=== PATIENT | female | born 1935 | race Caucasian/White ===

== ENCOUNTER 2017-01-12 15:14 | Inpatient (IN) ==
[2017-01-12] MEDS ORDERED: Furosemide 40 MG/4 ML VIAL IVP ONE (15:33)
--- NOTE | 2017-01-12 15:36 | Emergency Department Note ---
Disposition Clinical Impression: Congestive heart failure Qualifiers: Congestive heart failure type: unspecified congestive heart failure type Congestive heart failure chronicity: acute Qualified Code(s): I50.9 - Heart failure, unspecified Disposition: Admitted As Inpatient Condition: Fair Referrals: Ary Aponte MD [Primary Care Provider] - Forms: ED Satisfaction Letter Time of Disposition: 17:09 SOB HPI - General Chief Complaint: ED Shortness of Breath/Dyspnea Stated Complaint: [place] Time Seen by Provider: 01/12/17 15:19 Source: patient Mode of arrival: wheelchair Limitations: no limitations Nursing Notes Reviewed: Yes Vital Signs Reviewed: Yes - History of Present Illness 81-year-old comes in with increasing shortness of breath for the last several days. Patient has a history of CHF and has had a 10 pound weight gain in the last week. She does have increased lower extremity edema. Pt Subjective Complaint: shortness of breath Onset (ago): day(s) Severity: moderate Consistency/Duration: constant Improves with: nothing Worsens with: exertion Known history of: congestive heart failure Associated symptoms: Reports: wheezing. Denies: fever Treatment prior to arrival: none - Related Data Home Medications Medication Instructions Recorded Confirmed Aspirin [Adult Low Dose Aspirin EC] 81 mg PO QAM 10/02/15 01/12/17 Atorvastatin [Lipitor] 40 mg PO QPM 10/02/15 01/12/17 Benzonatate [Tessalon] 100 mg PO TID PRN 10/02/15 01/12/17 Calcium Carbonate/Vitamin D3 2 each PO QAM 10/02/15 01/12/17 [Calcium 600 + Vit D Tablet] Cholecalciferol (Vitamin D3) 1,000 unit PO BID 10/02/15 01/12/17 [Vitamin D3] Diazepam [Valium] 10 mg PO BID PRN 10/02/15 01/12/17 Digoxin [Lanoxin] 0.125 mg PO QAM 10/02/15 01/12/17 Furosemide [Lasix] 80 mg PO BID 10/02/15 01/12/17 Levothyroxine [Synthroid] 150 mcg PO QAM 10/02/15 01/12/17 Loratadine [Claritin] 10 mg PO QAM 10/02/15 01/12/17 Nitroglycerin [Nitrostat] 0.4 mg SL Q5M PRN 10/02/15 01/12/17 Omeprazole [PriLOSEC] 40 mg PO BID 10/02/15 01/12/17 Potassium Chloride [K-Tab ER] 20 meq PO BID 10/02/15 01/12/17 Warfarin [Coumadin] 2.5 mg PO DAILY 10/02/15 01/12/17 Spironolactone [Aldactone] 25 mg PO QPM 08/06/16 01/12/17 Carvedilol 3.125 mg PO BID 01/12/17 01/12/17 Insulin Lispro Protamin/Lispro 14 unit SQ QPM 01/12/17 01/12/17 [Humalog Mix 75-25 Vial] Insulin Lispro Protamin/Lispro 20 unit SQ QAM 01/12/17 01/12/17 [Humalog Mix 75-25 Vial] Tramadol HCl [Ultram] 50 mg PO Q6H PRN 01/12/17 01/12/17 Allergies Allergy/AdvReac Type Severity Reaction Status Date / Time acetaminophen [From Percocet] Allergy See Verified 01/12/17 15:24 Comments metoprolol Allergy Anaphylaxis Verified 01/12/17 15:24 Oxycodone [From Percocet] Allergy See Verified 01/12/17 15:24 Comments dye Allergy Anaphylaxis Uncoded 10/02/15 11:44 vicodin Allergy See Uncoded 08/06/16 17:30 Comments All systems ED: reviewed and negative except as stated. Constitutional: Denies: fever, chills, weakness, weight change Eyes: Denies: eye pain, eye discharge, vision change ENT ED: Denies: ear pain, throat pain, dental pain, hearing loss, epistaxis, congestion, dysphagia Cardiovascular: Denies: chest pain, palpitations, dyspnea on exertion, edema, syncope Respiratory: Reports: dyspnea. Denies: cough, wheezes, hemoptysis, stridor Gastrointestinal: Denies: abdominal pain, nausea, vomiting, diarrhea, constipation, hematemesis, melena, hematochezia Genitourinary: Denies: dysuria, frequency, hematuria, discharge Musculoskeletal: Denies: back pain, neck pain, arthralgia, myalgia Integumentary: Denies: rash, abrasion, lesions Neurological: Denies: headache, weakness, numbness, paresthesias, confusion, abnormal gait, vertigo Psychiatric: Denies: anxiety, depression, suicidal thoughts, homicidal thoughts , auditory hallucinations, visual hallucinations Endocrine: Denies: fatigue Hematological/Lymphatic: Denies: easy bleeding, easy bruising Allergic/Immunologic: Denies: facial swelling, urticaria Past Medical History - Past Medical History Medical history: Reports: atrial fibrillation, cancer, cardiomyopathy, CHF, coronary artery disease, CVA, diabetes, other Surgical history: Reports: coronary bypass (CABG), pacemaker/AICD Psychiatric history: Reports: no psych history - Social History Smoking Status: Former smoker Smokeless Tobacco Status: No Alcohol use: Reports: none Drug use: Reports: none Physical Exam - General Limitations: no limitations General appearance: alert, in distress - Head Head exam: atraumatic, normocephalic, normal inspection - ENT ENT exam: normal exam, normal oropharynx, mucous membranes moist - Neck Neck exam: Present: normal inspection, full ROM, trachea midline, other (2-3 cm of JVD at 45) - Chest Chest inspection: Present: normal inspection, symmetric chest wall rise - Respiratory Respiratory exam: Present: other (Diminished breath sounds with rales in the bases) - Cardiovascular Cardiovascular exam: Present: regular rate, normal rhythm, normal heart sounds - Abdominal Exam Abdominal exam: Present: soft, Non-Tender. Absent: tenderness, distention, guarding, rebound, rigidity - Extremities Exam Extremities exam: Present: pedal edema - Expanded Lower Extremity Exam Neurovascular/Tendon exam: Absent: motor deficit, sensory deficit, tendon deficit Gait: observed and normal - Back Exam Back exam: Present: normal inspection, full ROM. Absent: tenderness - Neurological Exam Neurological exam: Present: alert, oriented X3 - Psychiatric Psychiatric exam: Present: normal affect, normal mood - Skin Skin exam: Present: warm, dry, intact, normal color Course - Reevaluation(s) Reevaluation #1: 81-year-old female comes in with increasing shortness of breath and lower extremity edema. Examination shows rales in the bases. Chest x-ray was read by radiology as showing some pleural fluid however does look like she does have some pulmonary congestion. Her BNP is over 1200. Time: 17:08 - Consultations Consultation #1: Discussed with Dr. Angelo, admit. Time: 18:02 Vital Signs Temperature 97.5 F L 01/12/17 15:17 Pulse Rate 83 01/12/17 15:17 Respiratory Rate 24 01/12/17 15:17 Blood Pressure 153/75 01/12/17 15:17 O2 Sat by Pulse Oximetry 93 01/12/17 15:17 Temperature 97.5 F L 01/12/17 15:17 Pulse Rate 88 01/12/17 16:19 Respiratory Rate 22 01/12/17 16:19 Blood Pressure 102/64 01/12/17 16:19 O2 Sat by Pulse Oximetry 99 01/12/17 16:19 Oxygen Delivery Oxygen Delivery Nasal Cannula Shortness of Breath/Dyspnea - Lab Data Lab results reviewed: Yes I reviewed the patient's lab results. Result diagrams: 01/12/17 15:41 01/12/17 15:41 Lab Results 01/12/17 01/12/17 01/12/17 Range/Units 15:41 15:41 15:41 WBC 6.6 (4.3-11.1) K/mcL RBC 4.32 (3.82-4.97) M/mcL Hgb 8.6 L (11.5-15.4) g/dL Hct 29.6 L (35.3-44.9) % MCV 68.5 L (83.0-100.0) fL MCH 19.9 L (28.0-33.3) pg MCHC 29.1 L (31.6-35.5) g/dL RDW 19.6 H (11.5-14.5) % Plt Count 238 (140-400) K/mcL MPV 9.8 (9.4-12.4) fL Immature Gran % 0.3 (0-4) % Seg Neutrophils % 65.2 % Lymphocytes % 20.4 % Monocytes % 10.6 % Eosinophils % 2.9 % Basophils % 0.6 % Neutrophils # 4.3 (1.6-8.9) K/mcL Lymphocytes # 1.4 (0.6-4.6) K/mcL Monocytes # 0.7 (0.0-1.3) K/mcL Eosinophils # 0.2 (0.0-0.6) K/mcL Basophils # 0.0 (0.0-0.2) K/mcL Hypochromasia Present A (Not Present) Microcytosis Present A (Not Present) PT 31.9 H (9.4-12.1) Seconds INR 2.9 APTT 36.4 H (26.0-36.0) Seconds Sodium 135 L (136-145) mEq/L Potassium 4.0 (3.5-4.5) mEq/L Chloride 101 (98-109) mEq/L Carbon Dioxide 25 (19-29) mEq/L BUN 16 (7-20) mg/dL Creatinine 0.86 (0.57-1.11) mg/dL Est GFR ( Amer) > 60 (> 60) Est GFR (Non-Af Amer) > 60 (> 60) BUN/Creatinine Ratio 19 (6-26) Glucose 159 H (70-99) mg/dL Calculated Osmolality 285 (280-300) Calcium 8.7 (8.6-10.8) mg/dL Troponin I (0-0.03) ng/mL B-Natriuretic Peptide (0-100) pg/mL 01/12/17 01/12/17 Range/Units 15:41 15:41 WBC (4.3-11.1) K/mcL RBC (3.82-4.97) M/mcL Hgb (11.5-15.4) g/dL Hct (35.3-44.9) % MCV (83.0-100.0) fL MCH (28.0-33.3) pg MCHC (31.6-35.5) g/dL RDW (11.5-14.5) % Plt Count (140-400) K/mcL MPV (9.4-12.4) fL Immature Gran % (0-4) % Seg Neutrophils % % Lymphocytes % % Monocytes % % Eosinophils % % Basophils % % Neutrophils # (1.6-8.9) K/mcL Lymphocytes # (0.6-4.6) K/mcL Monocytes # (0.0-1.3) K/mcL Eosinophils # (0.0-0.6) K/mcL Basophils # (0.0-0.2) K/mcL Hypochromasia (Not Present) Microcytosis (Not Present) PT (9.4-12.1) Seconds INR APTT (26.0-36.0) Seconds Sodium (136-145) mEq/L Potassium (3.5-4.5) mEq/L Chloride (98-109) mEq/L Carbon Dioxide (19-29) mEq/L BUN (7-20) mg/dL Creatinine (0.57-1.11) mg/dL Est GFR ( Amer) (> 60) Est GFR (Non-Af Amer) (> 60) BUN/Creatinine Ratio (6-26) Glucose (70-99) mg/dL Calculated Osmolality (280-300) Calcium (8.6-10.8) mg/dL Troponin I 0.02 (0-0.03) ng/mL B-Natriuretic Peptide 1264 H (0-100) pg/mL - Radiology Data Radiology results reviewed: Yes I reviewed the patient's radiology results. Chest X-Ray 01/12/17 15:33 IMPRESSION: New small layering right pleural effusion. D/ / Farhan Vasquez MD / Farhan Vasquez MD Interpreting Provider: Farhan Vasquez MD - EKG Data EKG attestation: Yes I reviewed and interpreted this EKG. EKG results narrative: Paced rhythm
[2017-01-12 15:48] LABS: Basophils % 0.6 %
[2017-01-12 15:50] LABS: Eosinophils # 0.2 K/mcL (0.0-0.6); Eosinophils % 2.9 %; Hematocrit 29.6 % (35.3-44.9); Hemoglobin 8.6 g/dL (11.5-15.4); Immature Granulocytes % 0.3 % (0-4); Lymphocytes # 1.4 K/mcL (0.6-4.6); Lymphocytes % 20.4 %; Mean Corpuscular HGB Conc 29.1 g/dL (31.6-35.5); Mean Corpuscular Hemoglobin 19.9 pg (28.0-33.3); Mean Corpuscular Volume 68.5 fL (83.0-100.0); Mean Platelet Volume 9.8 fL (9.4-12.4); Monocytes # 0.7 K/mcL (0.0-1.3); Monocytes % 10.6 %; Neutrophils # 4.3 K/mcL (1.6-8.9); Platelet Count 238 K/mcL (140-400); Red Blood Count 4.32 M/mcL (3.82-4.97); Red Cell Distribution Width 19.6 % (11.5-14.5); Segmented Neutrophils % 65.2 %
[2017-01-12 15:56] LABS: INR 2.9; Prothrombin Time 31.9 Seconds (9.4-12.1)
[2017-01-12 15:59] LABS: Activated Partial Thrombo Time 36.4 Seconds (26.0-36.0)
[2017-01-12 16:02] LABS: BUN/Creatinine Ratio 19 (6-26); Blood Urea Nitrogen 16 mg/dL (7-20); Calcium 8.7 mg/dL (8.6-10.8); Carbon Dioxide 25 mEq/L (19-29); Chloride 101 mEq/L (98-109); Glucose 159 mg/dL (70-99); Osmolality,Calculated 285 (280-300); Sodium 135 mEq/L (136-145); eGFR For African Americans > 60 (> 60); eGFR For Non-African Americans > 60 (> 60)
[2017-01-12 16:10] LABS: Hypochromasia Present (Not Present); Microcytosis Present (Not Present)
[2017-01-12] MEDS ORDERED: Naloxone 0.4 MG/ML INJ IVP PRN (19:31)
[2017-01-12] MEDS ORDERED: Ondansetron 4 MG/2 ML VIAL IVP PRN (19:31)
[2017-01-12] MEDS ORDERED: Ibuprofen 400 MG TABLET PO PRN (19:31)
[2017-01-12] MEDS ORDERED: *HR* Morphine 2 MG/ML SYRINGE IVP PRN (19:31)
[2017-01-12] MEDS ORDERED: Benzonatate 100 MG CAPSULE PO PRN (19:40)
[2017-01-12] MEDS ORDERED: traMADol 50 MG TABLET PO PRN (19:40)
[2017-01-12] MEDS ORDERED: Nitroglycerin 0.4 MG TAB.SUBL SL PRN (19:40)
[2017-01-12] MEDS ORDERED: D5% in Water 1,000 ML IVC PRN (19:44)
[2017-01-12] MEDS ORDERED: Dextrose Gel 15 GM PO PRN ×2 (19:44)
[2017-01-12] MEDS ORDERED: *HR* Dextrose 50 % in Water (Syg) 50 ML SYRINGE IVP PRN (19:44)
--- NOTE | 2017-01-12 19:50 | Internal Med History&Physical ---
Date of Encounter: 01/13/17 Time of Encounter: 20:00 Assessment and Plan (1) Acute exacerbation of CHF (congestive heart failure) Current visit: No Status: Acute Qualifiers: Congestive heart failure type: combined Qualified Code(s): I50.43 - Acute on chronic combined systolic (congestive) and diastolic (congestive) heart failure Internal Medicine - H&P: HPI Chief complaint: Difficulty breathing Admitted From: Emergency Dept Plans for Post Hospital Care: Home History of present illness: Ms. Mosley is a 81 year old female with significant history for hypothyroidism , HTN, HLD, type II DM, CKD III, CAD/CABG/AMI, TIAs/CVA, chr Afib/chr A/C( warfarin), ischCMP/combined S/D CHF/LVEF<25%/AICDpacemaker, polyvalvular hrt dis (severeMR), GERD, OA/OP/vit D def, iron def/anemia, former smoker, etc.. Patient is admitted to [facility] via the emergency department when she presents reporting difficulty breathing over a several-day period of time. Patient has a known history of congestive heart failure and coronary artery disease. The patient reports a 10 pound weight gain within the last week in spite of being compliant with her prescribed treatments. She has noted increasing lower extremity edema, wheezing, easy fatigability, dyspnea with activity. Work of breathing at times has been moderate to severe. Aggravated with minimal exertion. She denies any associated fevers chills or sweats. Symptoms. Denies any overt chest pain palpitations syncope or presyncopal complaints. Periodic cough; nonproductive. Conversational dyspnea. Vital signs were stable except for moderate tachypnea at 22-24 and resting O2 saturation 93% on room air. 99% on 2 L per nasal cannula. Previously 6.6 hemoglobin 8.6 MCV 68.5 and see if the 29.1. RDW 19.6. Platelets 238,000. Differential normal. PTT 31.9 INR 2.9. PTT 36.4. Basic metabolic panel normal except sodium 135. Glucose 159 with osmolality 285. BUN creatinine normal at 16 and 0.86. Troponin 0.02. BNP 1264. EKG paced rhythm. No acute findings. Chest x-ray small layering right pleural effusion. Preliminary impression suggest acute on chronic combined systolic and diastolic CHF exacerbation just a background of advanced,end-stage ischemic cardiomyopathy. No evidence for acute coronary syndrome/unstable angina pectoris. No evidence for acute kidney injury and associated volume overload. The patient's advanced age, presenting complaints and comorbidities places her at increased risk for further acute clinical decline and morbidity. Workup and treatments will proceed comprehensively. The patient was visited and interviewed and examined. Cumulative laboratory and radiographic data base will be considered and discussed. Pertinent ancillary medical records including ECW and PCI documentation when available was reviewed and considered. Given the patient's presenting concerns, past medical history, clinical findings and symptoms, she is admitted at this time will undergo further evaluation and disposition. Orders were written as per the computerized physician order builder system.......................................................................... .................... Consultative opinions will be sought as clinical circumstances justify. Pain management needs will be addressed. Laboratory+radiographic data base will be updated as appropriate. Studies include: pt/inr, aptt, UA, CPK, cardiac injury panel, BNP, metabolic and hematologic panel, magnesium, phosphorus, ionized calcium, thyroid panel, lipid profile, A1c, C-peptide, CRP, sedimentation rate, blood gas, lactic acid, serologies, etc. Precautions: Aspiration, fall, delirium protocol/surveillance initiated. Telemetry with continuous hemodynamic monitoring and pulse oximetry initiated. Empiric antibiotic coverage: pending diagnostics/culture data. Special studies: CT chest, chest x-ray, telemetry, EKG, 2D echo. Consider pacemaker interrogation. Pulmonary toilet: Incentive spirometry, aerosol bronchodilator, mucolytic, antitussive, supplemental oxygen. Corticosteroid therapyPRN. CPAP/BiPAP supplemental oxygen delivery employed. Aerosol Mucomyst therapyPRN. Fluid and electrolyte repletion efforts will proceed. Careful attention to fluid balance and renal recovery will be emphasized. Avoidance of nephrotoxic exposure and adverse drug drug interaction in the setting of impaired renal function will be monitored closely. Acute coronary syndrome protocol/surveillance initiated. Beta george, aspirin , statin. IZABELA inhibitor. Nitrates. Morphine. Supplemental oxygen. Continuance of chronic anticoagulation (warfarin). Acute heart failure protocol/surveillance initiated. 1500 mL restriction of fluids per 24 hours. Strict adherence to no added salt cardiac diet restriction as addition to ADA dietary needs. Strict measurements of Input and output and daily weights. Diuresis adherence as permitted by total fluid balance and stable hemodynamics. Trial of metolazone plus Bumex drip for acute off-loading of volume excess. DVT and PUD prophylaxis initiated: PPI therapy, intermittent pneumatic cuffs. Early ambulation will be encouraged. Immunization updates recommended. Influenza and pneumococcal vaccinations as part of ongoing preventative healthcare recommendations strongly recommended. Smoking cessation counseling briefly addressed. Patient is a former smoker. Advanced care directive discussion addressed. Patient does declare healthcare restrictions at this time. Cardiovascular risk appraisal and cardiovascular risk reduction efforts will be emphasized. Physical+occupational therapy may be asked to evaluate patient's functional capacity and progress mobility if circumstances justify. Sliding scale insulin coverage, ADA dietary restraint and schedule an as-needed basis fingerstick glucose assessments were initiated. Nutrition/diabetes education counseling may be considered as circumstances justify. Outpatient medication schedules will be reviewed, confirmed and facilitated as appropriate. Reconciliation of home treatments including adjustments, substitutions and reintroduction into the treatment regimen will address necessary maintenance therapies for chronic pre-existing medical conditions. Plan of care has been reviewed and discussed in detail with the patient. Questions addressed. Hospital course dictated by clinical findings, treatment response and potential consultative interventions. Patient is at risk for further acute clinical decline due to her advanced age, presenting chief complaints and comorbid conditions. Condition is serious. Prognosis is guarded. CODE STATUS is DNR comfort care arrest. Past Med Surg Social Fam HX - Past Medical History Source: old records reviewed Medical history: arthritis, atrial fibrillation, cancer, cardiomyopathy, CHF, coronary artery disease, CVA, diabetes, GERD, hyperlipidemia, hypertension, malignancy, osteoporosis, renal disease, thyroid disease, TIA, valvular heart disease, other Psychiatric history: no psych history - Past Surgical History Surgical History: cancer surgery (Mohs procedure for right facial skin Ca.), coronary bypass (CABG), pacemaker/AICD, other, AICD, pacemaker - Social History Smoking Status: Former smoker Smokeless Tobacco Status: No Alcohol use: none Drug use: none Occupational status: unemployed, other Current living situation: Home - Independent, Other Activity Level: Independent ambulation, Mostly sedentary Recent Out of Country Travel Within the Last 8 Weeks: No Exposure or Possible Exposure to Illness During Travel: No - Family History Mother Living Status: Hx Family Cardiac Disorders: Yes Hx Family Endocrine Disorder: Yes (DM) Father Living Status: Hx Family Cardiac Disorders: Yes Hx Family Endocrine Disorder: Yes (DM) Internal Medicine - H&P: Meds Aspirin [Adult Low Dose Aspirin EC] 81 mg PO QAM 10/02/15 [History] Atorvastatin [Lipitor] 40 mg PO QPM 10/02/15 [History] Benzonatate [Tessalon] 100 mg PO TID PRN 10/02/15 [History] Calcium Carbonate/Vitamin D3 [Calcium 600 + Vit D Tablet] 2 each PO QAM [History] Cholecalciferol (Vitamin D3) [Vitamin D3] 1,000 unit PO BID 10/02/15 [History] Diazepam [Valium] 10 mg PO BID PRN 10/02/15 [History] Digoxin [Lanoxin] 0.125 mg PO QAM 10/02/15 [History] Furosemide [Lasix] 80 mg PO BID 10/02/15 [History] Levothyroxine [Synthroid] 150 mcg PO QAM 10/02/15 [History] Loratadine [Claritin] 10 mg PO QAM 10/02/15 [History] Nitroglycerin [Nitrostat] 0.4 mg SL Q5M PRN 10/02/15 [History] Omeprazole [PriLOSEC] 40 mg PO BID 10/02/15 [History] Potassium Chloride [K-Tab ER] 20 meq PO BID 10/02/15 [History] Warfarin [Coumadin] 2.5 mg PO DAILY 10/02/15 [History] Spironolactone [Aldactone] 25 mg PO QPM 08/06/16 [History] Carvedilol 3.125 mg PO BID 01/12/17 [History] Insulin Lispro Protamin/Lispro [Humalog Mix 75-25 Vial] 14 unit SQ QPM 01/12/17 [History] Insulin Lispro Protamin/Lispro [Humalog Mix 75-25 Vial] 20 unit SQ QAM 01/12/17 [History] Tramadol HCl [Ultram] 50 mg PO Q6H PRN 01/12/17 [History] Allergies acetaminophen [From Percocet] Allergy (Verified 01/12/17 15:24) See Comments metoprolol Allergy (Verified 01/12/17 15:24) Anaphylaxis Oxycodone [From Percocet] Allergy (Verified 01/12/17 15:24) See Comments dye Allergy (Uncoded 10/02/15 11:44) Anaphylaxis vicodin Allergy (Uncoded 08/06/16 17:30) See Comments All Systems PM: A 10-system review of systems was performed and is negative for pertinent findings except as documented above in the HPI. - Constitutional Constitutional: as per HPI, fatigue, malaise, weakness, weight gain, other, no chills, no fever(s), no night sweats - EENT Eyes: as per HPI, no change in vision, no discharge, no pain, no photophobia Ears: as per HPI, no ear discharge, no ear pain, no tinnitus Nose, mouth and throat: as per HPI, no dysphagia, no nasal discharge, no neck pain, no sore throat - Cardiovascular Cardiovascular ROS IM: as per HPI, dyspnea, dyspnea on exertion, edema, irregular heart rhythm, orthopnea, paroxysmal nocturnal dyspnea, no chest pain, no claudication, no diaphoresis, no lightheadedness, no palpitations, no syncope - Respiratory Respiratory: as per HPI, cough, dyspnea, dyspnea on exertion, other, no hemoptysis, no wheezing, no excessive phlegm production - Gastrointestinal Gastrointestinal: as per HPI, no abdominal pain, no diarrhea, no hematemesis, no hematochezia, no melena, no nausea, no vomiting - Genitourinary Genitourinary: as per HPI, no change in urinary stream, no dysuria, no flank pain, no hematuria - Musculoskeletal Musculoskeletal ROS IM: as per HPI, no numbness, no tingling - Integumentary Integumentary IM: as per HPI, no rash, no unusual bruising - Neurological Neurological ROS: as per HPI, no confusion, no convulsions, no focal weakness, no numbness, no tingling, no tremor(s) - Psychiatric Psychiatric: as per HPI - Endocrine Endocrine IM: as per HPI - Hematologic/Lymphatic Hematologic/Lymphatic: as per HPI, no easy bruising - Allergic/Immunologic Allergic/Immunologic: as per HPI - Constitutional Vitals: Temp Pulse Resp BP Pulse Ox 97.5 F L 85 20 106/68 99 01/12/17 15:17 01/12/17 18:46 01/12/17 18:46 01/12/17 18:46 01/12/17 18:46 Vital Signs Temp Pulse Resp BP Pulse Ox 01/12/17 18:46 85 20 106/68 99 01/12/17 16:19 88 22 102/64 99 01/12/17 15:27 100 01/12/17 15:17 97.5 F L 83 24 153/75 93 Intake and Output 01/12/17 01/12/17 01/12/17 07:59 15:59 23:59 Other: Weight 63.049 kg Patient Weight 01/12/17 23:59 Weight 63.049 kg General appearance: Present: cooperative, mild distress, A&O X 3, pleasant, answers questions appropriately - Head Head exam: Present: atraumatic, normocephalic - Eye Eye exam: Present: EOMI, PERRL, conjuntiva pink, sclera anicteric Pupils: Present: normal accommodation, PERRL - ENT ENT exam: Present: mucous membranes moist, normal oropharynx - Neck Neck exam general surgery: Present: full ROM, supple, trachea midline. Absent: lymphadenopathy - Respiratory Respiratory exam: Present: chest wall tenderness, decreased breath sounds, rales , wheezes, tachypnea. Absent: accessory muscle use, CTAB, rhonchi, stridor - Cardiovascular Cardiovascular exam: Present: distant heart sounds, irregular rhythm, +S1, +S2. Absent: diastolic murmur, gallop, rubs, systolic murmur - GI/Abdominal GI/Abdominal exam: Present: normal bowel sounds, soft, no peritoneal signs. Absent: distended, tenderness - Extremities Exam Extremities exam: Present: full ROM, pedal edema, warm, radial pulses palpable and symetrical. Absent: calf tenderness, cyanotic - Neurological Exam Neurological exam: Present: alert, CN II-XII intact, oriented X3, no focal deficits. Absent: pronater drift, facial droop, speech deficit - Psychiatric Psychiatric exam: Present: normal affect, normal mood - Skin Skin exam: Present: dry, intact, warm Internal Med - H&P Results - Labs CBC & Chem 7: 01/12/17 15:41 01/12/17 15:41 Labs: Short CBC 01/12/17 Range/Units 15:41 WBC 6.6 (4.3-11.1) K/mcL Hgb 8.6 L (11.5-15.4) g/dL Hct 29.6 L (35.3-44.9) % Plt Count 238 (140-400) K/mcL Neutrophils # 4.3 (1.6-8.9) K/mcL BMP 01/12/17 15:41 Sodium 135 L Potassium 4.0 Chloride 101 Carbon Dioxide 25 BUN 16 Creatinine 0.86 Glucose 159 H Calcium 8.7 Cardiac Enzymes 01/12/17 Range/Units 15:41 Troponin I 0.02 (0-0.03) ng/mL Short CBC 01/12/17 Range/Units 15:41 WBC 6.6 (4.3-11.1) K/mcL Hgb 8.6 L (11.5-15.4) g/dL Hct 29.6 L (35.3-44.9) % Plt Count 238 (140-400) K/mcL Neutrophils # 4.3 (1.6-8.9) K/mcL BMP 01/12/17 Range/Units 15:41 Sodium 135 L (136-145) mEq/L Potassium 4.0 (3.5-4.5) mEq/L Chloride 101 (98-109) mEq/L Carbon Dioxide 25 (19-29) mEq/L BUN 16 (7-20) mg/dL Creatinine 0.86 (0.57-1.11) mg/dL Glucose 159 H (70-99) mg/dL Calcium 8.7 (8.6-10.8) mg/dL Cardiac Enzymes 01/12/17 Range/Units 15:41 Troponin I 0.02 (0-0.03) ng/mL Abnormal lab results Hgb 8.6 g/dL (11.5-15.4) L 01/12/17 15:41 Hct 29.6 % (35.3-44.9) L 01/12/17 15:41 MCV 68.5 fL (83.0-100.0) L 01/12/17 15:41 MCH 19.9 pg (28.0-33.3) L 01/12/17 15:41 MCHC 29.1 g/dL (31.6-35.5) L 01/12/17 15:41 RDW 19.6 % (11.5-14.5) H 01/12/17 15:41 Hypochromasia Present (Not Present) A 01/12/17 15:41 Microcytosis Present (Not Present) A 01/12/17 15:41 PT 31.9 Seconds (9.4-12.1) H 01/12/17 15:41 APTT 36.4 Seconds (26.0-36.0) H 01/12/17 15:41 Sodium 135 mEq/L (136-145) L 01/12/17 15:41 Glucose 159 mg/dL (70-99) H 01/12/17 15:41 B-Natriuretic Peptide 1264 pg/mL (0-100) H 01/12/17 15:41 Laboratory Results WBC 6.6 K/mcL (4.3-11.1) 01/12/17 15:41 RBC 4.32 M/mcL (3.82-4.97) 01/12/17 15:41 Hgb 8.6 g/dL (11.5-15.4) L 01/12/17 15:41 Hct 29.6 % (35.3-44.9) L 01/12/17 15:41 MCV 68.5 fL (83.0-100.0) L 01/12/17 15:41 MCH 19.9 pg (28.0-33.3) L 01/12/17 15:41 MCHC 29.1 g/dL (31.6-35.5) L 01/12/17 15:41 RDW 19.6 % (11.5-14.5) H 01/12/17 15:41 Plt Count 238 K/mcL (140-400) 01/12/17 15:41 MPV 9.8 fL (9.4-12.4) 01/12/17 15:41 Immature Gran % 0.3 % (0-4) 01/12/17 15:41 Seg Neutrophils % 65.2 % 01/12/17 15:41 Lymphocytes % 20.4 % 01/12/17 15:41 Monocytes % 10.6 % 01/12/17 15:41 Eosinophils % 2.9 % 01/12/17 15:41 Basophils % 0.6 % 01/12/17 15:41 Neutrophils # 4.3 K/mcL (1.6-8.9) 01/12/17 15:41 Lymphocytes # 1.4 K/mcL (0.6-4.6) 01/12/17 15:41 Monocytes # 0.7 K/mcL (0.0-1.3) 01/12/17 15:41 Eosinophils # 0.2 K/mcL (0.0-0.6) 01/12/17 15:41 Basophils # 0.0 K/mcL (0.0-0.2) 01/12/17 15:41 Hypochromasia Present (Not Present) A 01/12/17 15:41 Microcytosis Present (Not Present) A 01/12/17 15:41 PT 31.9 Seconds (9.4-12.1) H 01/12/17 15:41 INR 2.9 01/12/17 15:41 APTT 36.4 Seconds (26.0-36.0) H 01/12/17 15:41 Sodium 135 mEq/L (136-145) L 01/12/17 15:41 Potassium 4.0 mEq/L (3.5-4.5) 01/12/17 15:41 Chloride 101 mEq/L (98-109) 01/12/17 15:41 Carbon Dioxide 25 mEq/L (19-29) 01/12/17 15:41 BUN 16 mg/dL (7-20) 01/12/17 15:41 Creatinine 0.86 mg/dL (0.57-1.11) 01/12/17 15:41 Est GFR ( Amer) > 60 (> 60) 01/12/17 15:41 Est GFR (Non-Af Amer) > 60 (> 60) 01/12/17 15:41 BUN/Creatinine Ratio 19 (6-26) 01/12/17 15:41 Glucose 159 mg/dL (70-99) H 01/12/17 15:41 Calculated Osmolality 285 (280-300) 01/12/17 15:41 Calcium 8.7 mg/dL (8.6-10.8) 01/12/17 15:41 Troponin I 0.02 ng/mL (0-0.03) 01/12/17 15:41 B-Natriuretic Peptide 1264 pg/mL (0-100) H 01/12/17 15:41 Impressions Chest X-Ray 01/12/17 15:33 IMPRESSION: New small layering right pleural effusion. D/ / Farhan Vasquez MD / Farhan Vasquez MD Interpreting Provider: Farhan Vasquez MD - Impressions ITS Impressions Chest X-Ray 01/12/17 15:33
[2017-01-12 20:15] LABS: VBG HCO3 30.9 mEq/L (21-27); VBG PH 7.39 pH Units (7.32-7.42)
[2017-01-12 20:50] LABS: Hemoglobin A1C 6.9 %
[2017-01-12] MEDS ORDERED: metOLazone 2.5 MG TABLET PO SCH (21:00)
[2017-01-12] MEDS ORDERED: Bumetanide 12 MG in D5% in Water 48 ML IVC SCH (22:00)
[2017-01-12] MEDS ORDERED: 0.9 % Sodium Chloride 500 ML ONE (22:11)
[2017-01-12] MEDS: diazePAM 10 MG TABLET PO PRN (22:26)
[2017-01-13 00:53] LABS: Bilirubin,Urine Negative (Negative); Blood,Urine Negative (Negative); Clarity,Urine Clear (Clear); Color,Urine Yellow (Yellow); Glucose,Urine (UA) Normal (Normal); Ketones,Urine Negative (Negative); Leukocyte Esterase,Urine Negative (Negative); Nitrite,Urine Negative (Negative); PH,Urine 6.5 pH Units (5.0-8.0); Protein,Urine Negative (Neg-Trace); Specific Gravity,Urine 1.011 (1.010-1.025); Urobilinogen,Urine Normal (Normal)
[2017-01-13 06:48] LABS: INR 2.7; Prothrombin Time 30.1 Seconds (9.4-12.1)
[2017-01-13 06:51] LABS: Activated Partial Thrombo Time 35.4 Seconds (26.0-36.0)
[2017-01-13 07:00] LABS: Albumin 3.8 g/dL (3.5-5.0); Albumin/Globulin Ratio 1.1 (1.1-2.2); Alkaline Phosphatase 118 Units/L (38-126); Aspartate Amino Transferase 20 Units/L (5-34); BUN/Creatinine Ratio 19 (6-26); Bilirubin,Total 1.1 mg/dL (0.2-1.2); Blood Urea Nitrogen 16 mg/dL (7-20); Calcium 9.3 mg/dL (8.6-10.8); Carbon Dioxide 32 mEq/L (19-29); Chloride 97 mEq/L (98-109); Cholesterol 91 mg/dL (< 200); Globulin 3.6 g/dL (2.4-3.5); Glucose 102 mg/dL (70-99); HDL Cholesterol 23 mg/dL (40-59); LDL Cholesterol,Calculated 51 mg/dL (0-99); Magnesium 1.6 mg/dL (1.6-2.6); Osmolality,Calculated 289 (280-300); Sodium 139 mEq/L (136-145); Total Protein 7.4 g/dL (6.0-8.3); Triglycerides 85 mg/dL (< 150); eGFR For African Americans > 60 (> 60); eGFR For Non-African Americans > 60 (> 60)
[2017-01-13 07:01] LABS: Alanine Aminotransferase < 6 Units/L (0-55)
[2017-01-13 07:22] LABS: Thyroid Stimulating Hormone 1.666 mcIU/mL (0.350-4.840)
[2017-01-13] MEDS ORDERED: Furosemide 40 MG TABLET PO SCH (08:00)
[2017-01-13] MEDS ORDERED: Perflutren Lipid Microsphere 1.3 ML in 0.9 % Sodium Chloride 8.7 ML IVP ONE (08:03)
[2017-01-13] MEDS ORDERED: Perflutren Lipid Microsphere 2 ML VIAL ONE (08:04)
[2017-01-13] MEDS ORDERED: Insulin NPH/REG 70/30 300 UNIT/3 ML VIAL SQ SCH (09:00)
[2017-01-13] MEDS ORDERED: NON-FORMULARY MEDICATION 1 EACH EACH (Insulin Lispro Protamin/Lispro [Humalog Mix 75-25 Vi SQ SCH ×2 (09:00→18:00)
[2017-01-13] MEDS: Aspirin Enteric Coated 81 MG Tablet PO SCH (09:02)
[2017-01-13] MEDS: *HR* Digoxin 0.125 MG TABLET PO SCH (09:03)
[2017-01-13] MEDS: Loratadine 10 MG TABLET PO SCH (09:03)
[2017-01-13] MEDS: Insulin NPH/REG 70/30 100 UNIT/ML (x5UNIT) SQ SCH ×2 (09:16→19:06)
--- NOTE | 2017-01-13 10:38 | ECHO - Doppler Report ---
Echo with Imaging Enhancement Agent Name: Wally Mosley Date of Study: 01/13/2017 Date: 1935 Ht: 65.0 in Medical Record#: [id number] Age: 81 Wt: 139.0 lb Gender: Female BSA: 1.69 Order #: [id number] Location: [facility] Room #: [id number] Reading Physician: Chris Polanco DO, [facility] Health Commissioner: Chano Navarrete RN Ordering Physician: Ignacio Sims MD Primary Physician: Ary Aponte MD Indications: Congestive heart failure Impressions: LVEF 25%. Mildly dilated left ventricle. Severe global and segmental left ventricular systolic dysfunction. Indeterminate diastolic function. Mildly dilated right ventricle. Mild right ventricular hypokinesis. Severely dilated left atrium. Severely dilated right atrium. Severe mitral regurgitation. Moderate-severe tricuspid regurgitation. Severe pulmonary hypertension. Estimated RVSP is > 80 mmHg. Left Ventricular Wall Motion: Rest Echo Findings The basal inferior, apical anterior, mid anterior, basal anterior, basal inferior septal, apical lateral, mid anterior lateral, basal anterior lateral, mid inferior lateral, basal anterior septal and basal inferior lateral banerjee were hypokinetic. The apex, apical inferior, mid inferior, apical septal, mid inferior septal and mid anterior septal banerjee were akinetic. Findings: Study Quality * Technically adequate exam. ECG Findings * Paced rhythm. Left Ventricle * LVEF 25%. * Mildly dilated left ventricle. * Severe global and segmental left ventricular systolic dysfunction. * Indeterminate diastolic function. Right Ventricle * Mildly dilated right ventricle. * Mild right ventricular hypokinesis. Left Atrium * Severely dilated left atrium. Right Atrium * Severely dilated right atrium. Interatrial Septum * Interatrial septum not well evaluated. Aortic Valve * Trileaflet aortic valve. * Mildly sclerotic aortic valve leaflets. * Trace aortic regurgitation. * No aortic stenosis. Mitral Valve * Mildly thickened mitral valve leaflets. * Severe mitral regurgitation. * No mitral stenosis. Tricuspid Valve * Normal tricuspid valve structure. * Moderate-severe tricuspid regurgitation. * Severe pulmonary hypertension. * Estimated RVSP is > 80 mmHg. * Estimated RA pressure is 10 mmHg. Pulmonic Valve * Normal pulmonic valve structure. * Mild pulmonic regurgitation. Aorta * Normally sized aortic root. Pericardium * The pericardium appears normal. IVC * Normal IVC dimensions and inspiratory collapse. Pulmonary Artery * Normal visualized portions of the main pulmonary artery. History Hypertension Diabetes Hypercholesteremia Years 20 Packs 2 Family History of CAD History of CAD/PTCA Myocardial Infarction Coronary Artery Bypass Graft Congestive Heart Failure Pacer/ICD Implant Valvular Disease 04/09/2016 a Previous Echo was performed. Contrast: Definity 1.3 ml in 8.7 ml of saline 2 ml. Measurements: BP: 100/ 68 2D Normal Values RVIDd: 3.70 cm <2.7 cm IVSd: .70 cm 0.6 - 1.0 cm LVIDd: 5.70 cm 3.7 - 5.6 cm LVPWd: .90 cm 0.6 - 1.1 cm LVIDs: 4.60 cm 1.5 - 3.6 cm LA: 4.80 cm 2.0 - 4.0cm %FS: 19.30 cm >25 % LVOT Diam: 1.50 cm LA volume: 112 Mitral Valve Peak E:1.20 m/sec Peak E' Lat Calderon:4.39 cm/s Peak E' Med Calderon:3.9 cm/s E/E' Lat Ratio:27.3 E/E' Med Ratio:30.8 Aortic Valve AI pressure Half-time: 521.00 msec Tricuspid Valve TV Regurg Peak Grad: 78.00mmHg TV Regurg Peak Calderon: 4.42m/sec Updated by Chris Polanco DO, FACHaylee, HIRAL, LEODAN on 01/13/2017 10:34:32 AM electronically signed on 01/13/2017 10:35:00 AM with status of Final Wall Motion Tavares: 1=Normal, 2=Hypokinesis, 3=Akinesis, 4=Dyskinesis, 5=Aneurysmal, 6=Hyperkinetic, X=Not Visualized (Blank)=Missing
[2017-01-13] MEDS ORDERED: traMADol 50 MG TABLET PO PRN (13:41)
[2017-01-13] MEDS ORDERED: 0.9 % Sodium Chloride 250 ML IVC PRN (14:58)
--- NOTE | 2017-01-13 15:13 | Internal Med Progress Note ---
Date of Encounter: 01/13/17 Time of Encounter: 14:52 - Assessment and plan (1) Acute exacerbation of CHF (congestive heart failure) Current Visit: No Status: Acute Assessment and plan: 2D echo reported of LVEF of 25% with mildly dilated LV. Severe global and segmenal left ventricular systolic dyfunction Repeat 2D echo consistent with prior findings will continue diuretic support as BP permits continue O2 supplementation monitor O2 saturation monitor daily weights, I/Os fluid restriction diet Qualifiers: Congestive heart failure type: combined Qualified Code(s): I50.43 - Acute on chronic combined systolic (congestive) and diastolic (congestive) heart failure (2) Hypokalemia Current Visit: Yes Status: Acute Assessment and plan: K supplemented continue to monitor electrolytes and replace as needed (3) Diabetes Current Visit: No Status: Chronic Assessment and plan: FS within acceptable range continue home insulin dosing starting SS insulin algorithm monitor FS and BG Qualifiers: Diabetes mellitus type: type 2 Diabetes mellitus complication status: without complication Diabetes mellitus intermediate insulin use: with intermediate use Qualified Code(s): E11.9 - Type 2 diabetes mellitus without complications ; Z79.4 - skilled nursing (current) use of insulin (4) Hypertension Current Visit: No Status: Chronic Assessment and plan: Noted to be hypotensive hold all antihypertensive medications at this time currently asymptomatic, will continue to closely monitor will bolus IVF if MAP<65 Qualifiers: Hypertension type: essential hypertension Qualified Code(s): I10 - Essential (primary) hypertension (5) Atrial fibrillation Current Visit: No Status: Chronic Assessment and plan: rate controlled with Digoxin, will continue anticoagulated with Coumadin monitor daily INR, goal INR: 2-3 Qualifiers: Atrial fibrillation type: permanent Qualified Code(s): I48.2 - Chronic atrial fibrillation (6) CAD (coronary artery disease) Current Visit: No Status: Chronic Qualifiers: Coronary Disease-Associated Artery/Lesion type: bypass graft [place] vs. transplanted heart: [place] heart Associated angina: without angina Qualified Code(s): I25.810 - Atherosclerosis of coronary artery bypass graft(s) without angina pectoris (7) DVT prophylaxis Current Visit: Yes Status: Acute Assessment and plan: anticoagulated with coumadin - Subjective Interval history: Patient seen and examined at bedside. Resting in bed and reports of feeling better since admission. Patient noted to be hypotensive but is currently asymptomatic. She was noted to receive Lasix and Bumetanide overnight which could be contributing to her hypotension. She denies any chest pain or respiratory distress at this time. - Constitutional Vitals: Temp Pulse Resp BP Pulse Ox 97.7 F 76 16 86/54 96 01/13/17 11:00 01/13/17 11:00 01/13/17 11:00 01/13/17 11:00 01/13/17 11:00 General appearance: Present: cooperative, A&O X 3, pleasant, no acute distress, answers questions appropriately - Head Head exam: Present: atraumatic, normocephalic - Eye Eye exam: Present: normal appearance, conjuntiva pink, sclera anicteric - Respiratory Respiratory exam: Present: CTAB. Absent: respiratory distress, wheezes - Cardiovascular Cardiovascular exam: Present: RRR, +S1, +S2. Absent: diastolic murmur, gallop, rubs, systolic murmur - GI/Abdominal GI/Abdominal exam: Present: normal bowel sounds, soft, no peritoneal signs. Absent: distended, tenderness - Extremities Exam Extremities exam: Present: warm, radial pulses palpable and symetrical. Absent : calf tenderness Additional comments: Bilateral lower extremity edema - Neurological Exam Neurological exam: Present: alert, oriented X3 - Psychiatric Psychiatric exam: Present: normal affect, normal mood Internal Medicine: Result - Labs CBC & Chem 7: 01/12/17 15:41 01/13/17 05:55 Labs: BMP 01/13/17 05:55 Sodium 139 Potassium 3.0 L D Chloride 97 L Carbon Dioxide 32 H BUN 16 Creatinine 0.84 Glucose 102 H Calcium 9.3 Cardiac Enzymes 01/12/17 01/13/17 01/13/17 Range/Units 22:41 05:55 12:05 Troponin I 0.03 0.02 0.02 (0-0.03) ng/mL Liver Function 01/13/17 Range/Units 05:55 Total Bilirubin 1.1 (0.2-1.2) mg/dL AST 20 (5-34) Units/L ALT < 6 (0-55) Units/L Alkaline Phosphatase 118 (38-126) Units/L Albumin 3.8 (3.5-5.0) g/dL Urine 01/13/17 Range/Units 00:01 Urine Color Yellow (Yellow) Urine Clarity Clear (Clear) Urine pH 6.5 (5.0-8.0) pH Units Ur Specific [place] 1.011 (1.010-1.025) Urine Protein Negative (Neg-Trace) mg/dL Urine Glucose (UA) Normal (Normal) mg/dL - ABG Interpretation ABG results: PT/INR, D-dimer PT 30.1 Seconds (9.4-12.1) H 01/13/17 05:55 Consult Discharge Plan - Plan Referrals: Ary Aponte MD [Primary Care Provider] - (web request sent on 01/13/17)
[2017-01-13] MEDS: Insulin LISPRO 300 UNITS/3 ML VIAL SQ SCH ×2 (16:25→21:45)
[2017-01-13] MEDS: Spironolactone 25 MG TABLET PO SCH (17:03)
[2017-01-13] MEDS ORDERED: *HR* Warfarin 2.5 MG TABLET PO ONE (18:00)
[2017-01-13] MEDS ORDERED: Warfarin perPT PO PRN (18:00)
--- NOTE | 2017-01-13 18:19 | Electrocardiograph Report ---
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
--- NOTE | 2017-01-13 18:28 | Electrocardiograph Report ---
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
[2017-01-13] MEDS: Furosemide 40 MG TABLET PO SCH (21:47)
[2017-01-13] MEDS: diazePAM 10 MG TABLET PO PRN (22:10)
[2017-01-14] MEDS: Acetaminophen 325 MG TABLET PO PRN (02:47)
[2017-01-14 07:08] LABS: INR 2.6; Prothrombin Time 29.2 Seconds (9.4-12.1)
[2017-01-14 07:16] LABS: Basophils % 0.5 %; Eosinophils # 0.2 K/mcL (0.0-0.6); Eosinophils % 2.5 %; Hematocrit 28.3 % (35.3-44.9); Hemoglobin 8.4 g/dL (11.5-15.4); Immature Granulocytes % 0.2 % (0-4); Lymphocytes # 1.2 K/mcL (0.6-4.6); Lymphocytes % 20.6 %; Mean Corpuscular HGB Conc 29.7 g/dL (31.6-35.5); Mean Corpuscular Hemoglobin 19.9 pg (28.0-33.3); Mean Corpuscular Volume 66.9 fL (83.0-100.0); Mean Platelet Volume 9.8 fL (9.4-12.4); Monocytes # 0.7 K/mcL (0.0-1.3); Neutrophils # 3.9 K/mcL (1.6-8.9); Platelet Count 227 K/mcL (140-400); Red Blood Count 4.23 M/mcL (3.82-4.97); Red Cell Distribution Width 19.1 % (11.5-14.5); Segmented Neutrophils % 65.2 %
[2017-01-14 07:22] LABS: BUN/Creatinine Ratio 20 (6-26); Blood Urea Nitrogen 15 mg/dL (7-20); Calcium 8.8 mg/dL (8.6-10.8); Carbon Dioxide 31 mEq/L (19-29); Chloride 98 mEq/L (98-109); Glucose 106 mg/dL (70-99); Magnesium 1.6 mg/dL (1.6-2.6); Osmolality,Calculated 291 (280-300); Potassium 3.1 mEq/L (3.5-4.5); Sodium 140 mEq/L (136-145); eGFR For African Americans > 60 (> 60); eGFR For Non-African Americans > 60 (> 60)
[2017-01-14] MEDS: Insulin LISPRO 300 UNITS/3 ML VIAL SQ SCH ×4 (07:39→21:17)
[2017-01-14 08:07] LABS: Anisocytosis 2+ (Not Present); Microcytosis Present (Not Present)
[2017-01-14 08:08] LABS: Ovalocytes 1+ (Not Present); Platelet Estimate Normal (Normal)
[2017-01-14] MEDS: Loratadine 10 MG TABLET PO SCH (09:09)
[2017-01-14] MEDS: *HR* Digoxin 0.125 MG TABLET PO SCH (09:10)
[2017-01-14] MEDS: Aspirin Enteric Coated 81 MG Tablet PO SCH (09:10)
[2017-01-14] MEDS: Insulin NPH/REG 70/30 100 UNIT/ML (x5UNIT) SQ SCH ×2 (09:11→17:59)
[2017-01-14] MEDS: Furosemide 40 MG TABLET PO SCH ×2 (09:33→16:41)
--- NOTE | 2017-01-14 11:23 | Internal Med Progress Note ---
Date of Encounter: 01/14/17 Time of Encounter: 11:23 - Assessment and plan (1) Acute exacerbation of CHF (congestive heart failure) Current Visit: No Status: Acute Assessment and plan: 2D echo reported of LVEF of 25% with mildly dilated LV. Severe global and segmenal left ventricular systolic dyfunction Repeat 2D echo consistent with prior findings will continue diuretic support as BP permits continue O2 supplementation monitor O2 saturation monitor daily weights, I/Os fluid restriction diet discharge planning: PT eval (patient reports of living alone and has been having difficulties ambulating around the house) Qualifiers: Congestive heart failure type: combined Qualified Code(s): I50.43 - Acute on chronic combined systolic (congestive) and diastolic (congestive) heart failure (2) Hypokalemia Current Visit: Yes Status: Acute Assessment and plan: K supplemented continue to monitor electrolytes and replace as needed (3) Diabetes Current Visit: No Status: Chronic Assessment and plan: FS within acceptable range continue home insulin dosing starting SS insulin algorithm monitor FS and BG Qualifiers: Diabetes mellitus type: type 2 Diabetes mellitus complication status: without complication Diabetes mellitus ocean transportation intermediary insulin use: with jail use Qualified Code(s): E11.9 - Type 2 diabetes mellitus without complications ; Z79.4 - [facility] (current) use of insulin (4) Hypertension Current Visit: No Status: Chronic Assessment and plan: BP better controlled Will continue to hold all antihypertensive medications at this time and restart as needed currently asymptomatic, will continue to closely monitor will bolus IVF if MAP<65 Qualifiers: Hypertension type: essential hypertension Qualified Code(s): I10 - Essential (primary) hypertension (5) Atrial fibrillation Current Visit: No Status: Chronic Assessment and plan: rate controlled with Digoxin, will continue anticoagulated with Coumadin monitor daily INR, goal INR: 2-3 Qualifiers: Atrial fibrillation type: permanent Qualified Code(s): I48.2 - Chronic atrial fibrillation (6) CAD (coronary artery disease) Current Visit: No Status: Chronic Qualifiers: Coronary Disease-Associated Artery/Lesion type: bypass graft [place] vs. transplanted heart: [place] heart Associated angina: without angina Qualified Code(s): I25.810 - Atherosclerosis of coronary artery bypass graft(s) without angina pectoris (7) DVT prophylaxis Current Visit: Yes Status: Acute Assessment and plan: anticoagulated with coumadin - Subjective Interval history: Patient seen and examined at bedside. Resting in chair and reports of feeling better compared to the previous day. No overnight issues were reported. - Constitutional Vitals: Temp Pulse Resp BP Pulse Ox 97.8 F 70 14 117/73 98 01/14/17 08:30 01/14/17 08:30 01/14/17 08:30 01/14/17 08:30 01/14/17 08:30 General appearance: Present: cooperative, A&O X 3, pleasant, no acute distress, answers questions appropriately - Head Head exam: Present: atraumatic, normocephalic - Eye Eye exam: Present: normal appearance, conjuntiva pink, sclera anicteric - Respiratory Respiratory exam: Absent: respiratory distress, wheezes (decreased breath sounds on bilateral bases) - Cardiovascular Cardiovascular exam: Present: RRR, +S1, +S2. Absent: diastolic murmur, gallop, rubs, systolic murmur - GI/Abdominal GI/Abdominal exam: Present: normal bowel sounds, soft, no peritoneal signs. Absent: distended, tenderness - Extremities Exam Extremities exam: Present: warm, radial pulses palpable and symetrical ( bilateral LE pitting edema ). Absent: calf tenderness - Neurological Exam Neurological exam: Present: alert, oriented X3 - Psychiatric Psychiatric exam: Present: normal affect, normal mood Internal Medicine: Result - Labs CBC & Chem 7: 01/14/17 06:42 01/14/17 06:42 Labs: Short CBC 01/14/17 Range/Units 06:42 WBC 5.9 (4.3-11.1) K/mcL Hgb 8.4 L (11.5-15.4) g/dL Hct 28.3 L (35.3-44.9) % Plt Count 227 (140-400) K/mcL Neutrophils # 3.9 (1.6-8.9) K/mcL BMP 01/14/17 06:42 Sodium 140 Potassium 3.1 L Chloride 98 Carbon Dioxide 31 H BUN 15 Creatinine 0.75 Glucose 106 H Calcium 8.8 - ABG Interpretation ABG results: PT/INR, D-dimer PT 29.2 Seconds (9.4-12.1) H 01/14/17 06:42 Consult Discharge Plan - Plan Referrals: Ary Aponte MD [Primary Care Provider] - 01/20/17 3:15 pm ()
[2017-01-14] MEDS: Spironolactone 25 MG TABLET PO SCH (16:41)
[2017-01-14] MEDS ORDERED: *HR* Warfarin 2.5 MG TABLET PO SCH (18:00)
[2017-01-14] MEDS: diazePAM 10 MG TABLET PO PRN (21:24)
[2017-01-15 06:29] LABS: Basophils % 0.5 %; Eosinophils # 0.3 K/mcL (0.0-0.6); Eosinophils % 4.6 %; Hematocrit 27.3 % (35.3-44.9); Immature Granulocytes % 0.2 % (0-4); Lymphocytes # 1.1 K/mcL (0.6-4.6); Lymphocytes % 19.6 %; Mean Corpuscular HGB Conc 29.3 g/dL (31.6-35.5); Mean Corpuscular Hemoglobin 19.8 pg (28.0-33.3); Mean Corpuscular Volume 67.6 fL (83.0-100.0); Mean Platelet Volume 10.3 fL (9.4-12.4); Monocytes # 0.6 K/mcL (0.0-1.3); Neutrophils # 3.7 K/mcL (1.6-8.9); Platelet Count 226 K/mcL (140-400); Red Blood Count 4.04 M/mcL (3.82-4.97); Red Cell Distribution Width 19.1 % (11.5-14.5); Segmented Neutrophils % 64.1 %
[2017-01-15 06:34] LABS: INR 2.4; Prothrombin Time 27.1 Seconds (9.4-12.1)
[2017-01-15 07:02] LABS: BUN/Creatinine Ratio 24 (6-26); Blood Urea Nitrogen 19 mg/dL (7-20); Calcium 8.5 mg/dL (8.6-10.8); Carbon Dioxide 32 mEq/L (19-29); Chloride 100 mEq/L (98-109); Glucose 104 mg/dL (70-99); Magnesium 1.8 mg/dL (1.6-2.6); Osmolality,Calculated 293 (280-300); Phosphorous 3.9 mg/dL (2.3-4.7); Potassium 3.8 mEq/L (3.5-4.5); Sodium 140 mEq/L (136-145); eGFR For African Americans > 60 (> 60); eGFR For Non-African Americans > 60 (> 60)
[2017-01-15 07:33] LABS: Anisocytosis 1+ (Not Present); Hypochromasia Present (Not Present); Microcytosis Present (Not Present); Platelet Estimate Normal (Normal); Polychromasia 1+ (Not Present)
[2017-01-15] MEDS: Insulin LISPRO 300 UNITS/3 ML VIAL SQ SCH (08:53)
[2017-01-15] MEDS: Aspirin Enteric Coated 81 MG Tablet PO SCH (09:18)
[2017-01-15] MEDS: Furosemide 40 MG TABLET PO SCH (09:18)
[2017-01-15] MEDS: Loratadine 10 MG TABLET PO SCH (09:18)
[2017-01-15] MEDS: *HR* Digoxin 0.125 MG TABLET PO SCH (09:18)
[2017-01-15] MEDS: Acetaminophen 325 MG TABLET PO PRN (09:25)
[2017-01-15] MEDS: Insulin NPH/REG 70/30 100 UNIT/ML (x5UNIT) SQ SCH (09:25)
[2017-01-15 10:58] VITALS: BP 100/63
--- NOTE | 2017-01-15 12:27 | Discharge Summary ---
Date of Encounter: 01/15/17 Time of Encounter: 12:22 - Discharge Diagnosis (1) Acute exacerbation of CHF (congestive heart failure) Priority: Primary Status: Acute Qualifiers: Congestive heart failure type: combined Qualified Code(s): I50.43 - Acute on chronic combined systolic (congestive) and diastolic (congestive) heart failure (2) Hypokalemia Priority: Secondary Status: Resolved (3) Diabetes Priority: Secondary Status: Chronic Qualifiers: Diabetes mellitus type: type 2 Diabetes mellitus complication status: without complication Diabetes mellitus rat exterminator insulin use: with rat exterminator use Qualified Code(s): E11.9 - Type 2 diabetes mellitus without complications ; Z79.4 - alf (current) use of insulin (4) Hypertension Priority: Secondary Status: Chronic Qualifiers: Hypertension type: essential hypertension Qualified Code(s): I10 - Essential (primary) hypertension (5) Atrial fibrillation Priority: Secondary Status: Chronic Qualifiers: Atrial fibrillation type: permanent Qualified Code(s): I48.2 - Chronic atrial fibrillation (6) CAD (coronary artery disease) Priority: Secondary Status: Chronic Qualifiers: Coronary Disease-Associated Artery/Lesion type: bypass graft [place] vs. transplanted heart: [place] heart Associated angina: without angina Qualified Code(s): I25.810 - Atherosclerosis of coronary artery bypass graft(s) without angina pectoris (7) DVT prophylaxis Priority: Secondary Status: Acute - Discharge Medications Home Medications: Aspirin [Adult Low Dose Aspirin EC] 81 mg PO QAM 10/02/15 [History] Atorvastatin [Lipitor] 40 mg PO QPM 10/02/15 [History] Benzonatate [Tessalon] 100 mg PO TID PRN 10/02/15 [History] Calcium Carbonate/Vitamin D3 [Calcium 600 + Vit D Tablet] 2 each PO QAM [History] Cholecalciferol (Vitamin D3) [Vitamin D3] 1,000 unit PO BID 10/02/15 [History] Diazepam [Valium] 10 mg PO BID PRN 10/02/15 [History] Digoxin [Lanoxin] 0.125 mg PO QAM 10/02/15 [History] Furosemide [Lasix] 80 mg PO BID 10/02/15 [History] Levothyroxine [Synthroid] 150 mcg PO QAM 10/02/15 [History] Loratadine [Claritin] 10 mg PO QAM 10/02/15 [History] Nitroglycerin [Nitrostat] 0.4 mg SL Q5M PRN 10/02/15 [History] Omeprazole [PriLOSEC] 40 mg PO BID 10/02/15 [History] Potassium Chloride [K-Tab ER] 20 meq PO BID 10/02/15 [History] Warfarin [Coumadin] 2.5 mg PO DAILY 10/02/15 [History] Spironolactone [Aldactone] 25 mg PO QPM 08/06/16 [History] Carvedilol 3.125 mg PO BID 01/12/17 [History] Insulin Lispro Protamin/Lispro [Humalog Mix 75-25 Vial] 14 unit SQ QPM 01/12/17 [History] Insulin Lispro Protamin/Lispro [Humalog Mix 75-25 Vial] 20 unit SQ QAM 01/12/17 [History] Tramadol HCl [Ultram] 50 mg PO Q6H PRN 01/12/17 [History] Allergies/Adverse Reactions: Allergies metoprolol Allergy (Verified 01/12/17 15:24) Anaphylaxis Oxycodone [From Percocet] Adverse Reaction (Intermediate, Verified 01/13/17 13: 18) See Comments Severe Constipation dye Allergy (Uncoded 10/02/15 11:44) Anaphylaxis vicodin Adverse Reaction (Intermediate, Uncoded 01/13/17 13:18) See Comments Severe Constipation Date of admission: 01/13/17 16:36 Primary care physician: Ary Aponte Consults: 01/14/17 11:29 Consult to Physical Therapy [CONS] Stat Comment: Evaluate, develop and implement POC Discharging clinician: Magaly Johnson Anticipated date of discharge: 01/15/17 - Patient Status Disposition: Home, Self-Care Condition: Good Functional capacity at discharge: uses cane/walker Overall status at discharge: patient is back to baseline - Discharge Instructions Follow Up With: Ary Aponte MD [Primary Care Provider] - 01/20/17 3:15 pm () Additional Instructions: Please follow up with your primary care physician and event marketing intern within one week after your discharge from the hospital. Please continue to take Lasix 80mg twice a day after your discharge from the hospital. please resume all other home medications as prescribed by your primary care physician. - Diet and Activity Activity: wear oxygen at all times Diet: diabetic diet, low salt diet Hospital course: Ms. Mosley is an 81 year old female with past medical history of CHF on LTOT, hypertension, hyperlipidemia, type 2 diabetes, CKD stage III, CAD, A. fib on anticoagulation who was admitted for acute respiratory failure secondary to CHF decompensation. Patient was started on IV diuretic support and continuous oxygen therapy. Patient responded appropriately to therapy and is currently at baseline respiratory status. Pt reports of taking Lasix 40 mg twice a day at home however her listed home dose is 80 mg twice a day. Patient is asked to continue with the recommended home dose of Lasix. She also reports of not having a portable home oxygen tank at home due to which she has been having difficulties with wearing continuous oxygen at home. psychiatric social worker supervisor was consulted and arrangements are to be made prior to discharge for portable home oxygen. At this time she is hemodynamically stable, respiratory status at baseline, saturating well on nasal cannula. She will be discharged to home with follow-up with her primary care physician and event marketing intern. - Time Spent with Patient Total time spent providing and/or coordinating discharge services: Greater than 30 minutes - Constitutional Vitals: Temp Pulse Resp BP Pulse Ox 97.6 F 89 18 100/63 95 01/15/17 10:57 01/15/17 10:57 01/15/17 10:57 01/15/17 10:57 01/15/17 10:57 General appearance: Present: cooperative, A&O X 3, pleasant, no acute distress, answers questions appropriately - Head Head exam: Present: atraumatic, normocephalic - Eye Eye exam: Present: normal appearance, conjuntiva pink, sclera anicteric - Respiratory Respiratory exam: Present: CTAB. Absent: accessory muscle use, rales, rhonchi, wheezes - Cardiovascular Cardiovascular exam: Present: RRR, +S1, +S2. Absent: diastolic murmur, gallop, rubs, systolic murmur - GI/Abdominal GI/Abdominal exam: Present: normal bowel sounds, soft, no peritoneal signs. Absent: distended, tenderness - Extremities Exam Extremities exam: Present: pedal edema, warm, radial pulses palpable and symetrical. Absent: calf tenderness - Neurological Exam Neurological exam: Present: alert, oriented X3 - Psychiatric Psychiatric exam: Present: normal affect, normal mood
== END 2017-01-15 14:43 | disposition home or self-care (01) | DRG 291 ==
LOC: 2ANU 15:14 → EMEROO 15:14 → 2ANU 20:43
PROVIDERS: ADMIT Family Medicine; ATTEND Internal Medicine

== ENCOUNTER 2017-02-16 13:54 | Inpatient (IN) ==
--- NOTE | 2017-02-16 14:30 | Emergency Department Note ---
Disposition Clinical Impression: Cardiac enzymes elevated Dysphagia Qualifiers: Dysphagia type: unspecified Qualified Code(s): R13.10 - Dysphagia, unspecified Disposition: Admitted As Inpatient Condition: Fair Referrals: Ary Aponte MD [Primary Care Provider] - Forms: Work/School Release, ED Satisfaction Letter Time of Disposition: 15:31 Chest Pain HPI - General Chief Complaint: ED Abdominal Pain Stated Complaint: Trouble Swollowing Time Seen by Provider: 02/16/17 14:23 Source: patient, family Mode of arrival: wheelchair Limitations: no limitations Vital Signs Reviewed: Yes Nursing Notes Reviewed: Yes - History of Present Illness HPI Narrative: 81-year-old with a 4 day history of pain in her mid chest when she swallows states she cannot get anything down and not able to eat or drink. Patient was seen by cardiology whose concern was that she is dehydrated will likely require admission for IV fluids at the scene for endoscopy. She states she's had a 21 pound weight loss since symptoms started. Previous echocardiogram done March 2016 shows an EF of 25%. Pt complaint: chest pain Onset (ago): Just [employer] SU[employer] Duration: intermittent Onset: after eating Pain Location: substernal, left chest Severity scale (1-10): 5 Quality: tightness, aching Pain Radiation: none Improves with: nothing Treatments prior to arrival chest pain: none - Related Data Home Medications Medication Instructions Recorded Confirmed Aspirin [Adult Low Dose Aspirin EC] 81 mg PO QAM 10/02/15 01/12/17 Atorvastatin [Lipitor] 40 mg PO QPM 10/02/15 01/12/17 Benzonatate [Tessalon] 100 mg PO TID PRN 10/02/15 01/12/17 Calcium Carbonate/Vitamin D3 2 each PO QAM 10/02/15 01/12/17 [Calcium 600 + Vit D Tablet] Cholecalciferol (Vitamin D3) 1,000 unit PO BID 10/02/15 01/12/17 [Vitamin D3] Digoxin [Lanoxin] 0.125 mg PO QAM 10/02/15 01/12/17 Furosemide [Lasix] 80 mg PO BID 10/02/15 01/12/17 Levothyroxine [Synthroid] 150 mcg PO QAM 10/02/15 01/12/17 Loratadine [Claritin] 10 mg PO QAM 10/02/15 01/12/17 Nitroglycerin [Nitrostat] 0.4 mg SL Q5M PRN 10/02/15 01/12/17 Omeprazole [PriLOSEC] 40 mg PO BID 10/02/15 01/12/17 Potassium Chloride [K-Tab ER] 20 meq PO BID 10/02/15 01/12/17 Warfarin [Coumadin] 2.5 mg PO DAILY 10/02/15 01/12/17 diazePAM [Valium] 10 mg PO BID PRN 10/02/15 01/12/17 Spironolactone [Aldactone] 25 mg PO QPM 08/06/16 01/12/17 Carvedilol 3.125 mg PO BID 01/12/17 01/12/17 Insulin Lispro Protamin/Lispro 14 unit SQ QPM 01/12/17 01/12/17 [Humalog Mix 75-25 Vial] Insulin Lispro Protamin/Lispro 20 unit SQ QAM 01/12/17 01/12/17 [Humalog Mix 75-25 Vial] Tramadol HCl [Ultram] 50 mg PO Q6H PRN 01/12/17 01/12/17 Allergies Allergy/AdvReac Type Severity Reaction Status Date / Time metoprolol Allergy Anaphylaxis Verified 02/16/17 14:03 Oxycodone [From Percocet] AdvReac Intermediate See Verified 02/16/17 14:03 Comments dye Allergy Anaphylaxis Uncoded 10/02/15 11:44 vicodin AdvReac Intermediate See Uncoded 01/13/17 13:18 Comments All systems ED: reviewed and negative except as stated. Constitutional: Denies: fever, chills, weakness, weight change Eyes: Denies: eye pain, eye discharge, vision change ENT ED: Denies: ear pain, throat pain, dental pain, hearing loss, epistaxis, congestion, dysphagia Cardiovascular: Reports: chest pain. Denies: palpitations, dyspnea on exertion , edema, syncope Respiratory: Denies: cough, dyspnea, wheezes, hemoptysis, stridor Gastrointestinal: Reports: other (Dysphagia). Denies: abdominal pain, nausea, vomiting, diarrhea, constipation, hematemesis, melena, hematochezia Genitourinary: Denies: dysuria, frequency, hematuria, discharge Musculoskeletal: Denies: back pain, neck pain, arthralgia, myalgia Integumentary: Denies: rash, abrasion, lesions Neurological: Denies: headache, weakness, numbness, paresthesias, confusion, abnormal gait, vertigo Psychiatric: Denies: anxiety, depression, suicidal thoughts, homicidal thoughts , auditory hallucinations, visual hallucinations Endocrine: Denies: fatigue Hematological/Lymphatic: Denies: easy bleeding, easy bruising Allergic/Immunologic: Denies: facial swelling, urticaria Chest Pain PMH - Past Medical History Medical history: Reports: arthritis, atrial fibrillation, cancer, cardiomyopathy , CHF, coronary artery disease, CVA, diabetes, GERD, hyperlipidemia, hypertension, malignancy, osteoporosis, renal disease, thyroid disease, TIA, valvular heart disease, other Surgical history: Reports: cancer surgery, coronary bypass (CABG), pacemaker/ AICD, other, AICD, pacemaker Psychiatric history: Reports: no psych history 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 - Social History Smoking Status: Former smoker Alcohol use: Reports: none Drug use: Reports: none Physical Exam - General Limitations: no limitations General appearance: alert, in no apparent distress - Head Head exam: atraumatic, normocephalic, normal inspection - Eye Eye exam: Present: normal appearance, PERRL, EOMI - ENT ENT exam: normal exam, normal oropharynx, mucous membranes moist - Neck Neck exam: Present: normal inspection, full ROM, trachea midline - Chest Chest inspection: Present: normal inspection, symmetric chest wall rise - Respiratory Respiratory exam: Present: normal lung sounds bilaterally - Cardiovascular Cardiovascular exam: Present: regular rate, normal rhythm, normal heart sounds - Abdominal Exam Abdominal exam: Present: soft, Non-Tender. Absent: tenderness, distention, guarding, rebound, rigidity - Extremities Exam Extremities exam: Present: normal inspection, full ROM. Absent: tenderness, pedal edema - Expanded Lower Extremity Exam Neurovascular/Tendon exam: Absent: motor deficit, sensory deficit, tendon deficit Gait: observed and normal - Back Exam Back exam: Present: normal inspection, full ROM. Absent: tenderness - Neurological Exam Neurological exam: Present: alert, oriented X3 - Psychiatric Psychiatric exam: Present: normal affect, normal mood - Skin Skin exam: Present: warm, dry, intact, normal color Course - Reevaluation(s) Reevaluation #1: This is an 81-year-old had difficulty swallowing for 4 days. Was seen by cardiology who felt she should be admitted for inability to eat or drink. Workup here in emergency department does show slight elevation in her troponin 0.05. Case was discussed with the endoscopy did come in and see the patient and will evaluate for the dysphasia. I discussed case with the hospitalist who will admit the patient aced on the positive troponin. Time: 16:35 - Consultations Consultation #1: Discussed with Dr. Wong, he requests that we have the hospitalist call him after the patient's admitted. Time: 15:30 Consultation #2: Discussed with , admit. Time: 16:35 Vital Signs Temperature 97.4 F L 02/16/17 14:03 Pulse Rate 107 02/16/17 14:03 Respiratory Rate 16 02/16/17 14:03 Blood Pressure 110/73 02/16/17 14:03 O2 Sat by Pulse Oximetry 95 02/16/17 14:03 Temperature 97.4 F L 02/16/17 14:03 Pulse Rate 92 02/16/17 15:38 Respiratory Rate 16 02/16/17 15:38 Blood Pressure 101/76 02/16/17 15:38 O2 Sat by Pulse Oximetry 97 02/16/17 15:38 Oxygen Delivery Oxygen Delivery Room Air Chest Pain - Lab Data Result diagrams: 02/16/17 14:40 02/16/17 14:40 Lab Results 02/16/17 02/16/17 02/16/17 Range/Units 14:40 14:40 14:40 WBC (4.3-11.1) K/mcL RBC (3.82-4.97) M/mcL Hgb (11.5-15.4) g/dL Hct (35.3-44.9) % MCV (83.0-100.0) fL MCH (28.0-33.3) pg MCHC (31.6-35.5) g/dL RDW (11.5-14.5) % Plt Count (140-400) K/mcL MPV (9.4-12.4) fL Immature Gran % (0-4) % Seg Neutrophils % % Lymphocytes % % Monocytes % % Eosinophils % % Basophils % % Neutrophils # (1.6-8.9) K/mcL Lymphocytes # (0.6-4.6) K/mcL Monocytes # (0.0-1.3) K/mcL Eosinophils # (0.0-0.6) K/mcL Basophils # (0.0-0.2) K/mcL Platelet Estimate (Normal) Immature Plt Fraction (1.1-6.1) % Polychromasia (Not Present) Anisocytosis (Not Present) Microcytosis (Not Present) PT 22.6 H (9.4-12.1) Seconds INR 2.1 APTT 33.4 (26.0-36.0) Seconds Sodium (136-145) mEq/L Potassium (3.5-4.5) mEq/L Chloride (98-109) mEq/L Carbon Dioxide (19-29) mEq/L BUN (7-20) mg/dL Creatinine (0.57-1.11) mg/dL Est GFR ( Amer) (> 60) Est GFR (Non-Af Amer) (> 60) BUN/Creatinine Ratio (6-26) Glucose (70-99) mg/dL POC Glucose (58-89) Calculated Osmolality (280-300) Calcium (8.6-10.8) mg/dL Total Bilirubin 1.2 (0.2-1.2) mg/dL Direct Bilirubin 0.6 H (0.0-0.5) mg/dL Indirect Bilirubin 0.6 (0.0-1.2) mg/dL AST 32 (5-34) Units/L ALT 13 (0-55) Units/L Alkaline Phosphatase 130 H (38-126) Units/L Troponin I (0-0.03) ng/mL B-Natriuretic Peptide 866 H (0-100) pg/mL Serum Total Protein 8.7 H (6.0-8.3) g/dL Albumin 4.3 (3.5-5.0) g/dL Globulin 4.4 H (2.4-3.5) g/dL Albumin/Globulin Ratio 1.0 L (1.1-2.2) Amylase 87 (25-125) Units/L Lipase 33 (8-78) Units/L 02/16/17 02/16/17 02/16/17 Range/Units 14:40 14:40 14:40 WBC 10.7 (4.3-11.1) K/mcL RBC 6.35 H (3.82-4.97) M/mcL Hgb 14.1 (11.5-15.4) g/dL Hct 44.8 (35.3-44.9) % MCV 70.6 L (83.0-100.0) fL MCH 22.2 L (28.0-33.3) pg MCHC 31.5 L (31.6-35.5) g/dL RDW 25.2 H (11.5-14.5) % Plt Count 243 (140-400) K/mcL MPV 9.8 (9.4-12.4) fL Immature Gran % 0.2 (0-4) % Seg Neutrophils % 73.8 % Lymphocytes % 17.7 % Monocytes % 7.7 % Eosinophils % 0.3 % Basophils % 0.3 % Neutrophils # 7.9 (1.6-8.9) K/mcL Lymphocytes # 1.9 (0.6-4.6) K/mcL Monocytes # 0.8 (0.0-1.3) K/mcL Eosinophils # 0.0 (0.0-0.6) K/mcL Basophils # 0.0 (0.0-0.2) K/mcL Platelet Estimate Normal (Normal) Immature Plt Fraction 7.5 H (1.1-6.1) % Polychromasia 1+ A (Not Present) Anisocytosis 2+ A (Not Present) Microcytosis Present A (Not Present) PT (9.4-12.1) Seconds INR APTT (26.0-36.0) Seconds Sodium 137 (136-145) mEq/L Potassium 3.1 L (3.5-4.5) mEq/L Chloride 97 L (98-109) mEq/L Carbon Dioxide 26 (19-29) mEq/L BUN 32 H (7-20) mg/dL Creatinine 0.85 (0.57-1.11) mg/dL Est GFR ( Amer) > 60 (> 60) Est GFR (Non-Af Amer) > 60 (> 60) BUN/Creatinine Ratio 38 H (6-26) Glucose 121 H (70-99) mg/dL POC Glucose (58-89) Calculated Osmolality 292 (280-300) Calcium 10.3 (8.6-10.8) mg/dL Total Bilirubin (0.2-1.2) mg/dL Direct Bilirubin (0.0-0.5) mg/dL Indirect Bilirubin (0.0-1.2) mg/dL AST (5-34) Units/L ALT (0-55) Units/L Alkaline Phosphatase (38-126) Units/L Troponin I 0.05 H* (0-0.03) ng/mL B-Natriuretic Peptide (0-100) pg/mL Serum Total Protein (6.0-8.3) g/dL Albumin (3.5-5.0) g/dL Globulin (2.4-3.5) g/dL Albumin/Globulin Ratio (1.1-2.2) Amylase (25-125) Units/L Lipase (8-78) Units/L 05/30/17 Range/Units 15:57 WBC (4.3-11.1) K/mcL RBC (3.82-4.97) M/mcL Hgb (11.5-15.4) g/dL Hct (35.3-44.9) % MCV (83.0-100.0) fL MCH (28.0-33.3) pg MCHC (31.6-35.5) g/dL RDW (11.5-14.5) % Plt Count (140-400) K/mcL MPV (9.4-12.4) fL Immature Gran % (0-4) % Seg Neutrophils % % Lymphocytes % % Monocytes % % Eosinophils % % Basophils % % Neutrophils # (1.6-8.9) K/mcL Lymphocytes # (0.6-4.6) K/mcL Monocytes # (0.0-1.3) K/mcL Eosinophils # (0.0-0.6) K/mcL Basophils # (0.0-0.2) K/mcL Platelet Estimate (Normal) Immature Plt Fraction (1.1-6.1) % Polychromasia (Not Present) Anisocytosis (Not Present) Microcytosis (Not Present) PT (9.4-12.1) Seconds INR APTT (26.0-36.0) Seconds Sodium (136-145) mEq/L Potassium (3.5-4.5) mEq/L Chloride (98-109) mEq/L Carbon Dioxide (19-29) mEq/L BUN (7-20) mg/dL Creatinine (0.57-1.11) mg/dL Est GFR ( Amer) (> 60) Est GFR (Non-Af Amer) (> 60) BUN/Creatinine Ratio (6-26) Glucose (70-99) mg/dL POC Glucose 103 H (58-89) Calculated Osmolality (280-300) Calcium (8.6-10.8) mg/dL Total Bilirubin (0.2-1.2) mg/dL Direct Bilirubin (0.0-0.5) mg/dL Indirect Bilirubin (0.0-1.2) mg/dL AST (5-34) Units/L ALT (0-55) Units/L Alkaline Phosphatase (38-126) Units/L Troponin I (0-0.03) ng/mL B-Natriuretic Peptide (0-100) pg/mL Serum Total Protein (6.0-8.3) g/dL Albumin (3.5-5.0) g/dL Globulin (2.4-3.5) g/dL Albumin/Globulin Ratio (1.1-2.2) Amylase (25-125) Units/L Lipase (8-78) Units/L Heart Score - Score History: Slightly Suspicious EKG: Normal Age: Greater than 65 Risk Factors: Equal/Greater than 3 risk factor or history of atherosclerotic disease Troponin: 1-3x normal limit HEART Score Total: 5
[2017-02-16 14:47] LABS: Basophils % 0.3 %; Mean Corpuscular Volume 70.6 fL (83.0-100.0); Red Cell Distribution Width 25.2 % (11.5-14.5)
[2017-02-16 14:49] LABS: Eosinophils % 0.3 %; Hematocrit 44.8 % (35.3-44.9); Hemoglobin 14.1 g/dL (11.5-15.4); Immature Granulocytes % 0.2 % (0-4); Immature Platelets 7.5 % (1.1-6.1); Lymphocytes # 1.9 K/mcL (0.6-4.6); Lymphocytes % 17.7 %; Mean Corpuscular HGB Conc 31.5 g/dL (31.6-35.5); Mean Corpuscular Hemoglobin 22.2 pg (28.0-33.3); Mean Platelet Volume 9.8 fL (9.4-12.4); Monocytes # 0.8 K/mcL (0.0-1.3); Monocytes % 7.7 %; Neutrophils # 7.9 K/mcL (1.6-8.9); Platelet Count 243 K/mcL (140-400); Red Blood Count 6.35 M/mcL (3.82-4.97); Segmented Neutrophils % 73.8 %
[2017-02-16 15:01] LABS: INR 2.1; Prothrombin Time 22.6 Seconds (9.4-12.1)
[2017-02-16 15:03] LABS: Activated Partial Thrombo Time 33.4 Seconds (26.0-36.0)
[2017-02-16 15:04] LABS: Albumin 4.3 g/dL (3.5-5.0); Bilirubin,Direct 0.6 mg/dL (0.0-0.5); Bilirubin,Indirect 0.6 mg/dL (0.0-1.2); Bilirubin,Total 1.2 mg/dL (0.2-1.2); Globulin 4.4 g/dL (2.4-3.5); Total Protein 8.7 g/dL (6.0-8.3)
[2017-02-16 15:19] LABS: Anisocytosis 2+ (Not Present); Microcytosis Present (Not Present); Polychromasia 1+ (Not Present)
[2017-02-16 15:20] LABS: Platelet Estimate Normal (Normal)
[2017-02-16] MEDS ORDERED: *HR* Morphine 2 MG/ML SYRINGE IVP ONE (15:41)
[2017-02-16] MEDS ORDERED: Ondansetron 4 MG/2 ML VIAL IVP ONE (15:41)
[2017-02-16] MEDS ORDERED: *HR* Dextrose 25% in Water (Syg) 10 ML SYRINGE IVP ONE (16:04)
[2017-02-16 16:06] LABS: BUN/Creatinine Ratio 38 (6-26); Blood Urea Nitrogen 32 mg/dL (7-20); Calcium 10.3 mg/dL (8.6-10.8); Carbon Dioxide 26 mEq/L (19-29); Chloride 97 mEq/L (98-109); Glucose 121 mg/dL (70-99); Osmolality,Calculated 292 (280-300); Potassium 3.1 mEq/L (3.5-4.5); Sodium 137 mEq/L (136-145); eGFR For African Americans > 60 (> 60); eGFR For Non-African Americans > 60 (> 60)
--- NOTE | 2017-02-16 16:49 | General Surgery Consult Note ---
Date of Encounter: 02/16/17 Time of Encounter: 16:05 History of Present Illness Consult date: 02/16/17 Requesting physician: Sim Savage History of present illness: 81-year-old female referred GI Services for possible endoscopic evaluation of complaints of dysphagia. Accompanying that dysphagia the patient is complaining of chest pain for the last 4 days. Currently was seen in the cardiology office this earlier today and sent to the ER for further evaluation and subsequent admission. The patient describes intermittent difficulty swallowing her medications and here in the emergency department was unable to drink a glass of water. It was these findings that prompted the referral for possible upper endoscopy. Past medical history is notable for recent hospitalization for acute on chronic combined systolic and diastolic congestive heart failure; hypothyroidism; hypertension; hyperlipidemia; type 2 diabetes mellitus; CKD-3; CAD with history of prior acute DC; status post CABG; history of TIA/stroke; chronic atrial fibrillation for which the patient is chronically anticoagulated; ischemic cardiomyopathy with left ventricular ejection fraction less than 25%; history of AICD, pacer; poly-valvular disease (severe MR); long-standing gastroesophageal reflux disease; osteoarthritis; vitamin D deficiency;Chronic anemia likely due to an anemia of chronic disease related to the kidney failure and multiple other medical comorbidities. Records of the patient's recent hospitalization, 01/12/17, described progressive difficulty breathing, 10 pound weight gain With normal troponins at 0.02. Current laboratories: White count 10.7, hemoglobin 14.1, hematocrit 44.8, platelet count 243,000. PT 22.6, INR 2.1. Electrolytes notable for potassium of 3.1 BUN of 32, creatinine 32 with estimated GFR remaining greater than 60. Troponin elevation at 0.05 is also noted. Allergies: Toprol, IV contrast, Percocet and Vicodin Medications: The current medication list was reviewed with the patient and is enumerated enumerated in this document. Social history: Patient is a former smoker; the patient denies any current tobacco, alcohol or illicit drug use. Physical examination: Elderly female, age-appropriate, in no acute distress resting comfortably in her ED bed Skin is warm, without obvious jaundice The patient is afebrile at 97.4, pulse is variable from 90-107; respiratory rate is unlabored 16 breaths per minute; blood pressure also labile from 101/76- 130/78. EKG shows a paced irregular rhythm. Lungs: Clear to auscultation, no obvious abdominal pain with deep inspiration Cardiac: Irregularly irregular; no obvious murmurs (despite history of severe MR) Abdomen: Soft, nondistended, with no obvious intra-abdominal masses. No rebound. Bowel sounds present. Impression: 81-year-old female complaining of chest pain and dysphagia. Patient has a significant past medical history of cardiac disease but the complaints of dysphagia are "new". The patient describes difficulty swallowing for the last 4 days with intermittent inability to swallow her meds and intermittent regurgitation. The patient's complaints of chest pain may be esophageal in origin however I cannot completely exclude a cardiac etiology. An EGD has been discussed. Risks include hemorrhage, infection, aspiration, cramping abdominal pain, bloating, and esophageal perforation. The stress of the procedure may also surveyed any underlying cardiac etiology for the patient symptoms. The patient expressed understanding and was willing to proceed. Endoscopy team has been notified. We will proceed with EGD to assess the esophagus, stomach, and duodenum using IV meds. Patient is anticoagulated, I do not anticipate any biopsies at this time. Past Med Surg Social Fam HX - Past Medical History Medical history: arthritis, atrial fibrillation, cancer, cardiomyopathy, CHF, coronary artery disease, CVA, diabetes, GERD, hyperlipidemia, hypertension, malignancy, osteoporosis, renal disease, thyroid disease, TIA, valvular heart disease, other Psychiatric history: no psych history - Past Surgical History Surgical History: cancer surgery, coronary bypass (CABG), pacemaker/AICD, other , AICD, pacemaker - Social History Smoking Status: Former smoker Smokeless Tobacco Status: No Alcohol use: none Drug use: none - Family History Mother Living Status: Hx Family Cardiac Disorders: Yes Hx Family Endocrine Disorder: Yes (DM) Father Living Status: Hx Family Cardiac Disorders: Yes Hx Family Endocrine Disorder: Yes (DM) Medications and Allergies Aspirin [Adult Low Dose Aspirin EC] 81 mg PO QAM 10/02/15 [History] Atorvastatin [Lipitor] 40 mg PO QPM 10/02/15 [History] Benzonatate [Tessalon] 100 mg PO TID PRN 10/02/15 [History] Calcium Carbonate/Vitamin D3 [Calcium 600 + Vit D Tablet] 2 each PO QAM [History] Cholecalciferol (Vitamin D3) [Vitamin D3] 1,000 unit PO BID 10/02/15 [History] Digoxin [Lanoxin] 0.125 mg PO QAM 10/02/15 [History] Furosemide [Lasix] 80 mg PO BID 10/02/15 [History] Levothyroxine [Synthroid] 150 mcg PO QAM 10/02/15 [History] Loratadine [Claritin] 10 mg PO QAM 10/02/15 [History] Nitroglycerin [Nitrostat] 0.4 mg SL Q5M PRN 10/02/15 [History] Omeprazole [PriLOSEC] 40 mg PO BID 10/02/15 [History] Potassium Chloride [K-Tab ER] 20 meq PO BID 10/02/15 [History] Warfarin [Coumadin] 2.5 mg PO DAILY 10/02/15 [History] diazePAM [Valium] 10 mg PO BID PRN 10/02/15 [History] Spironolactone [Aldactone] 25 mg PO QPM 08/06/16 [History] Carvedilol 3.125 mg PO BID 01/12/17 [History] Insulin Lispro Protamin/Lispro [Humalog Mix 75-25 Vial] 14 unit SQ QPM 01/12/17 [History] Insulin Lispro Protamin/Lispro [Humalog Mix 75-25 Vial] 20 unit SQ QAM 01/12/17 [History] Tramadol HCl [Ultram] 50 mg PO Q6H PRN 01/12/17 [History] Allergies metoprolol Allergy (Verified 02/16/17 14:03) Anaphylaxis Oxycodone [From Percocet] Adverse Reaction (Intermediate, Verified 02/16/17 14: 03) See Comments Severe Constipation dye Allergy (Uncoded 10/02/15 11:44) Anaphylaxis vicodin Adverse Reaction (Intermediate, Uncoded 01/13/17 13:18) See Comments Severe Constipation Review of Systems All systems PM: A 10-system review of systems was performed and is negative for pertinent findings except as documented above in the HPI. General Surgery Exam Initial Vital Signs Temp Pulse Resp BP Pulse Ox 97.4 F L 107 16 110/73 95 02/16/17 14:03 02/16/17 14:03 02/16/17 14:03 02/16/17 14:03 02/16/17 14:03 Exam Initial Vital Signs Temp Pulse Resp BP Pulse Ox 97.4 F L 107 16 110/73 95 02/16/17 14:03 02/16/17 14:03 02/16/17 14:03 02/16/17 14:03 02/16/17 14:03 Results - Labs 02/16/17 14:40 02/16/17 14:40 Abnormal lab results RBC 6.35 M/mcL (3.82-4.97) H 02/16/17 14:40 MCV 70.6 fL (83.0-100.0) L 02/16/17 14:40 MCH 22.2 pg (28.0-33.3) L 02/16/17 14:40 MCHC 31.5 g/dL (31.6-35.5) L 02/16/17 14:40 RDW 25.2 % (11.5-14.5) H 02/16/17 14:40 Immature Plt Fraction 7.5 % (1.1-6.1) H 02/16/17 14:40 Polychromasia 1+ (Not Present) A 02/16/17 14:40 Anisocytosis 2+ (Not Present) A 02/16/17 14:40 Microcytosis Present (Not Present) A 02/16/17 14:40 PT 22.6 Seconds (9.4-12.1) H 02/16/17 14:40 Potassium 3.1 mEq/L (3.5-4.5) L 02/16/17 14:40 Chloride 97 mEq/L (98-109) L 02/16/17 14:40 BUN 32 mg/dL (7-20) H 02/16/17 14:40 BUN/Creatinine Ratio 38 (6-26) H 02/16/17 14:40 Glucose 121 mg/dL (70-99) H 02/16/17 14:40 POC Glucose 103 (58-89) H 02/16/17 15:57 Direct Bilirubin 0.6 mg/dL (0.0-0.5) H 02/16/17 14:40 Alkaline Phosphatase 130 Units/L (38-126) H 02/16/17 14:40 Troponin I 0.05 ng/mL (0-0.03) H* 02/16/17 14:40 B-Natriuretic Peptide 866 pg/mL (0-100) H 02/16/17 14:40 Serum Total Protein 8.7 g/dL (6.0-8.3) H 02/16/17 14:40 Globulin 4.4 g/dL (2.4-3.5) H 02/16/17 14:40 Albumin/Globulin Ratio 1.0 (1.1-2.2) L 02/16/17 14:40 Diabetes panel 02/16/17 02/16/17 Range/Units 14:40 14:40 Sodium 137 (136-145) mEq/L Potassium 3.1 L (3.5-4.5) mEq/L Chloride 97 L (98-109) mEq/L Carbon Dioxide 26 (19-29) mEq/L BUN 32 H (7-20) mg/dL Creatinine 0.85 (0.57-1.11) mg/dL Glucose 121 H (70-99) mg/dL Calcium 10.3 (8.6-10.8) mg/dL AST 32 (5-34) Units/L ALT 13 (0-55) Units/L Alkaline Phosphatase 130 H (38-126) Units/L Albumin 4.3 (3.5-5.0) g/dL Calcium panel 02/16/17 02/16/17 Range/Units 14:40 14:40 Calcium 10.3 (8.6-10.8) mg/dL Albumin 4.3 (3.5-5.0) g/dL Pituitary panel 02/16/17 Range/Units 14:40 Sodium 137 (136-145) mEq/L Potassium 3.1 L (3.5-4.5) mEq/L Chloride 97 L (98-109) mEq/L Carbon Dioxide 26 (19-29) mEq/L BUN 32 H (7-20) mg/dL Creatinine 0.85 (0.57-1.11) mg/dL Glucose 121 H (70-99) mg/dL Calcium 10.3 (8.6-10.8) mg/dL Adrenal panel 02/16/17 02/16/17 Range/Units 14:40 14:40 Sodium 137 (136-145) mEq/L Potassium 3.1 L (3.5-4.5) mEq/L Chloride 97 L (98-109) mEq/L Carbon Dioxide 26 (19-29) mEq/L BUN 32 H (7-20) mg/dL Creatinine 0.85 (0.57-1.11) mg/dL Glucose 121 H (70-99) mg/dL Calcium 10.3 (8.6-10.8) mg/dL Total Bilirubin 1.2 (0.2-1.2) mg/dL AST 32 (5-34) Units/L ALT 13 (0-55) Units/L Alkaline Phosphatase 130 H (38-126) Units/L Albumin 4.3 (3.5-5.0) g/dL All other labs normal. Consult Discharge Plan - Plan Referrals: Ary Aponte MD [Primary Care Provider] -
[2017-02-16] MEDS ORDERED: *HR* FentaNYL (PF) 100 MCG/2 ML VIAL ONE (17:21)
[2017-02-16] MEDS ORDERED: *HR* Midazolam HCl 5 MG/5 ML VIAL IVP ONE (17:21)
--- NOTE | 2017-02-16 17:21 | Pre-Sedation Evaluation ---
Pre-sedation evaluation - Pre-sedation checklist Date of procedure: 02/16/17 Procedure: EGD Recent Vitals: Last Vital Signs Temp 97.4 F L 02/16/17 14:03 Pulse 92 02/16/17 15:38 Resp 16 02/16/17 15:38 BP 101/76 02/16/17 15:38 Pulse Ox 97 02/16/17 15:38 H&P (including ROS) documented in medical record: Yes Dietary Status: unknown Airway Assessment: Patient can open mouth completely, TMJ function normal, Micrognathia (under-bite, receding chin) absent, Neck with adequate range of motion Dentition: No loose teeth or bridges Possible difficult airway: No ASA Classification *see protocol: CLASS III-Severe systemic disease Plan of Care: Pt appropriate candidate for procedure/moderate/conscious sedation , Risks/benefits of procedure/sedation discussed w/ patient/family, If not NPO; Risk of intake outweiged by necessity to perform procedure
[2017-02-16] MEDS ORDERED: Simethicone 40 MG/0.6 ML MLS IR ONE (17:26)
[2017-02-16] MEDS ORDERED: *HR* FentaNYL (PF) 100 MCG/2 ML VIAL IVP PRN (17:26)
[2017-02-16] MEDS ORDERED: Naloxone 0.4 MG/ML INJ IVP PRN (17:26)
[2017-02-16] MEDS ORDERED: 0.9 % Sodium Chloride 1,000 ML IVC SCH (17:30)
[2017-02-16] MEDS: *HR* Midazolam HCl 5 MG/5 ML VIAL IVP PRN ×2 (17:41→17:48)
--- NOTE | 2017-02-16 17:49 | Internal Med History&Physical ---
<Sara Rangel M - Last Filed: 02/16/17 21:58> Date of Encounter: 02/16/17 Time of Encounter: 17:32 Assessment and Plan (1) Dysphagia Current visit: Yes Status: Acute Patient complains of difficulty swallowing and painful swallowing over the last 4 days. Patient reports it feels like it gets jail down her esophagus and gets stuck, and then comes back up as "slime". She has pain in her mid sternum that is worse when she tries to swallow. CXR showed nothing acute. Dr. Wong consulted and performing EGD. EGD shows esophagitis. Started on protonix drip. clear liquids diet as tolerated. Speech therapy consult for swallow eval. Qualifiers: Dysphagia type: unspecified Qualified Code(s): R13.10 - Dysphagia, unspecified (2) Type 2 diabetes mellitus Current visit: Yes Status: Acute Controlled as evidenced by A1c of 6.9% on 01/12/17. Patient is having poor oral intake due to dysphagia. Check blood sugars Q6hr Sliding scale correction dose Q6hr hypoglycemic protocol. 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 Her echo on showed LVEF of 25%, severe global and segmental LV systolic dysfunction, indeterminate diastolic function, severe mitral regurg, severe pulmonary hypertension. Patient was sent home on 80mg lasix BID. She reports losing 20 lbs of weight in the last month since discharge. Her BUN is elevated and she appears dry on exam, likely due to poor oral intake. We will reduce her lasix dose, and hold zaroxolyn. Encourage PO liquids. Will plan to increase lasix back up once she is tolerating PO and is euvolemic. Qualifiers: Congestive heart failure type: combined Congestive heart failure chronicity : chronic Qualified Code(s): I50.42 - Chronic combined systolic (congestive) and diastolic (congestive) heart failure (4) Atrial fibrillation Current visit: Yes Status: Chronic Patient with history of afib, on coumadin, digoxin, carvedilol. Continue home doses of digoxin and carvedilol. PHarmacy to dose coumadin. Qualifiers: Atrial fibrillation type: permanent Qualified Code(s): I48.2 - Chronic atrial fibrillation (5) Hypokalemia Current visit: Yes Status: Acute Potassium of 3.1, will give 40mEq potassium IVPB and recheck chemistry in the morning. (6) Cardiac enzymes elevated Current visit: Yes Status: Acute Patient is complaining of mid sternal chest pain, she attributes to her difficulty swallowing. Chest pain is worse with swallowing. She was sent to ED by her plaster caster, Dr. Patton with suggestion of EGD. She does have a significant cardiac history including CAD s/p CABG, ishcemic cardiomyopathy with pacemaker and AICD, CHF, LVEF < 30%, afib on coumadin, pulmonary hypertension. Continuous compliance monitor. Trend troponins. (7) DVT prophylaxis Current visit: Yes Status: Acute anti-embolic stockings Patient on coumadin for afib, additional pharmacologic prophylaxis not indicated. Internal Medicine - H&P: HPI Chief complaint: trouble swallowing Admitted From: Emergency Dept Plans for Post Hospital Care: Home History of present illness: Ms. Mosley is a 81 year old female with hypertension, hyperlipidemia, type 2 diabetes, cardiomyopathy with pacemaker and AICD, afib on coumadin, CHF, hypothyroid, presents to the emergency department today from her plaster caster's office with complaints of trouble swallowing. She reports that fo the last 4 days, she has been unable to swallow food, liquid or medications. She states it feels like it gets group home down her esophagus, and then comes back up "like slime". Accompanying this trouble swallowing is pain in her mid sternal area, which is there all the time, but worse when she attempts to swallow. Evaluation in the ED included a CXR which showed Stable cardiac silhouette, AICD , s/p CABG, no acute cardiopulmonary disease. EKG with ventricular paced rhythm. Troponin was mildly elevated at 0.05. BNP was 866, down from previous value of 1204. She was hypokalemic with potassium of 3.1. BUN was elevated at 32. INR was therapeutic at 2.1. On exam, patient was alert and oriented, in no distress. Heart had irregular rhythm with murmur. Lungs were clear to auscultation bilaterally. Abdomen was nontender, with positive bowel sounds. There was white froth in the pharynx and oral cavity. Past Med Surg Social Fam HX - Past Medical History Medical history: arthritis, atrial fibrillation, cancer, cardiomyopathy, CHF, coronary artery disease, CVA, diabetes, GERD, hyperlipidemia, hypertension, malignancy, osteoporosis, renal disease, thyroid disease, TIA, valvular heart disease, other Psychiatric history: no psych history - Past Surgical History Surgical History: cancer surgery, coronary bypass (CABG), pacemaker/AICD, other , AICD, pacemaker - Social History Smoking Status: Former smoker Smokeless Tobacco Status: No Alcohol use: none Drug use: none - Family History Mother Living Status: Hx Family Cardiac Disorders: Yes Hx Family Endocrine Disorder: Yes (DM) Father Living Status: Hx Family Cardiac Disorders: Yes Hx Family Endocrine Disorder: Yes (DM) Internal Medicine - H&P: Meds Aspirin [Adult Low Dose Aspirin EC] 81 mg PO QAM 10/02/15 [History] Atorvastatin [Lipitor] 40 mg PO QPM 10/02/15 [History] Benzonatate [Tessalon] 100 mg PO TID PRN 10/02/15 [History] Calcium Carbonate/Vitamin D3 [Calcium 600 + Vit D Tablet] 2 each PO QAM [History] Digoxin [Lanoxin] 0.125 mg PO QAM 10/02/15 [History] Furosemide [Lasix] 80 mg PO BID 10/02/15 [History] Levothyroxine [Synthroid] 150 mcg PO QAM 10/02/15 [History] Loratadine [Claritin] 10 mg PO QAM 10/02/15 [History] Nitroglycerin [Nitrostat] 0.4 mg SL Q5M PRN 10/02/15 [History] Omeprazole [PriLOSEC] 40 mg PO BID 10/02/15 [History] Potassium Chloride [K-Tab ER] 20 meq PO 5XD 10/02/15 [History] Warfarin [Coumadin] 2.5 mg PO DAILY 10/02/15 [History] diazePAM [Valium] 10 mg PO BID PRN 10/02/15 [History] Spironolactone [Aldactone] 25 mg PO QPM 08/06/16 [History] Carvedilol 3.125 mg PO BID 01/12/17 [History] Insulin Lispro Protamin/Lispro [Humalog Mix 75-25 Vial] 14 unit SQ QPM 01/12/17 [History] Insulin Lispro Protamin/Lispro [Humalog Mix 75-25 Vial] 20 unit SQ QAM 01/12/17 [History] Tramadol HCl [Ultram] 50 mg PO Q6H PRN 01/12/17 [History] Oxygen 2 l NS AD 02/16/17 [History] metOLazone [Zaroxolyn] 2.5 mg PO Q48H 02/16/17 [History] Allergies metoprolol Allergy (Verified 02/16/17 14:03) Anaphylaxis Oxycodone [From Percocet] Adverse Reaction (Intermediate, Verified 02/16/17 14: 03) See Comments Severe Constipation fenofibrate [From Tricor] Adverse Reaction (Verified 02/16/17 16:52) Gastrointestinal Upset dye Allergy (Uncoded 10/02/15 11:44) Anaphylaxis vicodin Adverse Reaction (Intermediate, Uncoded 01/13/17 13:18) See Comments Severe Constipation All Systems PM: A 10-system review of systems was performed and is negative for pertinent findings except as documented above in the HPI. - Constitutional Constitutional: no chills, no fever(s), no night sweats - EENT Eyes: no change in vision, no discharge, no pain, no photophobia Ears: no ear discharge, no ear pain, no tinnitus Nose, mouth and throat: dry mouth, dysphagia, odynophagia, no nasal discharge, no neck pain, no sore throat - Cardiovascular Cardiovascular ROS IM: chest pain, no diaphoresis, no dyspnea, no lightheadedness, no palpitations, no syncope - Respiratory Respiratory: no cough, no dyspnea, no wheezing, no excessive phlegm production - Gastrointestinal Gastrointestinal: no abdominal pain, no diarrhea, no hematemesis, no hematochezia, no melena, no nausea, no vomiting - Genitourinary Genitourinary: no change in urinary stream, no dysuria, no flank pain, no hematuria - Musculoskeletal Musculoskeletal ROS IM: no numbness, no tingling - Integumentary Integumentary IM: no rash, no unusual bruising - Neurological Neurological ROS: no confusion, no convulsions, no focal weakness, no numbness, no tingling, no tremor(s) - Hematologic/Lymphatic Hematologic/Lymphatic: no easy bruising - Constitutional Vitals: Temp Pulse Resp BP Pulse Ox 97.4 F L 92 18 103/76 97 02/16/17 14:03 02/16/17 15:38 02/16/17 17:25 02/16/17 17:25 02/16/17 15:38 General appearance: Present: A&O X 3, pleasant, no acute distress - Head Head exam: Present: atraumatic, normocephalic - Eye Eye exam: Present: PERRL, conjuntiva pink, sclera anicteric Pupils: Present: PERRL - Neck Neck exam general surgery: Present: supple, trachea midline. Absent: lymphadenopathy - Respiratory Respiratory exam: Present: CTAB. Absent: accessory muscle use, rales, rhonchi, wheezes - Cardiovascular Cardiovascular exam: Present: diastolic murmur, irregular rhythm, +S1, +S2, systolic murmur. Absent: gallop, rubs - GI/Abdominal GI/Abdominal exam: Present: normal bowel sounds, soft, no peritoneal signs. Absent: distended, tenderness - Extremities Exam Extremities exam: Present: warm, radial pulses palpable and symetrical. Absent : calf tenderness, cyanotic, pedal edema - Neurological Exam Neurological exam: Present: CN II-XII intact, oriented X3, no focal deficits. Absent: facial droop, speech deficit - Skin Skin exam: Present: dry, intact Internal Med - H&P Results - Labs CBC & Chem 7: 02/16/17 14:40 02/16/17 14:40 Labs: All Lab Results (24 Hours) 02/16/17 02/16/17 02/16/17 Range/Units 14:40 14:40 14:40 WBC (4.3-11.1) K/mcL RBC (3.82-4.97) M/mcL Hgb (11.5-15.4) g/dL Hct (35.3-44.9) % MCV (83.0-100.0) fL MCH (28.0-33.3) pg MCHC (31.6-35.5) g/dL RDW (11.5-14.5) % Plt Count (140-400) K/mcL MPV (9.4-12.4) fL Immature Gran % (0-4) % Seg Neutrophils % % Lymphocytes % % Monocytes % % Eosinophils % % Basophils % % Neutrophils # (1.6-8.9) K/mcL Lymphocytes # (0.6-4.6) K/mcL Monocytes # (0.0-1.3) K/mcL Eosinophils # (0.0-0.6) K/mcL Basophils # (0.0-0.2) K/mcL Platelet Estimate (Normal) Immature Plt Fraction (1.1-6.1) % Polychromasia (Not Present) Anisocytosis (Not Present) Microcytosis (Not Present) PT 22.6 H (9.4-12.1) Seconds INR 2.1 APTT 33.4 (26.0-36.0) Seconds Sodium (136-145) mEq/L Potassium (3.5-4.5) mEq/L Chloride (98-109) mEq/L Carbon Dioxide (19-29) mEq/L BUN (7-20) mg/dL Creatinine (0.57-1.11) mg/dL Est GFR ( Amer) (> 60) Est GFR (Non-Af Amer) (> 60) BUN/Creatinine Ratio (6-26) Glucose (70-99) mg/dL POC Glucose (58-89) Calculated Osmolality (280-300) Calcium (8.6-10.8) mg/dL Total Bilirubin 1.2 (0.2-1.2) mg/dL Direct Bilirubin 0.6 H (0.0-0.5) mg/dL Indirect Bilirubin 0.6 (0.0-1.2) mg/dL AST 32 (5-34) Units/L ALT 13 (0-55) Units/L Alkaline Phosphatase 130 H (38-126) Units/L Troponin I (0-0.03) ng/mL B-Natriuretic Peptide 866 H (0-100) pg/mL Serum Total Protein 8.7 H (6.0-8.3) g/dL Albumin 4.3 (3.5-5.0) g/dL Globulin 4.4 H (2.4-3.5) g/dL Albumin/Globulin Ratio 1.0 L (1.1-2.2) Amylase 87 (25-125) Units/L Lipase 33 (8-78) Units/L 02/16/17 02/16/17 02/16/17 Range/Units 14:40 14:40 14:40 WBC 10.7 (4.3-11.1) K/mcL RBC 6.35 H (3.82-4.97) M/mcL Hgb 14.1 (11.5-15.4) g/dL Hct 44.8 (35.3-44.9) % MCV 70.6 L (83.0-100.0) fL MCH 22.2 L (28.0-33.3) pg MCHC 31.5 L (31.6-35.5) g/dL RDW 25.2 H (11.5-14.5) % Plt Count 243 (140-400) K/mcL MPV 9.8 (9.4-12.4) fL Immature Gran % 0.2 (0-4) % Seg Neutrophils % 73.8 % Lymphocytes % 17.7 % Monocytes % 7.7 % Eosinophils % 0.3 % Basophils % 0.3 % Neutrophils # 7.9 (1.6-8.9) K/mcL Lymphocytes # 1.9 (0.6-4.6) K/mcL Monocytes # 0.8 (0.0-1.3) K/mcL Eosinophils # 0.0 (0.0-0.6) K/mcL Basophils # 0.0 (0.0-0.2) K/mcL Platelet Estimate Normal (Normal) Immature Plt Fraction 7.5 H (1.1-6.1) % Polychromasia 1+ A (Not Present) Anisocytosis 2+ A (Not Present) Microcytosis Present A (Not Present) PT (9.4-12.1) Seconds INR APTT (26.0-36.0) Seconds Sodium 137 (136-145) mEq/L Potassium 3.1 L (3.5-4.5) mEq/L Chloride 97 L (98-109) mEq/L Carbon Dioxide 26 (19-29) mEq/L BUN 32 H (7-20) mg/dL Creatinine 0.85 (0.57-1.11) mg/dL Est GFR ( Amer) > 60 (> 60) Est GFR (Non-Af Amer) > 60 (> 60) BUN/Creatinine Ratio 38 H (6-26) Glucose 121 H (70-99) mg/dL POC Glucose (58-89) Calculated Osmolality 292 (280-300) Calcium 10.3 (8.6-10.8) mg/dL Total Bilirubin (0.2-1.2) mg/dL Direct Bilirubin (0.0-0.5) mg/dL Indirect Bilirubin (0.0-1.2) mg/dL AST (5-34) Units/L ALT (0-55) Units/L Alkaline Phosphatase (38-126) Units/L Troponin I 0.05 H* (0-0.03) ng/mL B-Natriuretic Peptide (0-100) pg/mL Serum Total Protein (6.0-8.3) g/dL Albumin (3.5-5.0) g/dL Globulin (2.4-3.5) g/dL Albumin/Globulin Ratio (1.1-2.2) Amylase (25-125) Units/L Lipase (8-78) Units/L 05/30/17 Range/Units 15:57 WBC (4.3-11.1) K/mcL RBC (3.82-4.97) M/mcL Hgb (11.5-15.4) g/dL Hct (35.3-44.9) % MCV (83.0-100.0) fL MCH (28.0-33.3) pg MCHC (31.6-35.5) g/dL RDW (11.5-14.5) % Plt Count (140-400) K/mcL MPV (9.4-12.4) fL Immature Gran % (0-4) % Seg Neutrophils % % Lymphocytes % % Monocytes % % Eosinophils % % Basophils % % Neutrophils # (1.6-8.9) K/mcL Lymphocytes # (0.6-4.6) K/mcL Monocytes # (0.0-1.3) K/mcL Eosinophils # (0.0-0.6) K/mcL Basophils # (0.0-0.2) K/mcL Platelet Estimate (Normal) Immature Plt Fraction (1.1-6.1) % Polychromasia (Not Present) Anisocytosis (Not Present) Microcytosis (Not Present) PT (9.4-12.1) Seconds INR APTT (26.0-36.0) Seconds Sodium (136-145) mEq/L Potassium (3.5-4.5) mEq/L Chloride (98-109) mEq/L Carbon Dioxide (19-29) mEq/L BUN (7-20) mg/dL Creatinine (0.57-1.11) mg/dL Est GFR ( Amer) (> 60) Est GFR (Non-Af Amer) (> 60) BUN/Creatinine Ratio (6-26) Glucose (70-99) mg/dL POC Glucose 103 H (58-89) Calculated Osmolality (280-300) Calcium (8.6-10.8) mg/dL Total Bilirubin (0.2-1.2) mg/dL Direct Bilirubin (0.0-0.5) mg/dL Indirect Bilirubin (0.0-1.2) mg/dL AST (5-34) Units/L ALT (0-55) Units/L Alkaline Phosphatase (38-126) Units/L Troponin I (0-0.03) ng/mL B-Natriuretic Peptide (0-100) pg/mL Serum Total Protein (6.0-8.3) g/dL Albumin (3.5-5.0) g/dL Globulin (2.4-3.5) g/dL Albumin/Globulin Ratio (1.1-2.2) Amylase (25-125) Units/L Lipase (8-78) Units/L - Diagnostic Studies Chest x-ray Additional comments: Chest X-Ray 02/16/17 14:27 IMPRESSION: 1. No acute cardiopulmonary disease. 2. Status post CABG. D/ / 02/16/2017 16:07:59 Humera Ying MD / [facility] Interpreting Provider: Humera Ying MD <Be Quezada - Last Filed: 02/17/17 19:37> Date of Encounter: 02/17/17 Internal Medicine - H&P: HPI History of present illness: Ms. Mosley is a 81 year old female All Systems PM: A 10-system review of systems was performed and is negative for pertinent findings except as documented above in the HPI. - Constitutional Vitals: Temp Pulse Resp BP Pulse Ox 98 F 85 18 116/67 96 02/17/17 16:31 02/17/17 16:31 02/17/17 16:31 02/17/17 16:31 02/17/17 16:31 Internal Med - H&P Results - Labs CBC & Chem 7: 02/17/17 02:44 02/17/17 02:44 Labs: Short CBC 02/17/17 Range/Units 02:44 WBC 7.1 (4.3-11.1) K/mcL Hgb 11.9 D (11.5-15.4) g/dL Hct 39.2 (35.3-44.9) % Plt Count 196 (140-400) K/mcL Neutrophils # 4.6 (1.6-8.9) K/mcL BMP 02/17/17 02:44 Sodium 137 Potassium 3.1 L Chloride 98 Carbon Dioxide 28 BUN 27 H Creatinine 0.77 Glucose 153 H Calcium 9.0 Cardiac Enzymes 02/16/17 02/17/17 02/17/17 Range/Units 20:19 02:44 09:07 Troponin I 0.06 H* 0.06 H* 0.05 H* (0-0.03) ng/mL - Attending Attestation I examined this patient and my medical decision-making was reviewed with the Resident Physician. I agree with the documented findings, disposition and treatment plan as described
[2017-02-16] MEDS ORDERED: *HR* Dextrose 50 % in Water (Syg) 50 ML SYRINGE IVP PRN (18:24)
[2017-02-16] MEDS ORDERED: Dextrose Gel 15 GM PO PRN ×2 (18:24)
[2017-02-16] MEDS ORDERED: D5% in Water 1,000 ML IVC PRN (18:24)
[2017-02-16] MEDS ORDERED: diazePAM 10 MG TABLET PO PRN (18:25)
[2017-02-16] MEDS ORDERED: Nitroglycerin 0.4 MG TAB.SUBL SL PRN (18:25)
[2017-02-16] MEDS: Furosemide 40 MG TABLET PO SCH (20:24)
[2017-02-16] MEDS: Pantoprazole 40 MG in 0.9 % Sodium Chloride Mini Bag 100 ML IVC SCH (20:24)
[2017-02-16] MEDS: Insulin LISPRO 300 UNITS/3 ML VIAL SQ SCH (20:25)
[2017-02-16] MEDS ORDERED: Potassium Chloride 40 MEQ, Lidocaine 1% 2 ML in D5% in Water 500 ML IVPB ONE (22:02)
[2017-02-16] MEDS: traMADol 50 MG TABLET PO PRN (22:35)
[2017-02-16] MEDS ORDERED: 0.9 % Sodium Chloride 500 ML ONE (23:49)
[2017-02-16] MEDS: *HR* Warfarin 2.5 MG TABLET PO SCH (23:58)
[2017-02-17] MEDS: Pantoprazole 40 MG in 0.9 % Sodium Chloride Mini Bag 100 ML IVC SCH ×5 (01:20→22:01)
[2017-02-17 04:01] LABS: Basophils % 0.4 %; Mean Corpuscular Volume 72.2 fL (83.0-100.0)
[2017-02-17 04:03] LABS: Eosinophils # 0.1 K/mcL (0.0-0.6); Hematocrit 39.2 % (35.3-44.9); Hemoglobin 11.9 g/dL (11.5-15.4); Immature Granulocytes % 0.1 % (0-4); Immature Platelets 6.4 % (1.1-6.1); Lymphocytes # 1.6 K/mcL (0.6-4.6); Mean Corpuscular HGB Conc 30.4 g/dL (31.6-35.5); Mean Corpuscular Hemoglobin 21.9 pg (28.0-33.3); Mean Platelet Volume 10.4 fL (9.4-12.4); Monocytes # 0.8 K/mcL (0.0-1.3); Monocytes % 11.1 %; Platelet Count 196 K/mcL (140-400); Red Blood Count 5.43 M/mcL (3.82-4.97); Red Cell Distribution Width 25.1 % (11.5-14.5); Segmented Neutrophils % 65.4 %
[2017-02-17 04:13] LABS: BUN/Creatinine Ratio 35 (6-26); Blood Urea Nitrogen 27 mg/dL (7-20); Carbon Dioxide 28 mEq/L (19-29); Chloride 98 mEq/L (98-109); Glucose 153 mg/dL (70-99); Osmolality,Calculated 292 (280-300); Potassium 3.1 mEq/L (3.5-4.5); Sodium 137 mEq/L (136-145); eGFR For African Americans > 60 (> 60); eGFR For Non-African Americans > 60 (> 60)
[2017-02-17 04:15] LABS: Prothrombin Time 22.1 Seconds (9.4-12.1)
[2017-02-17 04:18] LABS: Activated Partial Thrombo Time 34.5 Seconds (26.0-36.0)
[2017-02-17 04:39] LABS: Neutrophils # 4.6 K/mcL (1.6-8.9)
[2017-02-17 04:45] LABS: Anisocytosis 2+ (Not Present); Platelet Estimate Normal (Normal); Polychromasia 1+ (Not Present)
[2017-02-17] MEDS: Aspirin Enteric Coated 81 MG Tablet PO SCH (08:17)
[2017-02-17] MEDS: Insulin LISPRO 300 UNITS/3 ML VIAL SQ SCH ×4 (08:17→20:30)
[2017-02-17] MEDS: *HR* Digoxin 0.125 MG TABLET PO SCH (08:17)
[2017-02-17] MEDS: Furosemide 40 MG TABLET PO SCH ×2 (08:17→16:49)
[2017-02-17] MEDS ORDERED: Potassium Chloride 40 MEQ, Lidocaine 1% 2 ML in D5% in Water 500 ML IVPB ONE (09:58)
--- NOTE | 2017-02-17 10:03 | Internal Med Progress Note ---
<Ravindra Thomas - Last Filed: 02/17/17 14:43> Date of Encounter: 02/17/17 - Constitutional Vitals: Temp Pulse Resp BP Pulse Ox 97.6 F 92 16 123/76 97 02/17/17 11:27 02/17/17 11:27 02/17/17 11:27 02/17/17 11:27 02/17/17 11:27 Internal Medicine: Result - Labs CBC & Chem 7: 02/17/17 02:44 02/17/17 02:44 Labs: Short CBC 02/17/17 Range/Units 02:44 WBC 7.1 (4.3-11.1) K/mcL Hgb 11.9 D (11.5-15.4) g/dL Hct 39.2 (35.3-44.9) % Plt Count 196 (140-400) K/mcL Neutrophils # 4.6 (1.6-8.9) K/mcL BMP 02/17/17 02:44 Sodium 137 Potassium 3.1 L Chloride 98 Carbon Dioxide 28 BUN 27 H Creatinine 0.77 Glucose 153 H Calcium 9.0 Cardiac Enzymes 02/16/17 02/17/17 02/17/17 Range/Units 20:19 02:44 09:07 Troponin I 0.06 H* 0.06 H* 0.05 H* (0-0.03) ng/mL - ABG Interpretation ABG results: PT/INR, D-dimer PT 22.1 Seconds (9.4-12.1) H 02/17/17 02:44 Consult Discharge Plan - Plan Referrals: Ary Aponte MD [Primary Care Provider] - - Attending Attestation I examined this patient and my medical decision-making was reviewed with the FINANCIAL REPORTING SPECIALIST/PA/Advanced Practice Nurse/Resident Physician. I agree with the documented findings, disposition and treatment plan as described except to the extent set forth below. <Jon Jennings - Last Filed: 02/17/17 18:03> Date of Encounter: 02/17/17 Time of Encounter: 09:35 - Assessment and plan (1) Dysphagia Current Visit: Yes Status: Acute Assessment and plan: Patient complains of difficulty swallowing and painful swallowing over the last 4 days. Patient reports it feels like it gets detention down her esophagus and gets stuck, and then comes back up as "slime". She has pain in her mid sternum that is worse when she tries to swallow. CXR showed nothing acute. Dr. Wong consulted and performing EGD. EGD shows esophagitis. Started on protonix drip. She noted swallowing better today, but burning in chest after eating. Clear liquids diet, advanced today to Full liquids. Speech therapy consult for swallow eval, they recommended barium swallow study once esophagitis has improved/resolved. Qualifiers: Dysphagia type: unspecified Qualified Code(s): R13.10 - Dysphagia, unspecified (2) Cardiac enzymes elevated Current Visit: Yes Status: Acute Assessment and plan: Troponins flat and adynamic. Significant cardiac history including CAD s/p CABG, ishcemic cardiomyopathy with pacemaker and AICD, CHF, LVEF < 30%, afib on coumadin, pulmonary hypertension. (3) Hypokalemia Current Visit: Yes Status: Acute Assessment and plan: Potassium of 3.1>3.1, given 40mEq potassium IVPB past two days. Mg level ordered today Monitor AM labs (4) Type 2 diabetes mellitus Current Visit: Yes Status: Acute Assessment and plan: Controlled as evidenced by A1c of 6.9% on 01/12/17. Patient noted to have poor oral intake due to dysphagia. Check blood sugars ACHS Low dose sliding scale correction hypoglycemic protocol. 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 Continue home doses of digoxin and carvedilol. Pharmacy to dose coumadin. Qualifiers: Atrial fibrillation type: permanent Qualified Code(s): I48.2 - Chronic atrial fibrillation (6) Congestive heart failure Current Visit: Yes Status: Chronic Assessment and plan: Patient with recent admission for acute exacerbation of CHF. Her echo on showed LVEF of 25%, severe global and segmental LV systolic dysfunction, indeterminate diastolic function, severe mitral regurg, severe pulmonary hypertension. Patient was sent home on 80mg lasix BID. She reports losing 20 lbs of weight in the last month since discharge. Her BUN is elevated and she appears dry on exam, likely due to poor oral intake. Lasix dose decreased and zaroxolyn held. Encouraging PO liquids. Consider increasing lasix back up once she is tolerating PO and is euvolemic. Qualifiers: Congestive heart failure type: combined Congestive heart failure chronicity : chronic Qualified Code(s): I50.42 - Chronic combined systolic (congestive) and diastolic (congestive) heart failure (7) DVT prophylaxis Current Visit: Yes Status: Acute Assessment and plan: anti-embolic stockings Patient on coumadin for afib, additional pharmacologic prophylaxis not indicated. - Time Spent With Patient less than 15 minutes - Subjective Interval history: Seen and examined States swallowing better today, but burning in chest after eating. Patient states she is going to have a swallow study today. She denies shortness of breath. - Constitutional Vitals: Temp Pulse Resp BP Pulse Ox 97.6 F 90 16 114/66 97 02/17/17 08:00 02/17/17 08:00 02/17/17 08:00 02/17/17 08:00 02/17/17 08:26 General appearance: Present: cooperative, A&O X 3, pleasant, no acute distress, answers questions appropriately - Head Head exam: Present: atraumatic, normocephalic - Eye Eye exam: Present: EOMI, conjuntiva pink - ENT ENT exam: Present: mucous membranes moist - Neck Neck exam general surgery: Present: supple - Respiratory Respiratory exam: Present: decreased breath sounds, CTAB - Cardiovascular Cardiovascular exam: Present: RRR - GI/Abdominal GI/Abdominal exam: Present: soft. Absent: tenderness - Extremities Exam Extremities exam: Absent: pedal edema, tenderness - Neurological Exam Neurological exam: Present: alert, no focal deficits. Absent: speech deficit - Psychiatric Psychiatric exam: Present: normal affect, normal mood - Skin Skin exam: Present: dry, warm. Absent: rash Internal Medicine: Result - Labs CBC & Chem 7: 02/17/17 02:44 02/17/17 02:44 Labs: Short CBC 02/17/17 Range/Units 02:44 WBC 7.1 (4.3-11.1) K/mcL Hgb 11.9 D (11.5-15.4) g/dL Hct 39.2 (35.3-44.9) % Plt Count 196 (140-400) K/mcL Neutrophils # 4.6 (1.6-8.9) K/mcL BMP 02/17/17 02:44 Sodium 137 Potassium 3.1 L Chloride 98 Carbon Dioxide 28 BUN 27 H Creatinine 0.77 Glucose 153 H Calcium 9.0 Cardiac Enzymes 02/16/17 02/17/17 02/17/17 Range/Units 20:19 02:44 09:07 Troponin I 0.06 H* 0.06 H* 0.05 H* (0-0.03) ng/mL - ABG Interpretation ABG results: PT/INR, D-dimer PT 22.1 Seconds (9.4-12.1) H 02/17/17 02:44
[2017-02-17] MEDS: traMADol 50 MG TABLET PO PRN (12:24)
--- NOTE | 2017-02-17 13:00 | Electrocardiograph Report ---
[address] [address] Test Date: 2017-02-16 Pat Name: Wally Mosley Department: 105 Room: [facility] Gender: F Crumb Packer: : [id number] Requested By: Sim Savage Order Number: [id number] Reading MD: Bogdan Cerda MD Measurements Intervals [place] Rate: 79 P: 104 MD: [id number] QRS: -87 QRSD: 192 T: 93 QT: 438 QTc: 473 Interpretive Statements ELECTRONIC VENTRICULAR PACEMAKER Electronically Signed On 02-17-2017 12:58:02 EDT by Bogdan Cerda MD
--- NOTE | 2017-02-17 13:46 | General Surgery Progress Note ---
Date of Encounter: 02/17/17 Time of Encounter: 13:35 Subjective Patient reports: feels better, still having pain, tolerating liquids well Narrative: General Surgery - s/p EGD for dysphagia. Findings include severe distal esophagitis. Patient taking omeprazole 40 mg BID at home. The patient indicates that she takes the medication as directed. Despite the PPI, severe distal esophagitis was identified at the time of EGD last evening. No biopsies were obtained as the patient is chronically anti coagulated Barium swallow ordered by speech pathology deferred until the acute esophagitis can be controlled. The patient indicates that she is feeling better since admission, but shortly after consuming clear liquids she has burning pain. This hopefully, will diminish / resolve with IV Pantoprazole. Patient c/o constipation related to narcotic analgesics. Afebrile, 97.6; pulse 92, respirations 16 and unlabored; blood pressure 123/76 Lungs: Clear Cardiac: Irregularly irregular Abdomen: Soft nontender. No obvious intra-abdominal masses. Laboratories: White count 7.1; hemoglobin 11.9 with hematocrit 39.2 (diminished with IV fluids - prior H&H 14.1 and 44.8; historical data suggests that this is a hemoconcentrated value). PT 22.1, INR 2.0. Electrolytes notable for persistent hypokalemia. BUN has improved to 27, creatinine 0.77. Troponins remain elevated 0.06 and 0.05. RECOMMENDATIONS: allow full liquids change PPI and monitor response to tx delay barium swallow until acute esophagitis controlled Laxative PRN suggest fiber supplementation and stool softeners to combat constipating effects of narcotic analgesics. Objective Vital Signs - Last 8 Hours Temp Pulse Resp BP Pulse Ox 02/17/17 11:27 97.6 F 92 16 123/76 97 02/17/17 08:26 97 02/17/17 08:00 97.6 F 90 16 114/66 97 Intake and Output 02/16/17 02/17/17 02/17/17 23:59 07:59 15:59 Intake Total 300 / 300 200 / 200 400 / 400 Output Total 0 / 0 500 / 500 350 / 350 Balance 300 / 300 -300 / -300 50 / 50 Intake: IV Fluids 300 / 300 200 / 200 100 / 100 0.9 % Sodium Chloride 1, 300 / 300 000 ML @ 50 mls/hr IVC . Q20H [facility] Rx#:[id number] Protonix 40 MG In 0.9 % 200 / 200 100 / 100 Sodium Chloride (Mini-Bag +) 100 ML @ 20 mls/hr IVC .Q5H [facility] Rx#: [id number] Oral 0 / 0 0 / 0 300 / 300 Output: Urine 0 / 0 500 / 500 350 / 350 Other: Weight 50.2 kg Blood Glucose* 102 122 Patient Weight 02/17/17 23:59 Weight 50.2 kg - Labs 02/17/17 02:44 02/17/17 02:44 Diabetes panel 02/17/17 Range/Units 02:44 Sodium 137 (136-145) mEq/L Potassium 3.1 L (3.5-4.5) mEq/L Chloride 98 (98-109) mEq/L Carbon Dioxide 28 (19-29) mEq/L BUN 27 H (7-20) mg/dL Creatinine 0.77 (0.57-1.11) mg/dL Glucose 153 H (70-99) mg/dL Calcium 9.0 (8.6-10.8) mg/dL Calcium panel 02/17/17 Range/Units 02:44 Calcium 9.0 (8.6-10.8) mg/dL Pituitary panel 02/17/17 Range/Units 02:44 Sodium 137 (136-145) mEq/L Potassium 3.1 L (3.5-4.5) mEq/L Chloride 98 (98-109) mEq/L Carbon Dioxide 28 (19-29) mEq/L BUN 27 H (7-20) mg/dL Creatinine 0.77 (0.57-1.11) mg/dL Glucose 153 H (70-99) mg/dL Calcium 9.0 (8.6-10.8) mg/dL Adrenal panel 02/17/17 Range/Units 02:44 Sodium 137 (136-145) mEq/L Potassium 3.1 L (3.5-4.5) mEq/L Chloride 98 (98-109) mEq/L Carbon Dioxide 28 (19-29) mEq/L BUN 27 H (7-20) mg/dL Creatinine 0.77 (0.57-1.11) mg/dL Glucose 153 H (70-99) mg/dL Calcium 9.0 (8.6-10.8) mg/dL Consult Discharge Plan - Plan Referrals: Ary Aponte MD [Primary Care Provider] -
[2017-02-17] MEDS: *HR* Warfarin 2.5 MG TABLET PO SCH (16:49)
[2017-02-17] MEDS: Spironolactone 25 MG TABLET PO SCH (16:49)
[2017-02-17] MEDS ORDERED: Warfarin perPT PO PRN (18:00)
[2017-02-18] MEDS: Pantoprazole 40 MG in 0.9 % Sodium Chloride Mini Bag 100 ML IVC SCH ×3 (02:57→20:40)
[2017-02-18] MEDS: traMADol 50 MG TABLET PO PRN ×2 (03:14→20:42)
[2017-02-18 05:27] LABS: Basophils % 0.3 %; Eosinophils # 0.1 K/mcL (0.0-0.6); Eosinophils % 1.9 %; Hemoglobin 11.8 g/dL (11.5-15.4); Immature Granulocytes % 0.3 % (0-4); Lymphocytes # 1.3 K/mcL (0.6-4.6); Lymphocytes % 22.6 %; Mean Corpuscular HGB Conc 31.1 g/dL (31.6-35.5); Mean Corpuscular Hemoglobin 22.3 pg (28.0-33.3); Mean Corpuscular Volume 71.8 fL (83.0-100.0); Monocytes # 0.7 K/mcL (0.0-1.3); Monocytes % 11.5 %; Platelet Count 163 K/mcL (140-400); Red Blood Count 5.29 M/mcL (3.82-4.97); Red Cell Distribution Width 24.7 % (11.5-14.5); Segmented Neutrophils % 63.4 %
[2017-02-18 05:28] LABS: Neutrophils # 3.7 K/mcL (1.6-8.9)
[2017-02-18 05:32] LABS: INR 2.6; Prothrombin Time 29.2 Seconds (9.4-12.1)
[2017-02-18 05:49] LABS: BUN/Creatinine Ratio 31 (6-26); Blood Urea Nitrogen 24 mg/dL (7-20); Calcium 8.6 mg/dL (8.6-10.8); Carbon Dioxide 32 mEq/L (19-29); Chloride 96 mEq/L (98-109); Glucose 106 mg/dL (70-99); Magnesium 1.1 mg/dL (1.6-2.6); Osmolality,Calculated 286 (280-300); Potassium 2.9 mEq/L (3.5-4.5); Sodium 136 mEq/L (136-145); eGFR For African Americans > 60 (> 60); eGFR For Non-African Americans > 60 (> 60)
[2017-02-18 06:14] LABS: Anisocytosis 3+ (Not Present); Platelet Estimate Normal (Normal)
[2017-02-18 06:15] LABS: Macrocytosis Present (Not Present)
[2017-02-18] MEDS ORDERED: Potassium Chloride 40 MEQ, Lidocaine 1% 2 ML in D5% in Water 500 ML IVPB ONE (08:39)
[2017-02-18] MEDS ORDERED: Magnesium Sulfate 2 GM in D5% in Water 100 ML IVPB ONE (08:39)
--- NOTE | 2017-02-18 08:43 | Internal Med Progress Note ---
<Jon Jennings - Last Filed: 02/18/17 14:20> Date of Encounter: 02/18/17 Time of Encounter: 10:20 - Assessment and plan (1) Dysphagia Current Visit: Yes Status: Acute Assessment and plan: Patient complains of difficulty swallowing and painful swallowing over the last 4 days. Patient reports it feels like it gets skilled nursing down her esophagus and gets stuck, and then comes back up as "slime". She has pain in her mid sternum that is worse when she tries to swallow. CXR showed nothing acute. Dr. Wong consulted and performing EGD. EGD shows esophagitis. Continuing protonix drip. She noted swallowing better, but continued burning in chest after eating. Clear liquids diet, advanced today to Full liquids. Speech therapy consult for swallow eval, they recommended barium swallow study once esophagitis has improved/resolved. Qualifiers: Dysphagia type: unspecified Qualified Code(s): R13.10 - Dysphagia, unspecified (2) Cardiac enzymes elevated Current Visit: Yes Status: Acute Assessment and plan: Troponins flat and adynamic. Significant cardiac history including CAD s/p CABG, ishcemic cardiomyopathy with pacemaker and AICD, CHF, LVEF < 30%, afib on coumadin, pulmonary hypertension. (3) Hypokalemia Current Visit: Yes Status: Acute Assessment and plan: Potassium of 3.1>3.1>2.9, given 40mEq potassium IVPB daily. Mg level low at 1.1, replaced. Monitor AM labs (4) Hypomagnesemia Current Visit: Yes Status: Acute Assessment and plan: Mg low at 1.1, replaced (5) Type 2 diabetes mellitus Current Visit: Yes Status: Acute Assessment and plan: Controlled as evidenced by A1c of 6.9% on 01/12/17. Patient noted to have poor oral intake due to dysphagia. Check blood sugars ACHS Low dose sliding scale correction hypoglycemic protocol. Qualifiers: Diabetes mellitus complication status: with unspecified complications Diabetes mellitus intermediate manager insulin use: with intermediate manager use Qualified Code(s) : E11.8 - Type 2 diabetes mellitus with unspecified complications; Z79.4 - intermediate manager (current) use of insulin (6) Atrial fibrillation Current Visit: Yes Status: Chronic Assessment and plan: Patient with history of afib, on coumadin, digoxin, carvedilol. Continue home doses of digoxin and carvedilol. Pharmacy to dose coumadin. Qualifiers: Atrial fibrillation type: permanent Qualified Code(s): I48.2 - Chronic atrial fibrillation (7) Congestive heart failure Current Visit: Yes Status: Chronic Assessment and plan: Patient with recent admission for acute exacerbation of CHF. Her echo on showed LVEF of 25%, severe global and segmental LV systolic dysfunction, indeterminate diastolic function, severe mitral regurg, severe pulmonary hypertension. Patient was sent home on 80mg lasix BID. She reports losing 20 lbs of weight in the last month since discharge. Her BUN is elevated and she appeared dry on admission, likely due to poor oral intake. Lasix dose decreased and zaroxolyn held. No LE edema noted on exam. Encouraging PO liquids. Consider increasing lasix back up once she is tolerating PO and is euvolemic. Qualifiers: Congestive heart failure type: combined Congestive heart failure chronicity : chronic Qualified Code(s): I50.42 - Chronic combined systolic (congestive) and diastolic (congestive) heart failure (8) DVT prophylaxis Current Visit: Yes Status: Acute Assessment and plan: anti-embolic stockings Patient on coumadin for afib, additional pharmacologic prophylaxis not indicated. - Time Spent With Patient 25 - 35 minutes (30mins) - Subjective Interval history: Seen and examined States continued burning in chest after eating. She denies shortness of breath or any acute distress. Noted chronic NSAID use discontinued 2 weeks ago. - Constitutional Vitals: Temp Pulse Resp BP Pulse Ox 97.7 F 83 16 118/61 98 02/18/17 07:20 02/18/17 07:20 02/18/17 07:20 02/18/17 07:20 02/18/17 07:20 General appearance: Present: cooperative, A&O X 3, pleasant, no acute distress, answers questions appropriately - Head Head exam: Present: atraumatic, normocephalic - Eye Eye exam: Present: EOMI, conjuntiva pink - ENT ENT exam: Present: mucous membranes dry - Neck Neck exam general surgery: Present: full ROM, supple - Respiratory Respiratory exam: Present: decreased breath sounds, rhonchi - Cardiovascular Cardiovascular exam: Present: tachycardia - GI/Abdominal GI/Abdominal exam: Present: soft. Absent: firm, guarding, tenderness - Extremities Exam Extremities exam: Absent: pedal edema, tenderness - Neurological Exam Neurological exam: Present: alert, no focal deficits. Absent: speech deficit - Psychiatric Psychiatric exam: Present: normal affect, normal mood - Skin Skin exam: Present: dry, intact, normal color, warm Internal Medicine: Result - Labs CBC & Chem 7: 02/18/17 05:03 02/18/17 05:03 Labs: Short CBC 02/18/17 Range/Units 05:03 WBC 5.9 (4.3-11.1) K/mcL Hgb 11.8 (11.5-15.4) g/dL Hct 38.0 (35.3-44.9) % Plt Count 163 (140-400) K/mcL Neutrophils # 3.7 (1.6-8.9) K/mcL BMP 02/18/17 05:03 Sodium 136 Potassium 2.9 L Chloride 96 L Carbon Dioxide 32 H BUN 24 H Creatinine 0.78 Glucose 106 H Calcium 8.6 Cardiac Enzymes 02/17/17 Range/Units 09:07 Troponin I 0.05 H* (0-0.03) ng/mL - ABG Interpretation ABG results: PT/INR, D-dimer PT 29.2 Seconds (9.4-12.1) H 02/18/17 05:03 Consult Discharge Plan - Plan Referrals: Ary Aponte MD [Primary Care Provider] - <Ravindra Thomas - Last Filed: 02/18/17 17:33> Date of Encounter: 02/18/17 - Constitutional Vitals: Temp Pulse Resp BP Pulse Ox 97.4 F L 92 16 112/73 98 02/18/17 15:26 02/18/17 15:26 02/18/17 15:26 02/18/17 15:26 02/18/17 15:26 Internal Medicine: Result - Labs CBC & Chem 7: 02/18/17 05:03 02/18/17 05:03 Labs: Short CBC 02/18/17 Range/Units 05:03 WBC 5.9 (4.3-11.1) K/mcL Hgb 11.8 (11.5-15.4) g/dL Hct 38.0 (35.3-44.9) % Plt Count 163 (140-400) K/mcL Neutrophils # 3.7 (1.6-8.9) K/mcL BMP 02/18/17 05:03 Sodium 136 Potassium 2.9 L Chloride 96 L Carbon Dioxide 32 H BUN 24 H Creatinine 0.78 Glucose 106 H Calcium 8.6 - ABG Interpretation ABG results: PT/INR, D-dimer PT 29.2 Seconds (9.4-12.1) H 02/18/17 05:03 - Attending Attestation I examined this patient and my medical decision-making was reviewed with the TERMINOLOGIST/PA/Advanced Practice Nurse/Resident Physician. I agree with the documented findings, disposition and treatment plan as described except to the extent set forth below.
[2017-02-18] MEDS: *HR* Digoxin 0.125 MG TABLET PO SCH (09:18)
[2017-02-18] MEDS: Aspirin Enteric Coated 81 MG Tablet PO SCH (09:18)
[2017-02-18] MEDS: Furosemide 40 MG TABLET PO SCH ×2 (09:18→17:01)
[2017-02-18] MEDS: Insulin LISPRO 300 UNITS/3 ML VIAL SQ SCH ×4 (09:18→20:52)
[2017-02-18] MEDS: Spironolactone 25 MG TABLET PO SCH (17:01)
[2017-02-18] MEDS ORDERED: *HR* Warfarin 3 MG TABLET PO ONE (18:00)
[2017-02-19] MEDS: Pantoprazole 40 MG in 0.9 % Sodium Chloride Mini Bag 100 ML IVC SCH ×3 (01:46→07:34)
[2017-02-19 05:55] LABS: Prothrombin Time 33.5 Seconds (9.4-12.1)
[2017-02-19 06:03] LABS: BUN/Creatinine Ratio 32 (6-26); Blood Urea Nitrogen 25 mg/dL (7-20); Calcium 8.5 mg/dL (8.6-10.8); Carbon Dioxide 29 mEq/L (19-29); Chloride 94 mEq/L (98-109); Glucose 107 mg/dL (70-99); Magnesium 1.8 mg/dL (1.6-2.6); Osmolality,Calculated 281 (280-300); Potassium 3.2 mEq/L (3.5-4.5); Sodium 133 mEq/L (136-145); eGFR For African Americans > 60 (> 60); eGFR For Non-African Americans > 60 (> 60)
[2017-02-19] MEDS: Insulin LISPRO 300 UNITS/3 ML VIAL SQ SCH ×4 (08:02→20:33)
[2017-02-19] MEDS: *HR* Digoxin 0.125 MG TABLET PO SCH (08:13)
[2017-02-19] MEDS: Furosemide 40 MG TABLET PO SCH ×2 (08:13→17:46)
[2017-02-19] MEDS: Aspirin Enteric Coated 81 MG Tablet PO SCH (08:14)
[2017-02-19] MEDS ORDERED: Bisacodyl 10 MG RECTAL SUPPOSITORY RC PRN (11:33)
[2017-02-19] MEDS: Pantoprazole 40 MG VIAL IVP SCH (17:45)
[2017-02-19] MEDS: Spironolactone 25 MG TABLET PO SCH (17:46)
--- NOTE | 2017-02-19 17:55 | Internal Med Progress Note ---
Date of Encounter: 02/22/17 Time of Encounter: 17:54 - Assessment and plan (1) Dysphagia Current Visit: Yes Status: Acute Assessment and plan: Patient complains of difficulty swallowing and painful swallowing over the last 4 days. Patient reports it feels like it gets retirement down her esophagus and gets stuck, and then comes back up as "slime". She has pain in her mid sternum that is worse when she tries to swallow. CXR showed nothing acute. Dr. Wong consulted and performing EGD. EGD shows esophagitis. Continuing protonix drip. She noted swallowing better, but continued burning in chest after eating. Clear liquids diet, advanced today to Full liquids. Speech therapy consult for swallow eval, they recommended barium swallow study once esophagitis has improved/resolved. 02/19/2017 Still has persistent dysphagia. On clear liquid diet to advance. We will continue PPI drip Qualifiers: Dysphagia type: unspecified Qualified Code(s): R13.10 - Dysphagia, unspecified (2) Cardiac enzymes elevated Current Visit: Yes Status: Acute Assessment and plan: Troponins flat and adynamic. Significant cardiac history including CAD s/p CABG, ishcemic cardiomyopathy with pacemaker and AICD, CHF, LVEF < 30%, afib on coumadin, pulmonary hypertension. (3) Hypertension Current Visit: No Status: Chronic Assessment and plan: Stable Qualifiers: Hypertension type: essential hypertension Qualified Code(s): I10 - Essential (primary) hypertension (4) CAD (coronary artery disease) Current Visit: No Status: Chronic Assessment and plan: Stable Qualifiers: Coronary Disease-Associated Artery/Lesion type: bypass graft [place] vs. transplanted heart: [place] heart Associated angina: without angina Qualified Code(s): I25.810 - Atherosclerosis of coronary artery bypass graft(s) without angina pectoris (5) Atrial fibrillation Current Visit: Yes Status: Chronic Assessment and plan: Rate controlled, continue betablocker. Anticoaulated with warfarin, INR 2.6 today. Continue to monitor Qualifiers: Atrial fibrillation type: permanent Qualified Code(s): I48.2 - Chronic atrial fibrillation (6) Congestive heart failure Current Visit: Yes Status: Chronic Assessment and plan: Stable, continue beta george, digoxin, diuresis. Qualifiers: Congestive heart failure type: combined Congestive heart failure chronicity : chronic Qualified Code(s): I50.42 - Chronic combined systolic (congestive) and diastolic (congestive) heart failure - Subjective Interval history: seen and examined Chart reviewed. The patient still complaining of reflux symptoms - Constitutional Vitals: Temp Pulse Resp BP Pulse Ox 98.3 F 94 17 129/71 92 02/19/17 15:00 02/19/17 15:00 02/19/17 15:00 02/19/17 15:00 02/19/17 15:00 General appearance: Present: cooperative, A&O X 3, pleasant, no acute distress, answers questions appropriately - Head Head exam: Present: atraumatic, normocephalic - Eye Eye exam: Present: PERRL, conjuntiva pink, sclera anicteric Pupils: Present: PERRL - Neck Neck exam general surgery: Present: supple, trachea midline. Absent: lymphadenopathy - Respiratory Respiratory exam: Present: CTAB. Absent: accessory muscle use, rales, rhonchi, wheezes - Cardiovascular Cardiovascular exam: Present: RRR, +S1, +S2. Absent: diastolic murmur, gallop, rubs, systolic murmur - GI/Abdominal GI/Abdominal exam: Present: normal bowel sounds, soft, no peritoneal signs. Absent: distended, tenderness - Extremities Exam Extremities exam: Present: warm, radial pulses palpable and symetrical. Absent : calf tenderness, cyanotic, pedal edema - Neurological Exam Neurological exam: Present: CN II-XII intact, oriented X3, no focal deficits. Absent: pronater drift, facial droop, speech deficit - Skin Skin exam: Present: dry, intact Internal Medicine: Result - Labs CBC & Chem 7: 02/22/17 05:46 02/22/17 05:46 Labs: BMP 02/19/17 05:26 Sodium 133 L Potassium 3.2 L Chloride 94 L Carbon Dioxide 29 BUN 25 H Creatinine 0.77 Glucose 107 H Calcium 8.5 L - ABG Interpretation ABG results: PT/INR, D-dimer PT 33.5 Seconds (9.4-12.1) H 02/19/17 05:26 Consult Discharge Plan - Plan Referrals: Ary Aponte MD [Primary Care Provider] - 03/02/17 2:00 pm
[2017-02-20 05:02] LABS: INR 2.8; Prothrombin Time 31.7 Seconds (9.4-12.1)
[2017-02-20 05:12] LABS: BUN/Creatinine Ratio 31 (6-26); Blood Urea Nitrogen 22 mg/dL (7-20); Calcium 8.8 mg/dL (8.6-10.8); Carbon Dioxide 32 mEq/L (19-29); Chloride 93 mEq/L (98-109); Glucose 105 mg/dL (70-99); Osmolality,Calculated 286 (280-300); Sodium 136 mEq/L (136-145); eGFR For African Americans > 60 (> 60); eGFR For Non-African Americans > 60 (> 60)
[2017-02-20 05:19] LABS: Potassium 2.4 mEq/L (3.5-4.5)
[2017-02-20] MEDS: Pantoprazole 40 MG VIAL IVP SCH ×2 (06:17→17:12)
[2017-02-20 08:56] LABS: Magnesium 1.3 mg/dL (1.6-2.6)
[2017-02-20] MEDS ORDERED: Magnesium Sulfate 2 GM in D5% in Water 100 ML IVPB ONE (10:06)
[2017-02-20] MEDS: Potassium Chloride Elixir 20 MEQ/15 ML UDC PO SCH (10:58)
[2017-02-20] MEDS: Furosemide 40 MG TABLET PO SCH ×2 (10:59→17:12)
[2017-02-20] MEDS: *HR* Digoxin 0.125 MG TABLET PO SCH (10:59)
[2017-02-20] MEDS: Aspirin Enteric Coated 81 MG Tablet PO SCH (10:59)
[2017-02-20] MEDS: Insulin LISPRO 300 UNITS/3 ML VIAL SQ SCH ×4 (11:00→21:23)
[2017-02-20 12:46] LABS: Bilirubin,Urine Negative (Negative); Blood,Urine Negative (Negative); Clarity,Urine Clear (Clear); Color,Urine Yellow (Yellow); Glucose,Urine (UA) Normal (Normal); Ketones,Urine Negative (Negative); Leukocyte Esterase,Urine Negative (Negative); Nitrite,Urine Negative (Negative); PH,Urine 6.5 pH Units (5.0-8.0); Protein,Urine Negative (Neg-Trace); Specific Gravity,Urine 1.013 (1.010-1.025); Urobilinogen,Urine Normal (Normal)
--- NOTE | 2017-02-20 15:57 | Internal Med Progress Note ---
Date of Encounter: 02/22/17 Time of Encounter: 15:57 - Assessment and plan (1) Dysphagia Current Visit: Yes Status: Acute Assessment and plan: Patient complains of difficulty swallowing and painful swallowing over the last 4 days. Patient reports it feels like it gets long term down her esophagus and gets stuck, and then comes back up as "slime". She has pain in her mid sternum that is worse when she tries to swallow. CXR showed nothing acute. Dr. Wong consulted and performing EGD. EGD shows esophagitis. Continuing protonix drip. She noted swallowing better, but continued burning in chest after eating. Clear liquids diet, advanced today to Full liquids. Speech therapy consult for swallow eval, they recommended barium swallow study once esophagitis has improved/resolved. 02/19/2017 Still has persistent dysphagia. On clear liquid diet to advance. We will continue PPI drip 02/20/2017 Patient complains of persistent dysphagia We will start her on PPI twice a day. We will advance her diet. Surgery on board and we will follow recommendation Qualifiers: Dysphagia type: unspecified Qualified Code(s): R13.10 - Dysphagia, unspecified (2) Cardiac enzymes elevated Current Visit: Yes Status: Acute Assessment and plan: Troponins flat and adynamic. Significant cardiac history including CAD s/p CABG, ishcemic cardiomyopathy with pacemaker and AICD, CHF, LVEF < 30%, afib on coumadin, pulmonary hypertension. (3) Type 2 diabetes mellitus Current Visit: Yes Status: Acute Assessment and plan: Controlled as evidenced by A1c of 6.9% on 01/12/17. Patient noted to have poor oral intake due to dysphagia. Check blood sugars ACHS Low dose sliding scale correction hypoglycemic protocol. Qualifiers: Diabetes mellitus complication status: with unspecified complications Diabetes mellitus watermaster insulin use: with fci use Qualified Code(s) : E11.8 - Type 2 diabetes mellitus with unspecified complications; Z79.4 - watermaster (current) use of insulin (4) Atrial fibrillation Current Visit: Yes Status: Chronic Assessment and plan: Rate controlled, continue betablocker. Anticoaulated with warfarin, INR 2.6 today. Continue to monitor Qualifiers: Atrial fibrillation type: permanent Qualified Code(s): I48.2 - Chronic atrial fibrillation (5) CAD (coronary artery disease) Current Visit: No Status: Chronic Assessment and plan: Stable Qualifiers: Coronary Disease-Associated Artery/Lesion type: bypass graft [place] vs. transplanted heart: [place] heart Associated angina: without angina Qualified Code(s): I25.810 - Atherosclerosis of coronary artery bypass graft(s) without angina pectoris - Subjective Interval history: seen and examined Chart reviewed. Patient is complaining of epigastric burning. Patient complains about persistent regurgitating symptoms - Constitutional Vitals: Temp Pulse Resp BP Pulse Ox 97.9 F 70 17 129/67 99 02/20/17 05:12 02/20/17 07:00 02/20/17 07:00 02/20/17 07:00 02/20/17 11:00 General appearance: Present: cooperative, A&O X 3, pleasant, no acute distress, answers questions appropriately - Head Head exam: Present: atraumatic, normocephalic - Eye Eye exam: Present: PERRL, conjuntiva pink, sclera anicteric Pupils: Present: PERRL - Neck Neck exam general surgery: Present: supple, trachea midline. Absent: lymphadenopathy - Respiratory Respiratory exam: Present: CTAB. Absent: accessory muscle use, rales, rhonchi, wheezes - Cardiovascular Cardiovascular exam: Present: RRR, +S1, +S2. Absent: diastolic murmur, gallop, rubs, systolic murmur - GI/Abdominal GI/Abdominal exam: Present: normal bowel sounds, soft, no peritoneal signs. Absent: distended, tenderness - Extremities Exam Extremities exam: Present: warm, radial pulses palpable and symetrical. Absent : calf tenderness, cyanotic, pedal edema - Neurological Exam Neurological exam: Present: CN II-XII intact, oriented X3, no focal deficits. Absent: pronater drift, facial droop, speech deficit - Skin Skin exam: Present: dry, intact Internal Medicine: Result - Labs CBC & Chem 7: 02/22/17 05:46 02/22/17 05:46 Labs: BMP 02/20/17 02/20/17 04:05 11:46 Sodium 136 Potassium 2.4 L* 3.1 L Chloride 93 L Carbon Dioxide 32 H BUN 22 H Creatinine 0.71 Glucose 105 H Calcium 8.8 Urine 02/20/17 Range/Units 12:35 Urine Color Yellow (Yellow) Urine Clarity Clear (Clear) Urine pH 6.5 (5.0-8.0) pH Units Ur Specific [place] 1.013 (1.010-1.025) Urine Protein Negative (Neg-Trace) mg/dL Urine Glucose (UA) Normal (Normal) mg/dL - ABG Interpretation ABG results: PT/INR, D-dimer PT 31.7 Seconds (9.4-12.1) H 02/20/17 04:05 Consult Discharge Plan - Plan Referrals: Ary Aponte MD [Primary Care Provider] - 03/02/17 2:00 pm
[2017-02-20] MEDS: Spironolactone 25 MG TABLET PO SCH (17:13)
[2017-02-20] MEDS ORDERED: *HR* Warfarin 2.5 MG TABLET PO ONE (18:00)
[2017-02-21 04:56] LABS: Hemoglobin 11.2 g/dL (11.5-15.4); Immature Granulocytes % 0.2 % (0-4)
[2017-02-21 04:59] LABS: Basophils % 0.4 %; Eosinophils # 0.1 K/mcL (0.0-0.6); Eosinophils % 1.4 %; Hematocrit 36.6 % (35.3-44.9); Immature Platelets 6.4 % (1.1-6.1); Lymphocytes % 30.5 %; Mean Corpuscular HGB Conc 30.6 g/dL (31.6-35.5); Mean Corpuscular Hemoglobin 21.8 pg (28.0-33.3); Mean Corpuscular Volume 71.3 fL (83.0-100.0); Mean Platelet Volume 10.2 fL (9.4-12.4); Monocytes # 0.6 K/mcL (0.0-1.3); Monocytes % 11.9 %; Neutrophils # 2.8 K/mcL (1.6-8.9); Platelet Count 174 K/mcL (140-400); Red Blood Count 5.13 M/mcL (3.82-4.97); Red Cell Distribution Width 24.8 % (11.5-14.5); Segmented Neutrophils % 55.6 %
[2017-02-21 05:01] LABS: INR 2.4; Prothrombin Time 26.3 Seconds (9.4-12.1)
[2017-02-21 05:15] LABS: Lymphocytes # 1.6 K/mcL (0.6-4.6)
[2017-02-21 05:16] LABS: Anisocytosis 1+ (Not Present); Platelet Estimate Normal (Normal)
[2017-02-21 05:19] LABS: Alanine Aminotransferase 9 Units/L (0-55); Albumin 3.3 g/dL (3.5-5.0); Albumin/Globulin Ratio 0.9 (1.1-2.2); Alkaline Phosphatase 114 Units/L (38-126); Aspartate Amino Transferase 24 Units/L (5-34); BUN/Creatinine Ratio 28 (6-26); Bilirubin,Total 1.2 mg/dL (0.2-1.2); Blood Urea Nitrogen 21 mg/dL (7-20); Carbon Dioxide 31 mEq/L (19-29); Chloride 96 mEq/L (98-109); Globulin 3.5 g/dL (2.4-3.5); Glucose 107 mg/dL (70-99); Osmolality,Calculated 283 (280-300); Potassium 3.1 mEq/L (3.5-4.5); Sodium 135 mEq/L (136-145); Total Protein 6.8 g/dL (6.0-8.3); eGFR For African Americans > 60 (> 60); eGFR For Non-African Americans > 60 (> 60)
[2017-02-21] MEDS: Pantoprazole 40 MG VIAL IVP SCH ×2 (06:11→17:25)
[2017-02-21] MEDS: Insulin LISPRO 300 UNITS/3 ML VIAL SQ SCH ×4 (09:30→21:42)
[2017-02-21] MEDS: Potassium Chloride Elixir 20 MEQ/15 ML UDC PO SCH (09:42)
[2017-02-21] MEDS: Furosemide 40 MG TABLET PO SCH ×2 (09:43→17:25)
[2017-02-21] MEDS: *HR* Digoxin 0.125 MG TABLET PO SCH (09:43)
[2017-02-21] MEDS: Aspirin Enteric Coated 81 MG Tablet PO SCH (09:43)
[2017-02-21] MEDS: Sucralfate 1 GM TABLET PO SCH ×2 (09:43→17:25)
--- NOTE | 2017-02-21 11:31 | Internal Med Progress Note ---
Date of Encounter: 02/22/17 Time of Encounter: 11:31 - Assessment and plan (1) Dysphagia Current Visit: Yes Status: Acute Assessment and plan: Patient complains of difficulty swallowing and painful swallowing over the last 4 days. Patient reports it feels like it gets mcfp down her esophagus and gets stuck, and then comes back up as "slime". She has pain in her mid sternum that is worse when she tries to swallow. CXR showed nothing acute. Dr. Wong consulted and performing EGD. EGD shows esophagitis. Continuing protonix drip. She noted swallowing better, but continued burning in chest after eating. Clear liquids diet, advanced today to Full liquids. Speech therapy consult for swallow eval, they recommended barium swallow study once esophagitis has improved/resolved. 02/19/2017 Still has persistent dysphagia. On clear liquid diet to advance. We will continue PPI drip 02/20/2017 Patient complains of persistent dysphagia We will start her on PPI twice a day. We will advance her diet. Surgery on board and we will follow recommendation 02/21/2017 Still has occasional dysphagia. We will add Carafate and PPI therapy Close follow-up. If by tomorrow dysphagia persists then we will do garcia CT scan Qualifiers: Dysphagia type: unspecified Qualified Code(s): R13.10 - Dysphagia, unspecified (2) Cardiac enzymes elevated Current Visit: Yes Status: Acute Assessment and plan: Troponins flat and adynamic. Significant cardiac history including CAD s/p CABG, ishcemic cardiomyopathy with pacemaker and AICD, CHF, LVEF < 30%, afib on coumadin, pulmonary hypertension. (3) Type 2 diabetes mellitus Current Visit: Yes Status: Acute Assessment and plan: Controlled as evidenced by A1c of 6.9% on 01/12/17. Patient noted to have poor oral intake due to dysphagia. Check blood sugars ACHS Low dose sliding scale correction hypoglycemic protocol. Qualifiers: Diabetes mellitus complication status: with unspecified complications Diabetes mellitus long term care administrator insulin use: with alf use Qualified Code(s) : E11.8 - Type 2 diabetes mellitus with unspecified complications; Z79.4 - senior care (current) use of insulin (4) Atrial fibrillation Current Visit: Yes Status: Chronic Assessment and plan: Rate controlled, continue betablocker. Anticoaulated with warfarin, INR 2.6 today. Continue to monitor Qualifiers: Atrial fibrillation type: permanent Qualified Code(s): I48.2 - Chronic atrial fibrillation (5) Hypertension Current Visit: No Status: Chronic Assessment and plan: Stable Qualifiers: Hypertension type: essential hypertension Qualified Code(s): I10 - Essential (primary) hypertension - Subjective Interval history: seen and examined Chart reviewed. Patient feels little better as compared to yesterday. - Constitutional Vitals: Temp Pulse Resp BP Pulse Ox 98.7 F 71 17 127/78 99 02/21/17 04:33 02/21/17 07:00 02/21/17 07:00 02/21/17 04:33 02/21/17 08:00 General appearance: Present: cooperative, A&O X 3, pleasant, no acute distress, answers questions appropriately - Head Head exam: Present: atraumatic, normocephalic - Eye Eye exam: Present: PERRL, conjuntiva pink, sclera anicteric Pupils: Present: PERRL - Neck Neck exam general surgery: Present: supple, trachea midline. Absent: lymphadenopathy - Respiratory Respiratory exam: Present: CTAB. Absent: accessory muscle use, rales, rhonchi, wheezes - Cardiovascular Cardiovascular exam: Present: RRR, +S1, +S2. Absent: diastolic murmur, gallop, rubs, systolic murmur - GI/Abdominal GI/Abdominal exam: Present: normal bowel sounds, soft, no peritoneal signs. Absent: distended, tenderness - Extremities Exam Extremities exam: Present: warm, radial pulses palpable and symetrical. Absent : calf tenderness, cyanotic, pedal edema - Neurological Exam Neurological exam: Present: CN II-XII intact, oriented X3, no focal deficits. Absent: pronater drift, facial droop, speech deficit - Skin Skin exam: Present: dry, intact Internal Medicine: Result - Labs CBC & Chem 7: 02/22/17 05:46 02/22/17 05:46 Labs: Short CBC 02/21/17 Range/Units 04:43 WBC 5.1 (4.3-11.1) K/mcL Hgb 11.2 L (11.5-15.4) g/dL Hct 36.6 (35.3-44.9) % Plt Count 174 (140-400) K/mcL Neutrophils # 2.8 (1.6-8.9) K/mcL BMP 02/20/17 02/21/17 11:46 04:43 Sodium 135 L Potassium 3.1 L 3.1 L Chloride 96 L Carbon Dioxide 31 H BUN 21 H Creatinine 0.76 Glucose 107 H Calcium 9.0 Liver Function 02/21/17 Range/Units 04:43 Total Bilirubin 1.2 (0.2-1.2) mg/dL AST 24 (5-34) Units/L ALT 9 (0-55) Units/L Alkaline Phosphatase 114 (38-126) Units/L Albumin 3.3 L (3.5-5.0) g/dL Urine 02/20/17 Range/Units 12:35 Urine Color Yellow (Yellow) Urine Clarity Clear (Clear) Urine pH 6.5 (5.0-8.0) pH Units Ur Specific [place] 1.013 (1.010-1.025) Urine Protein Negative (Neg-Trace) mg/dL Urine Glucose (UA) Normal (Normal) mg/dL - ABG Interpretation ABG results: PT/INR, D-dimer PT 26.3 Seconds (9.4-12.1) H 02/21/17 04:43 Consult Discharge Plan - Plan Referrals: Ary Aponte MD [Primary Care Provider] - 03/02/17 2:00 pm
[2017-02-21] MEDS: Spironolactone 25 MG TABLET PO SCH (17:25)
[2017-02-21] MEDS ORDERED: *HR* Warfarin 2.5 MG TABLET PO ONE (18:00)
[2017-02-21] MEDS ORDERED: Sennosides 8.6 MG TABLET PO PRN (18:47)
[2017-02-22] MEDS: Pantoprazole 40 MG VIAL IVP SCH ×2 (05:22→16:33)
[2017-02-22 06:08] LABS: INR 2.6
[2017-02-22 06:22] LABS: Alanine Aminotransferase 8 Units/L (0-55); Albumin 3.4 g/dL (3.5-5.0); Alkaline Phosphatase 118 Units/L (38-126); Aspartate Amino Transferase 23 Units/L (5-34); BUN/Creatinine Ratio 26 (6-26); Bilirubin,Total 1.1 mg/dL (0.2-1.2); Blood Urea Nitrogen 20 mg/dL (7-20); Calcium 9.1 mg/dL (8.6-10.8); Carbon Dioxide 31 mEq/L (19-29); Chloride 98 mEq/L (98-109); Globulin 3.5 g/dL (2.4-3.5); Glucose 115 mg/dL (70-99); Osmolality,Calculated 288 (280-300); Potassium 3.3 mEq/L (3.5-4.5); Sodium 137 mEq/L (136-145); Total Protein 6.9 g/dL (6.0-8.3); eGFR For African Americans > 60 (> 60); eGFR For Non-African Americans > 60 (> 60)
[2017-02-22 06:23] LABS: Basophils % 0.6 %; Eosinophils # 0.1 K/mcL (0.0-0.6); Eosinophils % 1.3 %; Hematocrit 37.7 % (35.3-44.9); Hemoglobin 11.4 g/dL (11.5-15.4); Immature Granulocytes % 0.2 % (0-4); Lymphocytes # 1.3 K/mcL (0.6-4.6); Lymphocytes % 25.2 %; Mean Corpuscular HGB Conc 30.2 g/dL (31.6-35.5); Mean Corpuscular Hemoglobin 21.8 pg (28.0-33.3); Mean Corpuscular Volume 72.1 fL (83.0-100.0); Mean Platelet Volume 10.2 fL (9.4-12.4); Monocytes # 0.6 K/mcL (0.0-1.3); Monocytes % 11.7 %; Neutrophils # 3.2 K/mcL (1.6-8.9); Platelet Count 176 K/mcL (140-400); Red Blood Count 5.23 M/mcL (3.82-4.97); Red Cell Distribution Width 25.3 % (11.5-14.5)
[2017-02-22 07:49] LABS: Anisocytosis 1+ (Not Present); Hypochromasia Present (Not Present); Ovalocytes 1+ (Not Present)
[2017-02-22 07:52] LABS: Macrocytosis Present (Not Present); Microcytosis Present (Not Present); Poikilocytosis 1+ (Not Present)
[2017-02-22] MEDS: Insulin LISPRO 300 UNITS/3 ML VIAL SQ SCH ×4 (08:18→23:58)
[2017-02-22] MEDS: Sucralfate 1 GM TABLET PO SCH ×2 (08:25→16:33)
[2017-02-22] MEDS: *HR* Digoxin 0.125 MG TABLET PO SCH (08:25)
[2017-02-22] MEDS: Aspirin Enteric Coated 81 MG Tablet PO SCH (08:25)
[2017-02-22] MEDS: Furosemide 40 MG TABLET PO SCH ×2 (08:26→16:31)
[2017-02-22] MEDS: Potassium Chloride Elixir 20 MEQ/15 ML UDC PO SCH (08:33)
--- NOTE | 2017-02-22 09:27 | Internal Med Progress Note ---
<HilarioTyrell Patty - Last Filed: 02/22/17 13:28> Date of Encounter: 02/22/17 Time of Encounter: 09:25 - Assessment and plan (1) Esophagitis Current Visit: Yes Status: Acute Assessment and plan: Found on EGD, Patient tolerating full liquids, still having difficulty with solid food. No vomiting, hematemasis or coffee ground emesis. Continue PPI BID and carafate. Will order CT head/soft tissues neck/chest/abdomen/pelvis to evaluate for other causes of dysphagia (2) Congestive heart failure Current Visit: Yes Status: Chronic Assessment and plan: Stable, continue beta george, digoxin, diuresis. Qualifiers: Congestive heart failure type: combined Congestive heart failure chronicity : chronic Qualified Code(s): I50.42 - Chronic combined systolic (congestive) and diastolic (congestive) heart failure (3) Atrial fibrillation Current Visit: Yes Status: Chronic Assessment and plan: Rate controlled, continue betablocker. Anticoaulated with warfarin, INR 2.6 today. Continue to monitor Qualifiers: Atrial fibrillation type: permanent Qualified Code(s): I48.2 - Chronic atrial fibrillation (4) Hypokalemia Current Visit: Yes Status: Acute Assessment and plan: Improving, 3.3 today. Continue with potassium 40 meq daily. Recheck in the morning (5) Hypomagnesemia Current Visit: Yes Status: Acute Assessment and plan: Normalized after replacement. Recheck in AM. Supplement as needed (6) DVT prophylaxis Current Visit: Yes Status: Acute Assessment and plan: Anticoagulated on warfarin with INR 2.6 - Subjective Interval history: Patient states she feels about the same today. She is tolerating a liquid diet well but complains of pain and difficultly swallowing with solid foods. She denies any nausea or vomiting - Constitutional Vitals: Temp Pulse Resp BP Pulse Ox 98.4 F 73 16 114/60 97 02/22/17 07:41 02/22/17 07:41 02/22/17 07:41 02/22/17 07:41 02/22/17 07:41 General appearance: Present: cooperative, A&O X 3, pleasant, no acute distress, answers questions appropriately - Respiratory Respiratory exam: Present: CTAB. Absent: rales, rhonchi, wheezes - Cardiovascular Cardiovascular exam: Present: RRR. Absent: gallop, rubs, systolic murmur - GI/Abdominal GI/Abdominal exam: Present: normal bowel sounds, soft. Absent: distended, tenderness - Neurological Exam Neurological exam: Present: alert, CN II-XII intact, oriented X3. Absent: no focal deficits Internal Medicine: Result - Labs CBC & Chem 7: 02/22/17 05:46 02/22/17 05:46 Labs: Short CBC 02/22/17 Range/Units 05:46 WBC 5.3 (4.3-11.1) K/mcL Hgb 11.4 L (11.5-15.4) g/dL Hct 37.7 (35.3-44.9) % Plt Count 176 (140-400) K/mcL Neutrophils # 3.2 (1.6-8.9) K/mcL BMP 02/22/17 05:46 Sodium 137 Potassium 3.3 L Chloride 98 Carbon Dioxide 31 H BUN 20 Creatinine 0.78 Glucose 115 H Calcium 9.1 Liver Function 02/22/17 Range/Units 05:46 Total Bilirubin 1.1 (0.2-1.2) mg/dL AST 23 (5-34) Units/L ALT 8 (0-55) Units/L Alkaline Phosphatase 118 (38-126) Units/L Albumin 3.4 L (3.5-5.0) g/dL - ABG Interpretation ABG results: PT/INR, D-dimer PT 29.0 Seconds (9.4-12.1) H 02/22/17 05:46 Consult Discharge Plan - Plan Referrals: Ary Aponte MD [Primary Care Provider] - 03/02/17 2:00 pm <Ravindra Thomas - Last Filed: 02/22/17 17:35> Date of Encounter: 02/22/17 - Constitutional Vitals: Temp Pulse Resp BP Pulse Ox 97.4 F L 73 16 113/71 97 02/22/17 11:38 02/22/17 16:07 02/22/17 07:41 02/22/17 16:07 02/22/17 07:41 Internal Medicine: Result - Labs CBC & Chem 7: 02/22/17 05:46 02/22/17 05:46 Labs: Short CBC 02/22/17 Range/Units 05:46 WBC 5.3 (4.3-11.1) K/mcL Hgb 11.4 L (11.5-15.4) g/dL Hct 37.7 (35.3-44.9) % Plt Count 176 (140-400) K/mcL Neutrophils # 3.2 (1.6-8.9) K/mcL BMP 02/22/17 05:46 Sodium 137 Potassium 3.3 L Chloride 98 Carbon Dioxide 31 H BUN 20 Creatinine 0.78 Glucose 115 H Calcium 9.1 Liver Function 02/22/17 Range/Units 05:46 Total Bilirubin 1.1 (0.2-1.2) mg/dL AST 23 (5-34) Units/L ALT 8 (0-55) Units/L Alkaline Phosphatase 118 (38-126) Units/L Albumin 3.4 L (3.5-5.0) g/dL - ABG Interpretation ABG results: PT/INR, D-dimer PT 29.0 Seconds (9.4-12.1) H 02/22/17 05:46 - Impressions Impressions Abdomen/Pelvis CT 02/22/17 13:00 IMPRESSION: 1. No acute finding in chest, abdomen, or pelvis to account for patient's dysphagia. 2. Mild centrilobular emphysema. 3. Cardiomegaly with coronary artery disease. 4. Osteopenia. 5. Right adrenal nodule, 1.2 cm, likely an adenoma. D/ / 02/22/2017 14:49:24 Michael Franco MD / veronica Interpreting Provider: Michael Franco MD Chest CT 02/22/17 13:00 IMPRESSION: 1. No acute finding in chest, abdomen, or pelvis to account for patient's dysphagia. 2. Mild centrilobular emphysema. 3. Cardiomegaly with coronary artery disease. 4. Osteopenia. 5. Right adrenal nodule, 1.2 cm, likely an adenoma. D/ / 02/22/2017 14:49:24 Michael Franco MD / veronica Interpreting Provider: Michael Franco MD Head CT 02/22/17 13:00 IMPRESSION: No acute intracranial abnormality. D/ / 02/22/2017 14:51:21 Farhan Terrell MD / veronica Interpreting Provider: Farhan Terrell MD Soft Tissue Neck CT 02/22/17 13:00 IMPRESSION: No acute abnormality of the soft tissue structures of the neck. D/ / 02/22/2017 14:44:18 Nadiya Osman MD / veronica Interpreting Provider: Nadiya Osman MD - Attending Attestation I examined this patient and my medical decision-making was reviewed with the REPOSSESSION AGENT/PA/Advanced Practice Nurse/Resident Physician. I agree with the documented findings, disposition and treatment plan as described except to the extent set forth below.
[2017-02-22] MEDS ORDERED: Aminoglycoside Consult 1 EACH MC ONE (13:29)
[2017-02-22] MEDS: Spironolactone 25 MG TABLET PO SCH (16:33)
[2017-02-22] MEDS ORDERED: *HR* Warfarin 2.5 MG TABLET PO ONE (18:00)
[2017-02-23] MEDS: Pantoprazole 40 MG VIAL IVP SCH (05:43)
[2017-02-23 05:59] LABS: Eosinophils % 1.2 %; Hemoglobin 11.2 g/dL (11.5-15.4); Immature Granulocytes % 0.2 % (0-4)
[2017-02-23 06:01] LABS: Basophils % 0.6 %; Eosinophils # 0.1 K/mcL (0.0-0.6); Hematocrit 35.5 % (35.3-44.9); Lymphocytes # 1.5 K/mcL (0.6-4.6); Mean Corpuscular HGB Conc 31.5 g/dL (31.6-35.5); Mean Corpuscular Hemoglobin 22.6 pg (28.0-33.3); Mean Corpuscular Volume 71.7 fL (83.0-100.0); Monocytes # 0.6 K/mcL (0.0-1.3); Monocytes % 11.3 %; Platelet Count 169 K/mcL (140-400); Red Blood Count 4.95 M/mcL (3.82-4.97); Red Cell Distribution Width 25.5 % (11.5-14.5); Segmented Neutrophils % 57.7 %
[2017-02-23 06:02] LABS: Prothrombin Time 33.3 Seconds (9.4-12.1)
[2017-02-23 06:13] LABS: BUN/Creatinine Ratio 25 (6-26); Blood Urea Nitrogen 18 mg/dL (7-20); Carbon Dioxide 30 mEq/L (19-29); Chloride 97 mEq/L (98-109); Glucose 127 mg/dL (70-99); Magnesium 1.4 mg/dL (1.6-2.6); Osmolality,Calculated 283 (280-300); Potassium 3.6 mEq/L (3.5-4.5); Sodium 135 mEq/L (136-145); eGFR For African Americans > 60 (> 60); eGFR For Non-African Americans > 60 (> 60)
[2017-02-23 06:23] LABS: Neutrophils # 2.9 K/mcL (1.6-8.9)
[2017-02-23 06:24] LABS: Anisocytosis 3+ (Not Present); Microcytosis Present (Not Present)
[2017-02-23 06:25] LABS: Polychromasia 1+ (Not Present)
[2017-02-23 07:52] VITALS: BP 123/66
[2017-02-23] MEDS ORDERED: Magnesium Sulfate 2 GM in D5% in Water 100 ML IVPB ONE (07:52)
--- NOTE | 2017-02-23 08:28 | Discharge Summary ---
<Tyrell Rich - Last Filed: 02/23/17 10:12> Date of Encounter: 02/23/17 Time of Encounter: 08:21 - Discharge Diagnosis (1) Esophagitis Priority: Primary Status: Acute (2) Congestive heart failure Priority: Secondary Status: Chronic Qualifiers: Congestive heart failure type: combined Congestive heart failure chronicity : chronic Qualified Code(s): I50.42 - Chronic combined systolic (congestive) and diastolic (congestive) heart failure (3) Atrial fibrillation Priority: Secondary Status: Chronic Qualifiers: Atrial fibrillation type: permanent Qualified Code(s): I48.2 - Chronic atrial fibrillation (4) Hypokalemia Priority: Secondary Status: Acute (5) Hypomagnesemia Priority: Secondary Status: Acute (6) DVT prophylaxis Priority: Secondary Status: Acute - Discharge Medications Prescriptions: Lidocaine Viscous Oral Soln 15 ml MM TIDWM #150 solution Magnesium Oxide [Magnesium] 400 mg PO BID #60 tablet Sucralfate [Carafate] 1 gm PO QID #120 tablet Home Medications: Aspirin [Adult Low Dose Aspirin EC] 81 mg PO QAM 10/02/15 [History] Atorvastatin [Lipitor] 40 mg PO QPM 10/02/15 [History] Benzonatate [Tessalon] 100 mg PO TID PRN 10/02/15 [History] Calcium Carbonate/Vitamin D3 [Calcium 600 + Vit D Tablet] 2 each PO QAM [History] Digoxin [Lanoxin] 0.125 mg PO QAM 10/02/15 [History] Furosemide [Lasix] 80 mg PO BID 10/02/15 [History] Levothyroxine [Synthroid] 150 mcg PO QAM 10/02/15 [History] Loratadine [Claritin] 10 mg PO QAM 10/02/15 [History] Nitroglycerin [Nitrostat] 0.4 mg SL Q5M PRN 10/02/15 [History] Omeprazole [PriLOSEC] 40 mg PO BID 10/02/15 [History] Potassium Chloride [K-Tab ER] 20 meq PO 5XD 10/02/15 [History] Warfarin [Coumadin] 2.5 mg PO DAILY 10/02/15 [History] diazePAM [Valium] 10 mg PO BID PRN 10/02/15 [History] Spironolactone [Aldactone] 25 mg PO QPM 08/06/16 [History] Carvedilol 3.125 mg PO BID 01/12/17 [History] Insulin Lispro Protamin/Lispro [Humalog Mix 75-25 Vial] 14 unit SQ QPM 01/12/17 [History] Insulin Lispro Protamin/Lispro [Humalog Mix 75-25 Vial] 20 unit SQ QAM 01/12/17 [History] Tramadol HCl [Ultram] 50 mg PO Q6H PRN 01/12/17 [History] Oxygen 2 l NS AD 02/16/17 [History] metOLazone [Zaroxolyn] 2.5 mg PO Q48H 02/16/17 [History] Lidocaine Viscous Oral Soln 15 ml MM TIDWM #150 solution 02/23/17 [Rx] Magnesium Oxide [Magnesium] 400 mg PO BID #60 tablet 02/23/17 [Rx] Sucralfate [Carafate] 1 gm PO QID #120 tablet 02/23/17 [Rx] Allergies/Adverse Reactions: Allergies metoprolol Allergy (Verified 02/16/17 14:03) Anaphylaxis Oxycodone [From Percocet] Adverse Reaction (Intermediate, Verified 02/16/17 14: 03) See Comments Severe Constipation fenofibrate [From Tricor] Adverse Reaction (Verified 02/16/17 16:52) Gastrointestinal Upset dye Allergy (Uncoded 10/02/15 11:44) Anaphylaxis vicodin Adverse Reaction (Intermediate, Uncoded 01/13/17 13:18) See Comments Severe Constipation Procedures/tests Complete & Pending: Procedures Performed prior 72 hours Category Date Time Status CT abd pelvis wo no iv no oral [CT] Routine Cat Scan 02/22/17 13:[address] chest wo con [CT] Routine Cat Scan 02/22/17 13:[address] head/brain wo con [CT] Routine Cat Scan 02/22/17 13:[address] soft tissue neck wo con [CT] Routine Cat Scan 02/22/17 13:00 Draft Date of admission: 02/21/17 14:42 Primary care physician: Ary Aponte Consults: Dr. Wong Discharging clinician: Tyrell Rich Anticipated date of discharge: 02/23/17 - Patient Status Disposition: Home, Self-Care Condition: Fair Functional capacity at discharge: uses cane/walker Overall status at discharge: patient is progressing back to baseline - Discharge Instructions Instructions: Sucralfate (By mouth), Magnesium Oxide (By mouth), Lidocaine (By mouth), Heart Failure (DC), Atrial Fibrillation (DC), Hypothyroidism (DC), Diabetes Mellitus Type 2 in Adults (DC), Chronic Dysphagia (DC), Chronic Hypertension (DC), Corrosive Esophagitis (DC), Corrosive Esophagitis (GEN) Follow Up With: Stalin Wong MD [Non-Partnered Physician] - (Office will call patient at home with appointment) Ary Aponte MD [Primary Care Provider] - 03/02/17 2:00 pm Additional Instructions: Please follow up with your primary care physician as scheduled. Please follow up with Dr. Wong. Please take sucralfate 3 times a day and at bedtime. Please take magnesium twice a day. Resume your other home medications. Continue with liquid diet and add soft foods as tolerated. Please return for any new or worsening symptoms. - Diet and Activity Activity: increase activity as tolerated Diet: low salt diet, other (Full liquids and add foods as tolerated) Interval History: Patient seen and examined. Patient feels about the same. She is still tolerating liquids but is having pain with solid food. Otherwise she feels normal. Hospital course: Ms. Mosley is a 81 year old female with history of afib, chf, DM2 presented with difficulty swallowing. She stated that it was painful with solid food but could tolerate liquids better. EGD was performed which showed esophagitis. Patient was initally started on protonix drip and carafate. Patient was transitioned to BID PPI and carafate. Patient was able to tolerate a full liquid diet but still complained of difficultly with solid food. CT scan of head /neck/chest/abdomen/pelvis was performed to rule out other causes of dysphagia which were unremarkable. On day of discharge patient was given viscous lidocaine to help with discomfort. Patient will be discharged home in stable condition on PPI, carafate, viscous lidocaine with close follow up with her PCP and Dr. Wong - Time Spent with Patient Total time spent providing and/or coordinating discharge services: 30 minutes Greater than 30 minutes - Constitutional Vitals: Temp Pulse Resp BP Pulse Ox 97.9 F 81 15 123/66 99 02/23/17 07:46 02/23/17 07:46 02/23/17 07:46 02/23/17 07:46 02/23/17 07:46 General appearance: Present: cooperative, A&O X 3, pleasant, no acute distress, answers questions appropriately - Neck Neck exam general surgery: Present: full ROM. Absent: tenderness - Respiratory Respiratory exam: Present: CTAB. Absent: rales, rhonchi, wheezes - Cardiovascular Cardiovascular exam: Present: irregular rhythm. Absent: gallop, rubs, systolic murmur, tachycardia - GI/Abdominal GI/Abdominal exam: Present: normal bowel sounds, soft. Absent: distended, tenderness - Extremities Exam Extremities exam: Present: warm. Absent: pedal edema, tenderness - Neurological Exam Neurological exam: Present: alert, CN II-XII intact, oriented X3, no focal deficits <Faustino Pratt - Last Filed: 02/23/17 18:55> Date of Encounter: 02/23/17 - Discharge Diagnosis (1) Esophagitis, reflux Priority: Primary Status: Acute (2) Esophagitis Status: Acute (3) Odynophagia Priority: Secondary Status: Acute (4) Congestive heart failure Status: Chronic Comments: Not on IZABELA due to MR and pt preference. Qualifiers: Congestive heart failure type: combined Congestive heart failure chronicity : chronic Qualified Code(s): I50.42 - Chronic combined systolic (congestive) and diastolic (congestive) heart failure (5) Hypertension Priority: Secondary Status: Chronic Qualifiers: Hypertension type: essential hypertension Qualified Code(s): I10 - Essential (primary) hypertension (6) Hypothyroid Priority: Secondary Status: Chronic Qualifiers: Hypothyroidism type: acquired Qualified Code(s): E03.9 - Hypothyroidism, unspecified (7) Ischemic cardiomyopathy Priority: Secondary Status: Chronic Procedures/tests Complete & Pending: Procedures Performed prior 72 hours Category Date Time Status CT abd pelvis wo no iv no oral [CT] Routine Cat Scan 02/22/17 13:[address] chest wo con [CT] Routine Cat Scan 02/22/17 13:[address] head/brain wo con [CT] Routine Cat Scan 02/22/17 13:[address] soft tissue neck wo con [CT] Routine Cat Scan 02/22/17 13:00 Draft Date of admission: 02/21/17 14:42 Primary care physician: Ary Kong [facility] course: Ms. Mosley is a 81 year old female - Time Spent with Patient Total time spent providing and/or coordinating discharge services: 37min - Constitutional Vitals: Temp Pulse Resp BP Pulse Ox 97.9 F 81 15 123/66 99 02/23/17 07:46 02/23/17 07:46 02/23/17 07:46 02/23/17 07:46 02/23/17 07:46 - Attending Attestation I examined this patient and my medical decision-making was reviewed with the Resident Physician on 02/23/17. I agree with the documented findings, disposition and treatment plan as described except to the extent set forth below. Ms. Mosley is doing OK but still has a lot of pain and difficulty swallowing. No fever and vitals stable. Exam Alert. Comfortable Heart reg No wheeze Plan D/C home Outpatient follow up.
[2017-02-23] MEDS ORDERED: Lidocaine Viscous Oral Soln 15 ML SOLUTION MM ONE (08:43)
[2017-02-23] MEDS: Insulin LISPRO 300 UNITS/3 ML VIAL SQ SCH (09:24)
[2017-02-23] MEDS: Sucralfate 1 GM TABLET PO SCH (09:33)
[2017-02-23] MEDS: Furosemide 40 MG TABLET PO SCH (09:33)
[2017-02-23] MEDS: Aspirin Enteric Coated 81 MG Tablet PO SCH (09:33)
[2017-02-23] MEDS: *HR* Digoxin 0.125 MG TABLET PO SCH (09:35)
[2017-02-23] MEDS: Potassium Chloride Elixir 20 MEQ/15 ML UDC PO SCH (09:39)
[2017-02-23] MEDS ORDERED: Lidocaine Viscous Oral Soln 15 ML SOLUTION MM SCH (12:00)
--- NOTE | 2017-02-23 13:03 | Physician Discharge Referral ---
Home Health/Hosp Referral Info Transfer to: Home Health Attending Provider: Faustino Pratt D.O. Provider in Charge Post Discharge: PCP - Diagnosis (1) Esophagitis Priority: Primary Status: Acute (2) Congestive heart failure Priority: Secondary Status: Chronic (3) Atrial fibrillation Priority: Secondary Status: Chronic (4) Hypokalemia Priority: Secondary Status: Acute (5) Hypomagnesemia Priority: Secondary Status: Acute (6) DVT prophylaxis Priority: Secondary Status: Acute - Respiratory Orders None Smoking Cessation: Smoking cessation has been advised. For more information, call the [place] Tobacco Quit Line at 8-641-QNSK-NOW. - Diet/Nutrition Diet/Nutrition Orders: Cardiac Diet/Nutrition: List: Full Liquid diet, advance as tolerated - Activity Activity Orders: Walker - Services Needed Following services are medically necessary services: Nursing, Home Health Aide - Transfer Medications Prescriptions: Lidocaine Viscous Oral Soln 15 ml MM TIDWM #150 solution Magnesium Oxide [Magnesium] 400 mg PO BID #60 tablet Sucralfate [Carafate] 1 gm PO QID #120 tablet Home Medications: Aspirin [Adult Low Dose Aspirin EC] 81 mg PO QAM 10/02/15 [History] Atorvastatin [Lipitor] 40 mg PO QPM 10/02/15 [History] Benzonatate [Tessalon] 100 mg PO TID PRN 10/02/15 [History] Calcium Carbonate/Vitamin D3 [Calcium 600 + Vit D Tablet] 2 each PO QAM [History] Digoxin [Lanoxin] 0.125 mg PO QAM 10/02/15 [History] Furosemide [Lasix] 80 mg PO BID 10/02/15 [History] Levothyroxine [Synthroid] 150 mcg PO QAM 10/02/15 [History] Loratadine [Claritin] 10 mg PO QAM 10/02/15 [History] Nitroglycerin [Nitrostat] 0.4 mg SL Q5M PRN 10/02/15 [History] Omeprazole [PriLOSEC] 40 mg PO BID 10/02/15 [History] Potassium Chloride [K-Tab ER] 20 meq PO 5XD 10/02/15 [History] Warfarin [Coumadin] 2.5 mg PO DAILY 10/02/15 [History] diazePAM [Valium] 10 mg PO BID PRN 10/02/15 [History] Spironolactone [Aldactone] 25 mg PO QPM 08/06/16 [History] Carvedilol 3.125 mg PO BID 01/12/17 [History] Insulin Lispro Protamin/Lispro [Humalog Mix 75-25 Vial] 14 unit SQ QPM 01/12/17 [History] Insulin Lispro Protamin/Lispro [Humalog Mix 75-25 Vial] 20 unit SQ QAM 01/12/17 [History] Tramadol HCl [Ultram] 50 mg PO Q6H PRN 01/12/17 [History] Oxygen 2 l NS AD 02/16/17 [History] metOLazone [Zaroxolyn] 2.5 mg PO Q48H 02/16/17 [History] Lidocaine Viscous Oral Soln 15 ml MM TIDWM #150 solution 02/23/17 [Rx] Magnesium Oxide [Magnesium] 400 mg PO BID #60 tablet 02/23/17 [Rx] Sucralfate [Carafate] 1 gm PO QID #120 tablet 02/23/17 [Rx] Allergies/Adverse Reactions: Allergies metoprolol Allergy (Verified 02/16/17 14:03) Anaphylaxis Oxycodone [From Percocet] Adverse Reaction (Intermediate, Verified 02/16/17 14: 03) See Comments Severe Constipation fenofibrate [From Tricor] Adverse Reaction (Verified 02/16/17 16:52) Gastrointestinal Upset dye Allergy (Uncoded 10/02/15 11:44) Anaphylaxis vicodin Adverse Reaction (Intermediate, Uncoded 01/13/17 13:18) See Comments Severe Constipation Certification: Further, I certify that my clinical findings support that this patient is homebound (i.e. absences from home require considerable and taxing effort and are for medical reasons or taoism services or infrequently or short duration when for other reasons) because: Homebound Reason: Patient requires assistance of a person or device to safely leave home, Leaving home requires considerable and taxing effort due to condition, Severity of cardiac or pulmonary status limits activity tolerance Attestation: My signature below is to certify that this patient is under my care and that I, or nurse practitioner, or a physician's clinical medical assistant working with me, has a face-to -face encounter with this patient.
== END 2017-02-23 13:30 | disposition home health service (06) | DRG 392 ==
LOC: 2NENU 13:54 → EMEROO 13:54 → 2NENU 17:26 → SUATTDRO 02-21 14:42
PROVIDERS: ADMIT Internal Medicine Endocrinology, Diabetes & Metabolism; ATTEND Internal Medicine

== ENCOUNTER 2018-02-16 14:53 | Inpatient (IN) ==
[2018-02-16] MEDS ORDERED: GI Cocktail 40 ML EACH PO ONE (16:58)
[2018-02-16] MEDS ORDERED: 0.9 % Sodium Chloride 500 ML IVC ONE (17:09)
[2018-02-16 17:32] LABS: Basophils % 0.3 %; Eosinophils % 0.2 %; Hematocrit 41.6 % (35.3-44.9); Hemoglobin 15.1 g/dL (11.5-15.4); Immature Granulocytes % 0.3 % (0-4); Lymphocytes # 1.5 K/mcL (0.6-4.6); Lymphocytes % 12.7 %; Mean Corpuscular HGB Conc 36.3 g/dL (31.6-35.5); Mean Corpuscular Hemoglobin 28.9 pg (28.0-33.3); Mean Corpuscular Volume 79.7 fL (83.0-100.0); Mean Platelet Volume 10.5 fL (9.4-12.4); Monocytes % 8.1 %; Neutrophils # 9.3 K/mcL (1.6-8.9); Platelet Count 238 K/mcL (140-400); Red Blood Count 5.22 M/mcL (3.82-4.97); Red Cell Distribution Width 13.4 % (11.5-14.5); Segmented Neutrophils % 78.4 %
--- NOTE | 2018-02-16 17:35 | Emergency Department Note ---
Disposition Clinical Impression: Elevated troponin, Acute kidney injury, Hypokalemia, Hyponatremia, Esophagitis Disposition: Admitted As Inpatient Condition: Good General Adult HPI - General Chief complaint: ED Upper Respiratory Infection Stated complaint: sore throat, esophagus pain Time Seen by Provider: 02/16/18 16:39 Source: patient Mode of arrival: private vehicle Limitations: no limitations Nursing Notes Reviewed: Yes Vital Signs Reviewed: Yes - History of Present Illness HPI Narrative: 82-year-old female past medical history of cardiomyopathy, atrial fibrillation on Coumadin, pacemaker placement, esophagitis who presents to the ER with a chief complaint of sore throat. Patient states that she has a history of this previously. States for the last 10 days she has been on amoxicillin from her primary care provider. She went to urgent care yesterday at the request of her primary care provider to get lab work performed. She states that for the last 3 days she has had difficulty swallowing anything but putting. States that her pills are getting stuck. Denies any recent illnesses. No nausea no vomiting. She has had pain in her throat with swallowing. No chest pain or shortness of breath. No other complaints. She is on a PPI at home. Pt Subjective Complaint: Sore throat Onset (ago): day(s) Location: neck Pain Scale: 6 Quality: burning Consistency: constant Improves with: nothing Worsens with: eating Associated symptoms: Reports: denies other symptoms - Related Data Home Medications Medication Instructions Recorded Confirmed Aspirin [Adult Low Dose Aspirin EC] 81 mg PO QAM 10/02/15 02/16/18 Calcium Carbonate/Vitamin D3 2 each PO QAM 10/02/15 02/16/18 [Calcium 600 + Vit D Tablet] Digoxin [Lanoxin] 0.125 mg PO QAM 10/02/15 02/16/18 Furosemide [Lasix] 80 mg PO BID 10/02/15 02/16/18 Levothyroxine [Synthroid] 150 mcg PO QAM 10/02/15 02/16/18 Loratadine [Claritin] 10 mg PO QAM 10/02/15 02/16/18 Nitroglycerin [Nitrostat] 0.4 mg SL Q5M PRN 10/02/15 02/16/18 Omeprazole [PriLOSEC] 40 mg PO BID 10/02/15 02/16/18 Warfarin [Coumadin] 2.5 mg PO DAILY 10/02/15 02/16/18 diazePAM [Valium] 10 mg PO BID PRN 10/02/15 02/16/18 Carvedilol 3.125 mg PO BID 01/12/17 02/16/18 Insulin Lispro Protamin/Lispro 10 unit SQ QPM 01/12/17 02/16/18 [Humalog Mix 75-25 Vial] Insulin Lispro Protamin/Lispro 17 unit SQ QAM 01/12/17 02/16/18 [Humalog Mix 75-25 Vial] Oxygen 2 l NS AD 02/16/17 02/16/18 metOLazone [Zaroxolyn] 2.5 mg PO Q48H 02/16/17 02/16/18 Spironolactone [Aldactone] 50 mg PO BID 02/16/18 02/16/18 Previous Rx's Medication Instructions Recorded Magnesium Oxide [Magnesium] 400 mg PO BID #60 tablet 02/23/17 Sucralfate [Carafate] 1 gm PO QID #120 tablet 02/23/17 Allergies Allergy/AdvReac Type Severity Reaction Status Date / Time metoprolol Allergy Anaphylaxis Verified 02/16/18 16:54 Oxycodone [From Percocet] AdvReac Intermediate See Verified 02/16/18 16:54 Comments fenofibrate [From Tricor] AdvReac Gastrointestinal Verified 02/16/18 16:54 Upset dye Allergy Anaphylaxis Uncoded 02/16/18 16:54 vicodin AdvReac Intermediate See Uncoded 02/16/18 16:54 Comments All systems ED: reviewed and negative except as stated. Constitutional: Denies: fever ENT ED: Reports: throat pain, dysphagia Cardiovascular: Denies: chest pain Respiratory: Denies: dyspnea Gastrointestinal: Denies: nausea, vomiting Past Medical History - Past Medical History Attestation: Yes The following information was validated with the patient. Source: patient Medical history: Reports: arthritis, atrial fibrillation, cancer, cardiomyopathy , CHF, coronary artery disease, CVA, diabetes, GERD, hyperlipidemia, hypertension, malignancy, osteoporosis, renal disease, thyroid disease, TIA, valvular heart disease Surgical history: Reports: cancer surgery, coronary bypass (CABG), pacemaker/ AICD, other, AICD, pacemaker Psychiatric history: Reports: no psych history LOGGING SUPERINTENDENT history: Reports: no LOGGING SUPERINTENDENT history - Social History Smoking Status: Never smoker Smokeless Tobacco Status: No Alcohol use: Reports: none Drug use: Reports: none Physical Exam - General Limitations: no limitations General appearance: alert, in no apparent distress - Head Head exam: atraumatic, normocephalic - Eye Eye exam: Present: normal appearance - ENT ENT exam: normal exam, normal oropharynx - Neck Neck exam: Present: normal inspection, full ROM - Chest Chest inspection: Present: normal inspection, symmetric chest wall rise - Respiratory Respiratory exam: Present: normal lung sounds bilaterally - Cardiovascular Cardiovascular exam: Present: regular rate, normal rhythm, normal heart sounds - Abdominal Exam Abdominal exam: Present: soft, Non-Tender. Absent: tenderness, distention, rigidity - Extremities Exam Extremities exam: Present: normal inspection, full ROM - Expanded Upper Extremity Exam Shoulder exam: Present: normal inspection, full ROM Arm exam: Present: normal inspection, full ROM Elbow exam: Present: normal inspection, full ROM Forearm/Wrist exam: Present: normal inspection, full ROM Hand exam: Present: normal inspection, full ROM - Expanded Lower Extremity Exam Hip/Pelvis exam: Present: normal inspection, full ROM Upper leg exam: Present: normal inspection, full ROM Knee exam: Present: normal inspection, full ROM Lower leg exam: Present: normal inspection, full ROM Ankle exam: Present: normal inspection, full ROM Foot/toe exam: Present: normal inspection, full ROM - Skin Skin exam: Present: warm, dry Course Course Narrative: Patient seen and examined. No difficulty handling secretions here. Reviewed her prior records demonstrating erosive esophagitis on prior EGD roughly 1 year ago. Plan to repeat basic labs, INR since she is on Coumadin and dig levels for digoxin. We will give her some IV fluids, PPI and likely admission. - Reevaluation(s) Reevaluation #1: Discussed labs with the patient. Plan to admit. Tolerated crushed ice chips here only. Elevated troponin. No chest pain. No ischemic findings on EKG. We will hold with aspirin and she is having esophagitis symptoms Vital Signs Temperature 97.5 F L 02/16/18 14:57 Pulse Rate 100 02/16/18 14:57 Respiratory Rate 14 02/16/18 14:57 Blood Pressure 84/59 02/16/18 14:57 O2 Sat by Pulse Oximetry 96 02/16/18 14:57 Temperature 97.5 F L 02/16/18 17:28 Pulse Rate 87 05/30/18 18:00 Respiratory Rate 14 02/16/18 20:28 Blood Pressure 116/73 02/16/18 20:28 O2 Sat by Pulse Oximetry 96 02/16/18 18:00 Oxygen Delivery Oxygen Delivery Room Air Medical Decision Making - MDM Narrative Medical decision making narrative: 82-year-old female with intolerance of oral intake for 3 days. Prior history of erosive esophagitis. She is hyponatremic, hypokalemic with an acute kidney injury. Patient given 500 mL IV fluid bolus as well as on maintenance. Potassium replenished. Received PPI in the emergency department. Elevated troponin with a nonischemic EKG and no chest pain. Admitted to the hospitalist. - Lab Data Lab results reviewed: Yes I reviewed the patient's lab results. Result diagrams: 02/16/18 17:14 02/16/18 18:25 Lab Results 02/16/18 02/16/18 02/16/18 Range/Units 17:14 17:14 17:14 WBC 11.8 H (4.3-11.1) K/mcL RBC 5.22 H (3.82-4.97) M/mcL Hgb 15.1 (11.5-15.4) g/dL Hct 41.6 (35.3-44.9) % MCV 79.7 L (83.0-100.0) fL MCH 28.9 (28.0-33.3) pg MCHC 36.3 H (31.6-35.5) g/dL RDW 13.4 (11.5-14.5) % Plt Count 238 (140-400) K/mcL MPV 10.5 (9.4-12.4) fL Immature Gran % 0.3 (0-4) % Seg Neutrophils % 78.4 % Lymphocytes % 12.7 % Monocytes % 8.1 % Eosinophils % 0.2 % Basophils % 0.3 % Neutrophils # 9.3 H (1.6-8.9) K/mcL Lymphocytes # 1.5 (0.6-4.6) K/mcL Monocytes # 1.0 (0.0-1.3) K/mcL Eosinophils # 0.0 (0.0-0.6) K/mcL Basophils # 0.0 (0.0-0.2) K/mcL PT 22.2 H (9.4-12.1) Seconds INR 2.0 Sodium Cancelled Potassium Cancelled Chloride Cancelled Carbon Dioxide Cancelled BUN Cancelled Creatinine Cancelled Est GFR ( Amer) Cancelled Est GFR (Non-Af Amer) Cancelled BUN/Creatinine Ratio Cancelled Glucose Cancelled Calculated Osmolality Cancelled Calcium Cancelled Troponin I 0.09 H* (< 0.04) ng/mL Digoxin 2.0 (0.8-2.0) ng/mL Specimen Rejected 02/16/18 02/16/18 Range/Units 18:01 18:25 WBC (4.3-11.1) K/mcL RBC (3.82-4.97) M/mcL Hgb (11.5-15.4) g/dL Hct (35.3-44.9) % MCV (83.0-100.0) fL MCH (28.0-33.3) pg MCHC (31.6-35.5) g/dL RDW (11.5-14.5) % Plt Count (140-400) K/mcL MPV (9.4-12.4) fL Immature Gran % (0-4) % Seg Neutrophils % % Lymphocytes % % Monocytes % % Eosinophils % % Basophils % % Neutrophils # (1.6-8.9) K/mcL Lymphocytes # (0.6-4.6) K/mcL Monocytes # (0.0-1.3) K/mcL Eosinophils # (0.0-0.6) K/mcL Basophils # (0.0-0.2) K/mcL PT (9.4-12.1) Seconds INR Sodium 123 L Potassium 3.0 L Chloride 83 L Carbon Dioxide 27 BUN 81 H Creatinine 1.50 H Est GFR ( Amer) 40 L Est GFR (Non-Af Amer) 33 L BUN/Creatinine Ratio 54 H Glucose 201 H Calculated Osmolality 286 Calcium 9.5 Troponin I (< 0.04) ng/mL Digoxin (0.8-2.0) ng/mL Specimen Rejected Hemolyzed - Radiology Data Radiology results reviewed: Yes I reviewed the patient's radiology results. Chest X-Ray 02/16/18 16:53 IMPRESSION: No acute cardiopulmonary abnormality. D/ / Valdo Camarena MD / Valdo Camarena MD Interpreting Provider: Valdo Camarena MD - EKG Data EKG #1 EKG attestation: Yes I reviewed and interpreted this EKG. EKG results narrative: EKG demonstrates a ventricular paced rhythm with a rate of 89 bpm. Prolonged QRS duration of 217. Nonspecific ST-T wave changes secondary to likely paced rhythm. No gross elevations or depressions. S.B.A.R. - S.Bianka.A.RRenan Situation: Demographics, MOA Background: Presenting Complaint, Relevant PMH, Meds, & Allergies Assessment: Vital Signs, Course and respsone to treatment, Exam Concerns, Patient/Family Expectation, Pertinant Lab Results, Outstanding Labs Recommendation: Barrier(s) to disposition, Recommendation based on pending studies, treatments, or consults S.B.A.RRenan Report Given to: Dr. Rosalio HuertaAJamal Repor Time: 20:05
[2018-02-16 17:37] LABS: Prothrombin Time 22.2 Seconds (9.4-12.1)
--- NOTE | 2018-02-16 17:46 | Emergency Department Note ---
Disposition Clinical Impression: Elevated troponin, Acute kidney injury, Hypokalemia, Hyponatremia, Esophagitis Disposition: Admitted As Inpatient Condition: Good General Adult HPI - General Chief complaint: ED Upper Respiratory Infection Stated complaint: sore throat, esophagus pain Time Seen by Provider: 02/16/18 16:39 Source: patient Mode of arrival: private vehicle Limitations: no limitations - History of Present Illness Pain Scale: 6 - Related Data Home Medications Medication Instructions Recorded Confirmed Aspirin [Adult Low Dose Aspirin EC] 81 mg PO QAM 10/02/15 02/16/18 Calcium Carbonate/Vitamin D3 2 each PO QAM 10/02/15 02/16/18 [Calcium 600 + Vit D Tablet] Digoxin [Lanoxin] 0.125 mg PO QAM 10/02/15 02/16/18 Furosemide [Lasix] 80 mg PO BID 10/02/15 02/16/18 Levothyroxine [Synthroid] 150 mcg PO QAM 10/02/15 02/16/18 Loratadine [Claritin] 10 mg PO QAM 10/02/15 02/16/18 Nitroglycerin [Nitrostat] 0.4 mg SL Q5M PRN 10/02/15 02/16/18 Omeprazole [PriLOSEC] 40 mg PO BID 10/02/15 02/16/18 Warfarin [Coumadin] 2.5 mg PO DAILY 10/02/15 02/16/18 diazePAM [Valium] 10 mg PO BID PRN 10/02/15 02/16/18 Carvedilol 3.125 mg PO BID 01/12/17 02/16/18 Insulin Lispro Protamin/Lispro 10 unit SQ QPM 01/12/17 02/16/18 [Humalog Mix 75-25 Vial] Insulin Lispro Protamin/Lispro 17 unit SQ QAM 01/12/17 02/16/18 [Humalog Mix 75-25 Vial] Oxygen 2 l NS AD 02/16/17 02/16/18 metOLazone [Zaroxolyn] 2.5 mg PO Q48H 02/16/17 02/16/18 Spironolactone [Aldactone] 50 mg PO BID 02/16/18 02/16/18 Previous Rx's Medication Instructions Recorded Magnesium Oxide [Magnesium] 400 mg PO BID #60 tablet 02/23/17 Sucralfate [Carafate] 1 gm PO QID #120 tablet 02/23/17 Allergies Allergy/AdvReac Type Severity Reaction Status Date / Time metoprolol Allergy Anaphylaxis Verified 02/16/18 16:54 Oxycodone [From Percocet] AdvReac Intermediate See Verified 02/16/18 16:54 Comments fenofibrate [From Tricor] AdvReac Gastrointestinal Verified 02/16/18 16:54 Upset dye Allergy Anaphylaxis Uncoded 02/16/18 16:54 vicodin AdvReac Intermediate See Uncoded 02/16/18 16:54 Comments Past Medical History - Past Medical History Medical history: Reports: arthritis, atrial fibrillation, cancer, cardiomyopathy , CHF, coronary artery disease, CVA, diabetes, GERD, hyperlipidemia, hypertension, malignancy, osteoporosis, renal disease, thyroid disease, TIA, valvular heart disease Surgical history: Reports: cancer surgery, coronary bypass (CABG), pacemaker/ AICD, other, AICD, pacemaker Psychiatric history: Reports: no psych history CORE INSPECTOR history: Reports: no CORE INSPECTOR history - Social History Smoking Status: Never smoker Smokeless Tobacco Status: No Alcohol use: Reports: none Drug use: Reports: none Physical Exam - General Limitations: no limitations General appearance: alert Course Vital Signs Temperature 97.5 F L 02/16/18 14:57 Pulse Rate 100 02/16/18 14:57 Respiratory Rate 14 02/16/18 14:57 Blood Pressure 84/59 02/16/18 14:57 O2 Sat by Pulse Oximetry 96 02/16/18 14:57 Temperature 97.5 F L 02/16/18 17:28 Pulse Rate 87 02/16/18 18:00 Respiratory Rate 14 02/16/18 20:28 Blood Pressure 116/73 02/16/18 20:28 O2 Sat by Pulse Oximetry 96 02/16/18 18:00 Oxygen Delivery Oxygen Delivery Room Air Medical Decision Making - Lab Data Result diagrams: 02/16/18 17:14 02/16/18 18:25 Lab Results 02/16/18 02/16/18 02/16/18 Range/Units 17:14 17:14 17:14 WBC 11.8 H (4.3-11.1) K/mcL RBC 5.22 H (3.82-4.97) M/mcL Hgb 15.1 (11.5-15.4) g/dL Hct 41.6 (35.3-44.9) % MCV 79.7 L (83.0-100.0) fL MCH 28.9 (28.0-33.3) pg MCHC 36.3 H (31.6-35.5) g/dL RDW 13.4 (11.5-14.5) % Plt Count 238 (140-400) K/mcL MPV 10.5 (9.4-12.4) fL Immature Gran % 0.3 (0-4) % Seg Neutrophils % 78.4 % Lymphocytes % 12.7 % Monocytes % 8.1 % Eosinophils % 0.2 % Basophils % 0.3 % Neutrophils # 9.3 H (1.6-8.9) K/mcL Lymphocytes # 1.5 (0.6-4.6) K/mcL Monocytes # 1.0 (0.0-1.3) K/mcL Eosinophils # 0.0 (0.0-0.6) K/mcL Basophils # 0.0 (0.0-0.2) K/mcL PT 22.2 H (9.4-12.1) Seconds INR 2.0 Sodium Cancelled Potassium Cancelled Chloride Cancelled Carbon Dioxide Cancelled BUN Cancelled Creatinine Cancelled Est GFR ( Amer) Cancelled Est GFR (Non-Af Amer) Cancelled BUN/Creatinine Ratio Cancelled Glucose Cancelled Calculated Osmolality Cancelled Calcium Cancelled Troponin I 0.09 H* (< 0.04) ng/mL Digoxin 2.0 (0.8-2.0) ng/mL Specimen Rejected 02/16/18 02/16/18 Range/Units 18:01 18:25 WBC (4.3-11.1) K/mcL RBC (3.82-4.97) M/mcL Hgb (11.5-15.4) g/dL Hct (35.3-44.9) % MCV (83.0-100.0) fL MCH (28.0-33.3) pg MCHC (31.6-35.5) g/dL RDW (11.5-14.5) % Plt Count (140-400) K/mcL MPV (9.4-12.4) fL Immature Gran % (0-4) % Seg Neutrophils % % Lymphocytes % % Monocytes % % Eosinophils % % Basophils % % Neutrophils # (1.6-8.9) K/mcL Lymphocytes # (0.6-4.6) K/mcL Monocytes # (0.0-1.3) K/mcL Eosinophils # (0.0-0.6) K/mcL Basophils # (0.0-0.2) K/mcL PT (9.4-12.1) Seconds INR Sodium 123 L Potassium 3.0 L Chloride 83 L Carbon Dioxide 27 BUN 81 H Creatinine 1.50 H Est GFR ( Amer) 40 L Est GFR (Non-Af Amer) 33 L BUN/Creatinine Ratio 54 H Glucose 201 H Calculated Osmolality 286 Calcium 9.5 Troponin I (< 0.04) ng/mL Digoxin (0.8-2.0) ng/mL Specimen Rejected Hemolyzed Attestation Statement - Attestation Attestation: I examined this patient and my medical decision-making was reviewed with the Resident Physician. I agree with the documented findings, disposition and treatment plan as described except to the extent set forth below. Patient to the ED with a chief complaint of painful swallowing. Unable to swallow solids. Onset a few days ago. Patient has a history of esophagitis and states this feels similar but worse. States her pills are sticking in her throat. Unable to swallow pudding. Patient is in no distress on examination with a soft abdomen. Lungs clear. She is not drooling or stridorous. Plan. Basic labs chest x-ray. The patient's workup shows an elevated troponin. Her troponin is chronically elevated. I believe that aspirin would be more harm than benefit at this point. Patient has acute kidney injury likely prerenal from decreased by mouth intake. She is given IV hydration here. Admitted to medicine.
[2018-02-16] MEDS ORDERED: Famotidine 20 MG/2 ML VIAL IVP ONE (17:53)
[2018-02-16 18:49] LABS: Calcium 9.5 mg/dL (8.6-10.3)
[2018-02-16] MEDS ORDERED: 0.9 % Sodium Chloride 1,000 ML IVC SCH (19:00)
--- NOTE | 2018-02-16 21:05 | Internal Med History&Physical ---
Date of Encounter: 02/16/18 Time of Encounter: 21:00 Internal Medicine - H&P: HPI History of present illness: Ms. Mosley is a 82 year old female who has history of esophagitis, CABG ,CHF status post pacer and defibrillator, atrial fibrillation on Coumadin, diabetes type II on insulin who presents with three-day history of globus sensation and unable to swallow food leading to anorexia with high risk for dehydration. On review of medical history in the chart she appeared to have similar symptoms in January 2017 where she was admitted and seen by Dr. Wong of surgery. During that consultation she received an upper GI endoscopy with a diagnosis of esophagitis - that was distal location and described as severe. She appears to have recurrence of her symptoms for the past 3 days. Her primary care doctor sent her to urgent care but with no improvement symptoms leading to ER admission. Specifically she was not able to eat for 3 days and she was only able to consume a cup of pudding and she will crushed ice as encouraged by her dtr. She is unable to swallow pills and describes a globus sensation on swallowing and that something is stuck. EKG personally reviewed with rate of 89, ventricular pacing FINDINGS: Monitor wires project over the thorax. Left chest wall cardiac device is present. Status post median sternotomy and CABG. Lungs are clear. No focal airspace consolidation. No pleural effusion or pneumothorax. XR/XR chest 1V portable IMPRESSION: No acute cardiopulmonary abnormality. Past Med Surg Social Fam HX - Past Medical History Medical history: arthritis, atrial fibrillation, cancer, cardiomyopathy, CHF, coronary artery disease, CVA, diabetes, GERD, hyperlipidemia, hypertension, malignancy, osteoporosis, renal disease, thyroid disease, TIA, valvular heart disease Additional medical history: skin cancer Psychiatric history: no psych history - Past Surgical History Surgical History: cancer surgery, coronary bypass (CABG), pacemaker/AICD, other , AICD, pacemaker Additional surgical history: throat surgery for polyps, CABG X2, skin cancer surgery - Social History Smoking Status: Never smoker Smokeless Tobacco Status: No Alcohol use: none Drug use: none - Family History Mother Living Status: Hx Family Cardiac Disorders: Yes Hx Family Endocrine Disorder: Yes (DM) Father Living Status: Hx Family Cardiac Disorders: Yes Hx Family Endocrine Disorder: Yes (DM) Internal Medicine - H&P: Meds Aspirin [Adult Low Dose Aspirin EC] 81 mg PO QAM 10/02/15 [History] Calcium Carbonate/Vitamin D3 [Calcium 600 + Vit D Tablet] 2 each PO QAM [History] Digoxin [Lanoxin] 0.125 mg PO QAM 10/02/15 [History] Furosemide [Lasix] 80 mg PO BID 10/02/15 [History] Levothyroxine [Synthroid] 150 mcg PO QAM 10/02/15 [History] Loratadine [Claritin] 10 mg PO QAM 10/02/15 [History] Nitroglycerin [Nitrostat] 0.4 mg SL Q5M PRN 10/02/15 [History] Omeprazole [PriLOSEC] 40 mg PO BID 10/02/15 [History] Warfarin [Coumadin] 2.5 mg PO DAILY 10/02/15 [History] diazePAM [Valium] 10 mg PO BID PRN 10/02/15 [History] Carvedilol 3.125 mg PO BID 01/12/17 [History] Insulin Lispro Protamin/Lispro [Humalog Mix 75-25 Vial] 10 unit SQ QPM 01/12/17 [History] Insulin Lispro Protamin/Lispro [Humalog Mix 75-25 Vial] 17 unit SQ QAM 01/12/17 [History] Oxygen 2 l NS AD 02/16/17 [History] metOLazone [Zaroxolyn] 2.5 mg PO Q48H 02/16/17 [History] Magnesium Oxide [Magnesium] 400 mg PO BID #60 tablet 02/23/17 [Rx] Sucralfate [Carafate] 1 gm PO QID #120 tablet 02/23/17 [Rx] Spironolactone [Aldactone] 50 mg PO BID 02/16/18 [History] 3 Allergy/AdvReac Type Severity Reaction Status Date / Time metoprolol Allergy Anaphylaxis Verified 02/16/18 16:54 Oxycodone [From Percocet] AdvReac Intermediate See Verified 02/16/18 16:54 Comments fenofibrate [From Tricor] AdvReac Gastrointestinal Verified 02/16/18 16:54 Upset dye Allergy Anaphylaxis Uncoded 02/16/18 16:54 vicodin AdvReac Intermediate See Uncoded 02/16/18 16:54 Comments All Systems PM: A 10-system review of systems was performed and is negative for pertinent findings except as documented above in the HPI. Review of systems: ROS 14 point review of systems reviewed as best as possible given presentation. Pertinent positive or negative as per HPI or otherwise reviewed as negative - Constitutional Vitals: Temp Pulse Resp BP Pulse Ox 97.5 F L 87 14 116/73 96 02/16/18 17:28 02/16/18 18:00 02/16/18 20:28 02/16/18 20:28 02/16/18 18:00 Exam: General - AAO x 3 Psych - Appropriate affect/speech. No agitation Eyes - SYBIL. Eye lids intact. No scleral icterus Neuro - No gross peripheral or central neuro deficits on inspection Heart - sternotomy scar. Sinus. RRR. S1 and S2 present. No added HS/murmurs appreciated. No elevated JVD appreciated. Lung - Adequate air entry b/l, No crackles/wheezes appreciated GI - Soft, non-tender. No hepatosplenomegaly/ascites. BS+ - No CVA/suprapubic tenderness or palpable bladder distension Skin - Intact. No rash/petechiae/ecchymosis. Warm extremities MSK - Joints with normal ROM. No joint swellings Internal Med - H&P Results - Labs CBC & Chem 7: 02/16/18 17:14 02/16/18 18:25 - Assessment and plan (1) Dysphagia Current Visit: Yes Status: Acute Assessment and plan: Has a history of dysphagia secondary to esophagitis last year. Had received upper GI evaluation by Dr. Wong last year. I had discussed this case with Dr. Wong who suggested that an alternate legal consultant be asked to evaluate patient as he is not director of retention and do not have an established relationship with patient We would therefore put in a non-emergent consult for GI in the morning Nothing by mouth for now, speech evaluation, Hold by mouth meds given severity of symptoms We would start empiric PPI IV twice a day therapy to see if this would improve symptoms Qualifiers: Dysphagia type: other dysphagia Qualified Code(s): R13.19 - Other dysphagia (2) Electrolyte abnormality Current Visit: Yes Status: Acute Assessment and plan: 2/2 dysphagia and poor PO intake IVF with potassium, empiric IV Mg trend labs running IVF at 50cc/hr due to hx of cardiomyopathy and CHF to avoid overshoot vol overload (3) Esophagitis Current Visit: Yes Status: Acute Assessment and plan: History of esophagitis that is severe described last year January 2017 (4) Cardiac enzymes elevated Current Visit: No Status: Acute Assessment and plan: No overt ACS noted Possible type II Trend Troponin (5) Esophagitis, reflux Current Visit: No Status: Acute (6) Type 2 diabetes mellitus Current Visit: No Status: Acute Assessment and plan: Low-dose insulin sliding scale for now given nothing by mouth status Qualifiers: Diabetes mellitus termite inspector insulin use: with termite inspector use Diabetes mellitus complication status: with unspecified complications Qualified Code(s) : E11.8 - Type 2 diabetes mellitus with unspecified complications; Z79.4 - intermediate (current) use of insulin (7) Atrial fibrillation Current Visit: No Status: Chronic Assessment and plan: Hold warfarin for now. Due to dysphagia and high risk for choking Would monitor closely. IV dig, hold oral BB, prn IV dilt as needed Qualifiers: Atrial fibrillation type: permanent Qualified Code(s): I48.2 - Chronic atrial fibrillation (8) Ischemic cardiomyopathy Current Visit: No Status: Chronic Assessment and plan: hold lasix, gentle IVF, watch closely for vol overload (9) Hypothyroid Current Visit: Yes Status: Acute Assessment and plan: synthroid IV Qualifiers: Hypothyroidism type: acquired Qualified Code(s): E03.9 - Hypothyroidism, unspecified (10) Congestive cardiomyopathy Current Visit: Yes Status: Acute Assessment and plan: hold lasix due to above. watch closely for vol overload - Time Spent With Patient Total time spent is greater than 50% in coordination of care (as documented) at patient's floor/unit and/or counseling patient:
[2018-02-16] MEDS ORDERED: Naloxone 0.4 MG/ML INJ IVP PRN (21:20)
[2018-02-16 21:21] LABS: Troponin I 0.09 ng/mL (< 0.04)
[2018-02-16] MEDS ORDERED: D5% in Water 1,000 ML IVC PRN (21:28)
[2018-02-16] MEDS ORDERED: *HR* Dextrose 50 % in Water (Syg) 50 ML SYRINGE IVP PRN (21:28)
[2018-02-16] MEDS ORDERED: Dextrose Gel 15 GM/37.5 ML TUBE PO PRN ×2 (21:28)
[2018-02-16] MEDS: Pantoprazole 40 MG VIAL IVP SCH (22:15)
[2018-02-16] MEDS: 0.9 % Sodium Chloride w KCl 40 MEQ/1,000 ML MLS IVC SCH (22:16)
[2018-02-17] MEDS: Insulin LISPRO 300 UNITS/3 ML VIAL SQ SCH ×5 (00:45→21:03)
[2018-02-17] MEDS: Levothyroxine Sodium 100 MCG VIAL IVP SCH (05:58)
[2018-02-17] MEDS: *HR* Enoxaparin 30 MG/0.3 ML SYRINGE SQ SCH (05:58)
[2018-02-17 06:14] LABS: Calcium 9.5 mg/dL (8.6-10.3); Magnesium 2.6 mg/dL (1.6-2.6); Potassium 3.1 mEq/L (3.5-5.1)
[2018-02-17 06:16] LABS: Troponin I 0.1 ng/mL (< 0.04)
--- NOTE | 2018-02-17 07:19 | Electrocardiograph Report ---
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
[2018-02-17] MEDS ORDERED: Potassium Chloride Elixir 20 MEQ/15 ML UDC PO ONE ×2 (08:08→11:27)
[2018-02-17] MEDS ORDERED: Potassium Chloride 40 MEQ, Lidocaine 1% 2 ML in D5% in Water 500 ML IVPB ONE (08:09)
[2018-02-17] MEDS: *HR* Digoxin 0.5 MG/2 ML AMPUL IVP SCH (08:56)
[2018-02-17] MEDS: Pantoprazole 40 MG VIAL IVP SCH ×2 (08:56→17:27)
--- NOTE | 2018-02-17 11:53 | Internal Med Progress Note ---
Date of Encounter: 02/17/18 Time of Encounter: 11:45 - Assessment and plan (1) Esophagitis Current Visit: Yes Status: Suspected Assessment and plan: Patient presents with three-week history of dysphasia History of esophagitis, reporting symptoms over last 3-4 weeks similar to prior presentation of esophagitis She reports that she is unable to swallow pills and describes a globus sensation on swallowing Speech therapy has seen and evaluated the patient, no swelling deficits identified, start diet ordered GI to see in consultation-awaiting further recommendations Continue empiric PPI IV twice a day (2) Dysphagia Current Visit: Yes Status: Acute Assessment and plan: See above Qualifiers: Dysphagia type: other dysphagia Qualified Code(s): R13.19 - Other dysphagia (3) Atrial fibrillation Current Visit: No Status: Chronic Assessment and plan: Patient with history of A. fib, takes warfarin at home Warfarin was being held due to dysphagia and high risk for choking Patient remains rate controlled Continuous telemetry Continue monitor closely, Restart medications upon further recommendations from GI Qualifiers: Atrial fibrillation type: permanent Qualified Code(s): I48.2 - Chronic atrial fibrillation (4) Ischemic cardiomyopathy Current Visit: No Status: Chronic Assessment and plan: Continue to hold lasix, gentle IVF, watch closely for vol overload (5) Cardiac enzymes elevated Current Visit: No Status: Acute Assessment and plan: Troponins elevated, peaked at 0.10 No overt ACS noted Possible type II Trend Troponin (6) Type 2 diabetes mellitus Current Visit: No Status: Acute Assessment and plan: Currently on Low-dose insulin sliding scale Continue, adequate blood glucose control Qualifiers: Diabetes mellitus buttermaker insulin use: with buttermaker use Diabetes mellitus complication status: with unspecified complications Qualified Code(s) : E11.8 - Type 2 diabetes mellitus with unspecified complications; Z79.4 - residential (current) use of insulin (7) Esophagitis, reflux Current Visit: No Status: Acute Assessment and plan: GI consult, awaiting further recommendations (8) Hypothyroid Current Visit: Yes Status: Acute Assessment and plan: Continue synthroid IV, changed to oral Synthroid depending on GI recommendations Qualifiers: Hypothyroidism type: acquired Qualified Code(s): E03.9 - Hypothyroidism, unspecified (9) Electrolyte abnormality Current Visit: Yes Status: Acute Assessment and plan: 2/2 dysphagia and poor PO intake Continue to monitor electrolytes, replete as necessary, trend labs running IVF at 50cc/hr due to hx of cardiomyopathy and CHF to avoid overshoot vol overload (10) Congestive cardiomyopathy Current Visit: Yes Status: Acute Assessment and plan: hold lasix due to above. watch closely for vol overload No signs or symptoms of volume overload - Time Spent With Patient Total time spent is greater than 50% in coordination of care (as documented) at patient's floor/unit and/or counseling patient: 25 - 35 minutes - Subjective Interval history: Ms. Mosley is an 82 year old female who presents with three-day history of globus sensation and unable to swallow food leading to anorexia with high risk for dehydration. Patient has prior history of esophagitis reports that these are similar to her prior symptoms. Continue to have difficulty swallowing this morning. Reports that it is improving - Constitutional Vitals: Temp Pulse Resp BP Pulse Ox 97.7 F 70 16 97/60 95 02/17/18 07:05 02/17/18 07:05 02/17/18 07:05 02/17/18 07:05 02/17/18 09:09 - Head Head exam: Present: atraumatic, normocephalic - Eye Eye exam: Present: PERRL, conjuntiva pink, sclera anicteric Pupils: Present: PERRL - Neck Neck exam general surgery: Present: supple, trachea midline. Absent: lymphadenopathy - Respiratory Respiratory exam: Present: CTAB. Absent: accessory muscle use, rales, rhonchi, wheezes - Cardiovascular Cardiovascular exam: Present: RRR, +S1, +S2. Absent: diastolic murmur, gallop, rubs, systolic murmur - GI/Abdominal GI/Abdominal exam: Present: normal bowel sounds, soft, no peritoneal signs. Absent: distended, tenderness - Extremities Exam Extremities exam: Present: warm, radial pulses palpable and symmetrical. Absent : calf tenderness, cyanotic, pedal edema - Neurological Exam Neurological exam: Present: CN II-XII intact, oriented X3, no focal deficits. Absent: pronater drift, facial droop, speech deficit - Skin Skin exam: Present: dry, intact Internal Medicine: Result - Labs CBC & Chem 7: 02/16/18 17:14 02/17/18 04:50 Labs: BMP 02/17/18 04:50 Sodium 128 L Potassium 3.1 L Chloride 88 L Carbon Dioxide 27 BUN 69 H Creatinine 1.11 Glucose 156 H Calcium 9.5 Cardiac Enzymes 02/16/18 02/17/18 Range/Units 21:50 04:50 Troponin I 0.08 H* 0.10 H* (< 0.04) ng/mL - ABG Interpretation ABG results: PT/INR, D-dimer PT 22.2 Seconds (9.4-12.1) H 02/16/18 17:14 Consult Discharge Plan - Plan Referrals: Ary Aponte MD [Primary Care Provider] - 02/23/18 10:45 am
--- NOTE | 2018-02-17 16:19 | Gastroenterology Consult Note ---
<DuarteTyrell Leach - Last Filed: 02/17/18 16:11> Date of Encounter: 02/17/18 Time of Encounter: 11:40 - Assessment and plan (1) Dysphagia Current Visit: No Status: Acute Assessment and plan: Plan for EGD tomorrow with possible dilation to r/o stricture, esophagitis, gastritis, duodenitis, PUD, MW tear, or AVM. Qualifiers: Dysphagia type: unspecified Qualified Code(s): R13.10 - Dysphagia, unspecified (2) Esophagitis Current Visit: Yes Status: Acute Assessment and plan: Continue PPI and plan for EGD tomorrow. NPO at midnight. - Time Spent With Patient Total time spent is greater than 50% in coordination of care (as documented) at patient's floor/unit and/or counseling patient: GI History of Present Illness - Data of Consult Patient: new to practice Consult date: 02/17/18 Requesting Physician: Jed Santamaria MD - Consult Narrative Reason for consult: Dysphagia History of present illness: Ms. Mosley is a 82 year old female with PMHx of esophagitis, CABG, CHF, s/p pacemaker and defibrillator, A fib on Coumadin, DM, who presented with three- day history of globus sensation and unable to swallow food leading to anorexia. On review of medical history in the chart she appeared to have similar symptoms in January 2017 where she was admitted and seen by Dr. Wong, and EGD revealed distal esophagitis. She reports she was unable to eat fot 3 days prior to admission due to the dysphagia. She reports being unable to swallow pills and describes a globus sensation on swallowing and that something is stuck. CXR showed no acute abnormality. Procedures: EGD 02/16/2017 Dr. Wong: With distal LA Grade C esophagitis and gastritis. NSAIDs: ASA Anticoagulation: Coumadin Past Med Surg Social Fam HX - Past Medical History Medical history: arthritis, atrial fibrillation, cancer, cardiomyopathy, CHF, coronary artery disease, CVA, diabetes, GERD, hyperlipidemia, hypertension, malignancy, osteoporosis, renal disease, thyroid disease, TIA, valvular heart disease Additional medical history: skin cancer Psychiatric history: no psych history - Past Surgical History Surgical History: cancer surgery, coronary bypass (CABG), pacemaker/AICD, other , AICD, pacemaker Additional surgical history: throat surgery for polyps, CABG X2, skin cancer surgery - Social History Smoking Status: Never smoker Smokeless Tobacco Status: No Alcohol use: none Drug use: none - Family History Mother Living Status: Hx Family Cardiac Disorders: Yes Hx Family Endocrine Disorder: Yes (DM) Father Living Status: Hx Family Cardiac Disorders: Yes Hx Family Endocrine Disorder: Yes (DM) - Gastrointestinal Gastrointestinal: Present: as per HPI - Constitutional Constitutional: as per HPI - EENT Eyes: as per HPI Ears: Present: as per HPI Nose, mouth and throat: Present: as per HPI - Cardiovascular Cardiovascular ROS: Present: as per HPI - Respiratory Respiratory IM: Present: as per HPI - Genitourinary Genitourinary: Absent: change in color, Urinary frequency - Neurological ROS Neurological GI: Present: as per HPI - Hematologic/Lymphatic Hematologic/Lymphatic pediatric: Present: as per HPI - Musculoskeletal Musculoskeletal ROS GI: Present: as per HPI - Integumentary Integumentary GI: Present: as per HPI - Psychiatric ROS Psychiatric GI: Present: as per HPI - Endocrine Endocrine IM: Present: as per HPI - Constitutional Vitals: Temp Pulse Resp BP Pulse Ox 98.2 F 70 16 99/61 95 02/17/18 15:38 02/17/18 15:38 02/17/18 15:38 02/17/18 15:38 02/17/18 15:38 General appearance: Present: cooperative, A&O X 3, no acute distress, answers questions appropriately - Head Head exam: Present: atraumatic, normocephalic - Eye Eye exam: Present: normal appearance, sclera anicteric - ENT ENT exam: Present: mucous membranes dry - Neck Neck exam general surgery: Present: normal inspection, trachea midline - Respiratory Respiratory exam: Present: CTAB. Absent: rales, rhonchi - Cardiovascular Cardiovascular exam: Present: RRR, +S1, +S2 - GI/Abdominal GI/Abdominal exam: Present: soft, no peritoneal signs. Absent: distended, firm , guarding, tenderness - Rectal Rectal exam: Present: deferred - Extremities Exam Extremities exam: Present: warm - Neurological Exam Neurological exam: Present: no focal deficits - Psychiatric Psychiatric exam: Present: normal affect, normal mood - Skin Skin exam: Present: dry, intact, normal color, warm Results - Labs CBC & Chem 7: 02/16/18 17:14 02/17/18 04:50 Labs: Last Result Calcium 9.5 mg/dL (8.6-10.3) 02/17/18 04:50 Troponin I 0.07 ng/mL (< 0.04) H* 02/17/18 12:48 Entire Visit Hgb 15.1 g/dL (11.5-15.4) 02/16/18 17:14 Hct 41.6 % (35.3-44.9) 02/16/18 17:14 PT 22.2 Seconds (9.4-12.1) H 02/16/18 17:14 - ABG ABG results: PT/INR, D-dimer PT 22.2 Seconds (9.4-12.1) H 02/16/18 17:14 Consult Discharge Plan - Plan Referrals: Ary Aponte MD [Primary Care Provider] - 02/23/18 10:45 am <Benito Armas - Last Filed: 02/18/18 04:21> Date of Encounter: 02/17/18 - Time Spent With Patient Total time spent is greater than 50% in coordination of care (as documented) at patient's floor/unit and/or counseling patient: GI History of Present Illness - Data of Consult Requesting Physician: Jed Santamaria MD - Consult Narrative History of present illness: Ms. Mosley is a 82 year old female - Constitutional Vitals: Temp Pulse Resp BP Pulse Ox 97.9 F 71 15 96/56 98 02/18/18 03:15 02/18/18 03:15 02/18/18 03:15 02/18/18 03:15 02/18/18 03:15 Results - Labs CBC & Chem 7: 02/16/18 17:14 02/17/18 04:50 Labs: Last Result Calcium 9.5 mg/dL (8.6-10.3) 02/17/18 04:50 Troponin I 0.07 ng/mL (< 0.04) H* 02/17/18 12:48 Entire Visit Hgb 15.1 g/dL (11.5-15.4) 02/16/18 17:14 Hct 41.6 % (35.3-44.9) 02/16/18 17:14 PT 22.2 Seconds (9.4-12.1) H 02/16/18 17:14 - ABG ABG results: PT/INR, D-dimer PT 22.2 Seconds (9.4-12.1) H 02/16/18 17:14 - Attending Attestation 80-year-old female with dysphagia agree with an upper endoscopy with possible dilation tomorrow. Thank you for this consultation I have personally performed a face to face evaluation on this patient. I have reviewed and agree with the care plan. History and Exam by me shows:
[2018-02-17] MEDS ORDERED: Insulin LISPRO 300 UNITS/3 ML VIAL SQ SCH (16:30)
[2018-02-17] MEDS: 0.9 % Sodium Chloride w KCl 40 MEQ/1,000 ML MLS IVC SCH (20:21)
[2018-02-18] MEDS: *HR* Enoxaparin 30 MG/0.3 ML SYRINGE SQ SCH (04:46)
[2018-02-18] MEDS: Levothyroxine Sodium 100 MCG VIAL IVP SCH (04:47)
[2018-02-18] MEDS: Pantoprazole 40 MG VIAL IVP SCH (05:10)
[2018-02-18] MEDS ORDERED: *HR* Etomidate 40 MG/20 ML VIAL IVP ONE (06:42)
[2018-02-18] MEDS ORDERED: *HR* Propofol 200 MG/20 ML VIAL IVP ONE (06:42)
[2018-02-18] MEDS ORDERED: Lidocaine -MPF 2% 2 ML VIAL ONE (06:48)
[2018-02-18 07:20] LABS: BUN/Creatinine Ratio 43 (6-26); Blood Urea Nitrogen 42 mg/dL (8-23); Calcium 9.1 mg/dL (8.6-10.3); Carbon Dioxide 26 mEq/L (23-29); Chloride 103 mEq/L (98-107); Glucose 145 mg/dL (70-105); Magnesium 2.4 mg/dL (1.6-2.6); Osmolality,Calculated 293 (280-300); Potassium 4.3 mEq/L (3.5-5.1); Sodium 135 mEq/L (136-145); eGFR For African Americans > 60 (> 60); eGFR For Non-African Americans 55 (> 60)
[2018-02-18] MEDS ORDERED: *HR* FentaNYL (PF) 100 MCG/2 ML VIAL ONE (07:20)
[2018-02-18] MEDS ORDERED: *HR* Midazolam HCl 5 MG/5 ML VIAL IVP ONE (07:20)
--- NOTE | 2018-02-18 07:31 | Anesthesia Evaluation PreOp ---
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 History: TIA Other Medical History: Renal (CRD), Diabetes Type II, Thyroid, GERD, Other ( Skin CA) Anesthesia History: No Prior Anesthetic Complications, Past Anesthesia (Throat sx) : No Alcohol Use: none Drug use: none Medications and Allergies Aspirin [Adult Low Dose Aspirin EC] 81 mg PO QAM 10/02/15 [History] Calcium Carbonate/Vitamin D3 [Calcium 600 + Vit D Tablet] 2 each PO QAM [History] Digoxin [Lanoxin] 0.125 mg PO QAM 10/02/15 [History] Furosemide [Lasix] 80 mg PO BID 10/02/15 [History] Levothyroxine [Synthroid] 150 mcg PO QAM 10/02/15 [History] Loratadine [Claritin] 10 mg PO QAM 10/02/15 [History] Nitroglycerin [Nitrostat] 0.4 mg SL Q5M PRN 10/02/15 [History] Omeprazole [PriLOSEC] 40 mg PO BID 10/02/15 [History] Warfarin [Coumadin] 2.5 mg PO DAILY 10/02/15 [History] diazePAM [Valium] 10 mg PO BID PRN 10/02/15 [History] Carvedilol 3.125 mg PO BID 01/12/17 [History] Insulin Lispro Protamin/Lispro [Humalog Mix 75-25 Vial] 10 unit SQ QPM 01/12/17 [History] Insulin Lispro Protamin/Lispro [Humalog Mix 75-25 Vial] 17 unit SQ QAM 01/12/17 [History] Oxygen 2 l NS AD 02/16/17 [History] metOLazone [Zaroxolyn] 2.5 mg PO Q48H 02/16/17 [History] Magnesium Oxide [Magnesium] 400 mg PO BID #60 tablet 02/23/17 [Rx] Sucralfate [Carafate] 1 gm PO QID #120 tablet 02/23/17 [Rx] Spironolactone [Aldactone] 50 mg PO BID 02/16/18 [History] 3 Allergy/AdvReac Type Severity Reaction Status Date / Time metoprolol Allergy Anaphylaxis Verified 02/16/18 16:54 Oxycodone [From Percocet] AdvReac Intermediate See Verified 02/16/18 16:54 Comments fenofibrate [From Tricor] AdvReac Gastrointestinal Verified 02/16/18 16:54 Upset dye Allergy Anaphylaxis Uncoded 02/16/18 16:54 vicodin AdvReac Intermediate See Uncoded 02/16/18 16:54 Comments - Meds/Allergy Pre-op Review Medications Reviewed: Yes Allergies Reviewed: Yes Beta Blockers on Current Med List: No Anesthesia Results - Labs 02/18/18 06:13 02/18/18 06:13 Echo with Imaging Enhancement Agent Name: Wally Nash Mosley Date of Study: 01/13/2017 Impressions: LVEF 25%. Mildly dilated left ventricle. Severe global and segmental left ventricular systolic dysfunction. Indeterminate diastolic function. Mildly dilated right ventricle. Mild right ventricular hypokinesis. Severely dilated left atrium. Severely dilated right atrium. Severe mitral regurgitation. Moderate-severe tricuspid regurgitation. Severe pulmonary hypertension. Estimated RVSP is > 80 mmHg. - Imaging EKG: report reviewed (ELECTRONIC VENTRICULAR PACEMAKER UNCERTAIN UNDERLYING RHYTHM PROBABLY ATRIAL FIBRILLATION) Anesthesia Exam O2 Sat Weight 50 kg O2 Sat by Pulse Oximetry 95 O2 Sat by Pulse Oximetry 98 O2 Sat by Pulse Oximetry 95 O2 Sat by Pulse Oximetry 96 O2 Sat by Pulse Oximetry 95 O2 Sat by Pulse Oximetry 95 O2 Sat by Pulse Oximetry 95 Vital Signs Temp Pulse Resp BP Pulse Ox 97.5 F L 100 14 84/59 96 02/16/18 14:57 02/16/18 14:57 02/16/18 14:57 02/16/18 14:57 02/16/18 14:57 Vital Signs/O2 Sat, Most Current Temp Pulse Resp BP Pulse Ox 97.4 F L 70 16 105/62 95 02/18/18 06:38 02/18/18 06:38 02/18/18 06:38 02/18/18 06:38 02/18/18 06:38 NPO (# of Hours): > 8 Hrs Pain Scale: 0 Pain Scale Used: Numeric (1 - 10) - HEENT Pupil (Motor): Pupils equal, EOMI Mallampati: II Teeth: Poor dentition - FACILITIES AND GROUNDS DIRECTOR LOC: Oriented FACILITIES AND GROUNDS DIRECTOR Motor: Normal RUE, Normal LUE, Normal RLE, Normal LLE, Normal Face FACILITIES AND GROUNDS DIRECTOR Sensory: Normal: RUE, LUE, RLE, LLE, Face - Cardiac Rhythm: Irregular Murmur: None JVD: No Carotid Bruit: No - Pulmonary Breath Sounds: bilateral Clear Respiratory Effort: Symmetrical Anesthesia Assess/Plan ASA Score: 4 Modified Kashif Scale for Level of Consciousness: Cooperative, oriented, and tranquil Anesthetic Plan: MAC Autologous Blood: Yes Monitoring Plan: Standard Monitors Recovery Plan: Other
[2018-02-18] MEDS: Insulin LISPRO 300 UNITS/3 ML VIAL SQ SCH ×4 (07:41→22:02)
[2018-02-18 07:50] LABS: Basophils % 0.7 %; Eosinophils # 0.2 K/mcL (0.0-0.6); Eosinophils % 2.5 %; Hematocrit 37.4 % (35.3-44.9); Immature Granulocytes % 0.2 % (0-4); Lymphocytes # 1.4 K/mcL (0.6-4.6); Lymphocytes % 24.3 %; Mean Corpuscular HGB Conc 33.2 g/dL (31.6-35.5); Mean Corpuscular Hemoglobin 27.9 pg (28.0-33.3); Mean Corpuscular Volume 84.2 fL (83.0-100.0); Mean Platelet Volume 10.1 fL (9.4-12.4); Monocytes # 0.8 K/mcL (0.0-1.3); Monocytes % 12.8 %; Neutrophils # 3.5 K/mcL (1.6-8.9); Platelet Count 177 K/mcL (140-400); Red Blood Count 4.44 M/mcL (3.82-4.97); Segmented Neutrophils % 59.5 %
[2018-02-18 07:55] LABS: Hemoglobin 12.4 g/dL (11.5-15.4)
[2018-02-18] MEDS ORDERED: *HR* Phenylephrine 10 MG/ML VIAL ONE (08:08)
[2018-02-18] MEDS ORDERED: Tetracaine/Benzocaine/Butamben 200MG/SPRAY (100SPY/BOT) MM ONE (09:08)
[2018-02-18] MEDS: *HR* Digoxin 0.5 MG/2 ML AMPUL IVP SCH (10:17)
[2018-02-18] MEDS ORDERED: diazePAM 10 MG TABLET PO PRN (12:38)
[2018-02-18 13:21] LABS: INR 1.9; Prothrombin Time 21.2 Seconds (9.4-12.1)
[2018-02-18] MEDS: metOLazone 2.5 MG TABLET PO SCH (15:41)
[2018-02-18] MEDS: Sucralfate 1 GM TABLET PO SCH ×3 (15:41→22:00)
[2018-02-18] MEDS ORDERED: Furosemide 40 MG TABLET PO SCH (17:00)
--- NOTE | 2018-02-18 18:49 | Internal Med Progress Note ---
Date of Encounter: 02/18/18 Time of Encounter: 18:46 - Assessment and plan (1) Esophagitis Current Visit: Yes Status: Ruled-out Assessment and plan: Patient presents with three-week history of dysphasia History of esophagitis, reporting symptoms over last 3-4 weeks similar to prior presentation of esophagitis She reports that she is unable to swallow pills and describes a globus sensation on swallowing This morning she is reporting pressure-like sensation upper midsternum as well as throat EGD completed today found to be negative for esophagitis; consider other causes Speech therapy has seen and evaluated the patient, no swallowing deficits identified, start diet ordered Continue empiric PPI IV twice a day (2) Dysphagia Current Visit: Yes Status: Acute Assessment and plan: Oral medications resumed See above Qualifiers: Dysphagia type: other dysphagia Qualified Code(s): R13.19 - Other dysphagia (3) Atrial fibrillation Current Visit: No Status: Chronic Assessment and plan: Patient with history of A. fib, takes warfarin at home Warfarin was being held due to dysphagia and high risk for choking Patient remains rate controlled Resume Coumadin per PT, PT/INR drawn, INR 1.9 therapeutic level is 2-3 Continuous telemetry Continue monitor closely Qualifiers: Atrial fibrillation type: permanent Qualified Code(s): I48.2 - Chronic atrial fibrillation (4) Ischemic cardiomyopathy Current Visit: No Status: Chronic Assessment and plan: Continue to hold lasix, gentle IVF, watch closely for vol overload (5) Cardiac enzymes elevated Current Visit: No Status: Acute Assessment and plan: Troponin trended down to 0.06 No overt ACS noted Given that she has pressure in the esophagus and upper sternum we will rule out cardiac cause Stress test in the morning Patient agrees to stress test (6) Type 2 diabetes mellitus Current Visit: No Status: Acute Assessment and plan: Continue Low-dose insulin sliding scale Continue, adequate blood glucose control Qualifiers: 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 insulin 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: with fpc use Diabetes mellitus complication status: with unspecified complications Qualified Code(s) : E11.8 - Type 2 diabetes mellitus with unspecified complications; Z79.4 - senior living (current) use of insulin (7) Esophagitis, reflux Current Visit: No Status: Acute Assessment and plan: See above (8) Hypothyroid Current Visit: Yes Status: Acute Assessment and plan: DC IV Synthroid and restart oral Synthroid Qualifiers: Hypothyroidism type: acquired Qualified Code(s): E03.9 - Hypothyroidism, unspecified (9) Electrolyte abnormality Current Visit: Yes Status: Acute Assessment and plan: 2/2 dysphagia and poor PO intake Continue to monitor electrolytes, replete as necessary, trend labs Magnesium and potassium improved (10) Congestive cardiomyopathy Current Visit: Yes Status: Acute Assessment and plan: Continue to hold lasix due to above. watch closely for vol overload Consider restarting diuretics in the morning No signs or symptoms of volume overload - Time Spent With Patient Total time spent is greater than 50% in coordination of care (as documented) at patient's floor/unit and/or counseling patient: 25 - 35 minutes - Subjective Interval history: No acute changes, continuing to report pressure-like sensation and lump on the upper mid sternum and throat - Constitutional Vitals: Temp Pulse Resp BP Pulse Ox 97.6 F 70 18 111/67 95 02/18/18 18:40 02/18/18 18:40 02/18/18 18:40 02/18/18 18:40 02/18/18 18:40 General appearance: Present: A&O X 3 - Head Head exam: Present: atraumatic, normocephalic - Eye Eye exam: Present: PERRL, conjuntiva pink, sclera anicteric Pupils: Present: PERRL - Neck Neck exam general surgery: Present: supple, trachea midline. Absent: lymphadenopathy - Respiratory Respiratory exam: Present: CTAB. Absent: accessory muscle use, rales, rhonchi, wheezes - Cardiovascular Cardiovascular exam: Present: RRR, +S1, +S2. Absent: diastolic murmur, gallop, rubs, systolic murmur - GI/Abdominal GI/Abdominal exam: Present: normal bowel sounds, soft, no peritoneal signs. Absent: distended, tenderness - Extremities Exam Extremities exam: Present: warm, radial pulses palpable and symmetrical. Absent : calf tenderness, cyanotic, pedal edema - Neurological Exam Neurological exam: Present: CN II-XII intact, oriented X3, no focal deficits. Absent: pronater drift, facial droop, speech deficit - Skin Skin exam: Present: dry, intact Internal Medicine: Result - Labs CBC & Chem 7: 02/18/18 06:13 02/18/18 06:13 Labs: Short CBC 02/18/18 Range/Units 06:13 WBC 5.9 (4.3-11.1) K/mcL Hgb 12.4 D (11.5-15.4) g/dL Hct 37.4 (35.3-44.9) % Plt Count 177 (140-400) K/mcL Neutrophils # 3.5 (1.6-8.9) K/mcL BMP 02/18/18 06:13 Sodium 135 L Potassium 4.3 Chloride 103 Carbon Dioxide 26 BUN 42 H Creatinine 0.97 Glucose 145 H Calcium 9.1 Cardiac Enzymes 02/18/18 Range/Units 12:59 Troponin I 0.06 H* (< 0.04) ng/mL - ABG Interpretation ABG results: PT/INR, D-dimer PT 21.2 Seconds (9.4-12.1) H 02/18/18 12:59 Consult Discharge Plan - Plan Referrals: Ary Aponte MD [Primary Care Provider] - 02/23/18 10:45 am
[2018-02-18] MEDS: Magnesium Oxide 400 MG TABLET PO SCH (22:01)
[2018-02-19 04:57] LABS: Basophils % 0.4 %; Eosinophils # 0.2 K/mcL (0.0-0.6); Eosinophils % 2.3 %; Hematocrit 38.2 % (35.3-44.9); Immature Granulocytes % 0.3 % (0-4); Lymphocytes # 1.8 K/mcL (0.6-4.6); Lymphocytes % 24.3 %; Mean Corpuscular Hemoglobin 28.4 pg (28.0-33.3); Mean Corpuscular Volume 83.4 fL (83.0-100.0); Mean Platelet Volume 9.9 fL (9.4-12.4); Monocytes # 0.8 K/mcL (0.0-1.3); Monocytes % 10.9 %; Neutrophils # 4.6 K/mcL (1.6-8.9); Platelet Count 186 K/mcL (140-400); Red Blood Count 4.58 M/mcL (3.82-4.97); Red Cell Distribution Width 14.2 % (11.5-14.5); Segmented Neutrophils % 61.8 %
[2018-02-19 05:12] LABS: BUN/Creatinine Ratio 31 (6-26); Blood Urea Nitrogen 28 mg/dL (8-23); Calcium 9.4 mg/dL (8.6-10.3); Carbon Dioxide 27 mEq/L (23-29); Chloride 99 mEq/L (98-107); Glucose 114 mg/dL (70-105); Magnesium 1.8 mg/dL (1.6-2.6); Osmolality,Calculated 284 (280-300); Potassium 3.3 mEq/L (3.5-5.1); Sodium 134 mEq/L (136-145); eGFR For African Americans > 60 (> 60); eGFR For Non-African Americans > 60 (> 60)
[2018-02-19] MEDS ORDERED: Regadenoson 0.4 MG/5 ML SYRINGE IVP ONE (06:47)
[2018-02-19] MEDS: Insulin LISPRO 300 UNITS/3 ML VIAL SQ SCH ×4 (07:40→21:23)
[2018-02-19] MEDS: Aspirin Enteric Coated 81 MG Tablet PO SCH (08:28)
[2018-02-19] MEDS: Furosemide 40 MG TABLET PO SCH ×2 (08:28→17:27)
[2018-02-19] MEDS: *HR* Digoxin 0.125 MG TABLET PO SCH (08:29)
[2018-02-19] MEDS: Magnesium Oxide 400 MG TABLET PO SCH ×2 (08:29→21:19)
[2018-02-19] MEDS: Cholecalciferol (D-3) 1,000 UNIT TABLET PO SCH (08:29)
[2018-02-19] MEDS: Sucralfate 1 GM TABLET PO SCH ×4 (08:30→21:19)
--- NOTE | 2018-02-19 10:55 | Discharge Summary ---
- NOTES TO OUTPATIENT PROVIDER Notes to Outpatient Provider: Admitted for suspected esophagitis and dysphagia. Modified barium swallow completed, no risk for aspiration per MBS. EGD completed no esophagitis found. Continue to having mild globus sensation. Reports that it is improving. Patient instructed to follow-up with PCP within 1 week of discharge. Throughout the stay was noted to have hypokalemia. We will thought to be caused by patient's home diuretic dose. Oral potassium supplementation added. A follow-up potassium lab work within 3 days of discharge. Follow results Orders not resulted at time of discharge: Pending orders 02/19/18 07:51 EV echocardiogram Routine 02/20/18 04:00 Complete Blood Count [HEME] AM 0400 Date of Encounter: 02/19/18 Time of Encounter: 10:53 - Discharge Diagnosis (1) Esophagitis Priority: Primary Status: Ruled-out Assessment and Plan: Patient presents with three-week history of dysphasia History of esophagitis, reporting symptoms over last 3-4 weeks similar to prior presentation of esophagitis She reports that she is unable to swallow pills and describes a globus sensation on swallowing This morning she is reporting pressure-like sensation upper midsternum as well as throat EGD completed today found to be negative for esophagitis; consider other causes Speech therapy has seen and evaluated the patient, no swallowing deficits identified, start diet ordered Continue empiric PPI IV twice a day Patient is being discharged in stable medical condition. Uneventful hospital course. She is instructed to follow-up with PCP within 1 week of discharge. Additionally, instructed to return to the ED should problems worsen. She has been offered home health services throughout the stay however, declines. She was discharged home with assistance from family (2) Dysphagia Priority: Secondary Status: Acute Assessment and Plan: Oral medications resumed Dysphasia improving See above Qualifiers: Dysphagia type: other dysphagia Qualified Code(s): R13.19 - Other dysphagia (3) Atrial fibrillation Priority: Secondary Status: Chronic Assessment and Plan: Patient with history of A. fib, takes warfarin at home Warfarin was being held due to dysphagia and high risk for choking Patient remains rate controlled Redraw INR now, follow results. Discharge if INR therapeutic Continue Coumadin at discharge, to be managed per PCP and Coumadin clinic Qualifiers: Atrial fibrillation type: permanent Qualified Code(s): I48.2 - Chronic atrial fibrillation (4) Ischemic cardiomyopathy Priority: Secondary Status: Chronic (5) Cardiac enzymes elevated Priority: Secondary Status: Acute Assessment and Plan: Troponin trended down to 0.06 No overt ACS noted Given that she has pressure in the esophagus and upper sternum we will rule out cardiac cause Echocardiogram-results pending Please follow up with patient the result of echocardiogram during PCP appointment-refer to cardiology if necessary (6) Type 2 diabetes mellitus Priority: Secondary Status: Acute Assessment and Plan: Adequate glucose control on sliding scale throughout his stay Patient started on 70/30 insulin coverage as she is unable to afford her 75/25 She reports the 75/25 insulin is costing her $750 for 90 day supply We were able to get 70/30 for $25 per month She has been instructed to keep a journal of her blood glucose daily He was instructed how and when to monitor for signs and symptoms of hypoglycemia She is instructed to call PCP and/or return to the ED should she become hypoglycemic Additionally, she has been instructed that his vital importance she follow-up with her PCP regarding changes and diabetic medications. 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 Diabetes mellitus complication status: with unspecified complications Qualified Code(s) : E11.8 - Type 2 diabetes mellitus with unspecified complications; Z79.4 - prison (current) use of insulin (7) Esophagitis, reflux Priority: Secondary Status: Ruled-out Assessment and Plan: See above (8) Hypothyroid Priority: Secondary Status: Acute Assessment and Plan: Continue oral Synthroid Qualifiers: Hypothyroidism type: acquired Qualified Code(s): E03.9 - Hypothyroidism, unspecified (9) Electrolyte abnormality Priority: Secondary Status: Acute Assessment and Plan: Hypokalemia noted today with a potassium of 3.3. Patient given 40 and make use of potassium orally this morning Hypokalemia likely caused by home diuretic dose as patient is on potassium wasting diuretic Diuretics will be continued Add potassium supplementation daily Recheck serum potassium within 3 days of discharge Patient acknowledges has been informed that it is vitally important she follow- up with her PCP for reassessment of hypokalemia and the addition of potassium (10) Congestive cardiomyopathy Priority: Secondary Status: Acute Assessment and Plan: No signs or symptoms of volume overload resume diuretics at discharge Hospital course: Ms. Mosley is a 82 year old female Please see assessment and plan for hospital course Discharge discussed with: patient, family, nurse, case management - Time Spent with Patient Total time spent providing and/or coordinating discharge services: Less than 30 minutes - Discharge Medications Prescriptions: Furosemide [Lasix] 40 mg PO BIDDIURETIC 30 Days #60 tablet Home Medications: Aspirin [Adult Low Dose Aspirin EC] 81 mg PO QAM 10/02/15 [History] Calcium Carbonate/Vitamin D3 [Calcium 600 + Vit D Tablet] 2 each PO QAM [History] Digoxin [Lanoxin] 0.125 mg PO QAM 10/02/15 [History] Levothyroxine [Synthroid] 150 mcg PO QAM 10/02/15 [History] Loratadine [Claritin] 10 mg PO QAM 10/02/15 [History] Nitroglycerin [Nitrostat] 0.4 mg SL Q5M PRN 10/02/15 [History] Omeprazole [PriLOSEC] 40 mg PO BID 10/02/15 [History] Warfarin [Coumadin] 2.5 mg PO DAILY 10/02/15 [History] diazePAM [Valium] 10 mg PO BID PRN 10/02/15 [History] Carvedilol 3.125 mg PO BID 01/12/17 [History] Oxygen 2 l NS AD 02/16/17 [History] metOLazone [Zaroxolyn] 2.5 mg PO Q48H 02/16/17 [History] Magnesium Oxide [Magnesium] 400 mg PO BID #60 tablet 02/23/17 [Rx] Sucralfate [Carafate] 1 gm PO QID #120 tablet 02/23/17 [Rx] Spironolactone [Aldactone] 50 mg PO BID 02/16/18 [History] Furosemide [Lasix] 40 mg PO BIDDIURETIC 30 Days #60 tablet 02/19/18 [Rx] Insulin NPH/REG 70/30 (HUMAN) [Humulin 70/30 Vial] 5 unit SQ BIDWM 30 Days #1 mls 02/19/18 [Rx] Potassium Chloride 10 meq PO DAILY 30 Days #30 tab.er.prt 02/19/18 [Rx] Allergies/Adverse Reactions: 3 Allergy/AdvReac Type Severity Reaction Status Date / Time metoprolol Allergy Anaphylaxis Verified 02/16/18 16:54 Oxycodone [From Percocet] AdvReac Intermediate See Verified 02/16/18 16:54 Comments fenofibrate [From Tricor] AdvReac Gastrointestinal Verified 02/16/18 16:54 Upset dye Allergy Anaphylaxis Uncoded 02/16/18 16:54 vicodin AdvReac Intermediate See Uncoded 02/16/18 16:54 Comments Date of admission: 02/16/18 21:20 Primary care physician: Ary Aponte Discharging clinician: Jose Hassan Anticipated date of discharge: 02/19/18 - Constitutional Vitals: Temp Pulse Resp BP Pulse Ox 97.5 F L 71 16 101/65 95 02/19/18 07:00 02/19/18 07:00 02/19/18 07:00 02/19/18 07:00 02/19/18 08:32 General appearance: Present: A&O X 3 - Head Head exam: Present: atraumatic, normocephalic - Eye Eye exam: Present: PERRL, conjuntiva pink, sclera anicteric Pupils: Present: PERRL - Neck Neck exam general surgery: Present: supple, trachea midline. Absent: lymphadenopathy - Respiratory Respiratory exam: Present: CTAB. Absent: accessory muscle use, rales, rhonchi, wheezes - Cardiovascular Cardiovascular exam: Present: RRR, +S1, +S2. Absent: diastolic murmur, gallop, rubs, systolic murmur - GI/Abdominal GI/Abdominal exam: Present: normal bowel sounds, soft, no peritoneal signs. Absent: distended, tenderness - Extremities Exam Extremities exam: Present: warm, radial pulses palpable and symmetrical. Absent : calf tenderness, cyanotic, pedal edema - Neurological Exam Neurological exam: Present: CN II-XII intact, oriented X3, no focal deficits. Absent: pronater drift, facial droop, speech deficit - Skin Skin exam: Present: dry, intact - Patient Status Disposition: Home, Self-Care Condition: Good Functional capacity at discharge: uses cane/walker Overall status at discharge: patient is progressing back to baseline - Discharge Instructions Instructions: Pacemaker (DC), Chronic Dysphagia (DC), Diabetes Mellitus Type 2 in Adults (DC) Follow Up With: Ary Aponte MD [Primary Care Provider] - 02/23/18 10:45 am - Diet and Activity Activity: ambulate only with your walker, increase activity as tolerated Diet: advance to your usual diet
[2018-02-19 13:26] LABS: INR 1.9; Prothrombin Time 20.9 Seconds (9.4-12.1)
[2018-02-19] MEDS ORDERED: *HR* Warfarin 2.5 MG TABLET PO SCH (18:00)
[2018-02-20 06:00] LABS: Basophils % 0.4 %; Eosinophils # 0.1 K/mcL (0.0-0.6); Eosinophils % 1.1 %; Hematocrit 38.7 % (35.3-44.9); Hemoglobin 12.9 g/dL (11.5-15.4); Immature Granulocytes % 0.3 % (0-4); Lymphocytes # 1.6 K/mcL (0.6-4.6); Lymphocytes % 22.8 %; Mean Corpuscular HGB Conc 33.3 g/dL (31.6-35.5); Mean Corpuscular Volume 84.1 fL (83.0-100.0); Mean Platelet Volume 10.2 fL (9.4-12.4); Monocytes # 0.6 K/mcL (0.0-1.3); Neutrophils # 4.7 K/mcL (1.6-8.9); Platelet Count 176 K/mcL (140-400); Red Cell Distribution Width 14.2 % (11.5-14.5); Segmented Neutrophils % 66.4 %
[2018-02-20 08:05] LABS: INR 1.7; Prothrombin Time 18.9 Seconds (9.4-12.1)
[2018-02-20] MEDS: Sucralfate 1 GM TABLET PO SCH ×2 (08:39→12:31)
[2018-02-20] MEDS: *HR* Digoxin 0.125 MG TABLET PO SCH (08:39)
[2018-02-20] MEDS: Furosemide 40 MG TABLET PO SCH (08:39)
[2018-02-20] MEDS: Magnesium Oxide 400 MG TABLET PO SCH (08:39)
[2018-02-20] MEDS: Aspirin Enteric Coated 81 MG Tablet PO SCH (08:39)
[2018-02-20] MEDS: Insulin LISPRO 300 UNITS/3 ML VIAL SQ SCH ×2 (08:41→12:31)
[2018-02-20] MEDS: Cholecalciferol (D-3) 1,000 UNIT TABLET PO SCH (08:48)
[2018-02-20] MEDS ORDERED: *HR* Enoxaparin 60 MG/0.6 ML SYRINGE SQ STA (08:53)
--- NOTE | 2018-02-20 10:28 | Event Note ---
Date of Encounter: 02/20/18 Time of Encounter: 10:26 Patient to discharge home yesterday. CT remains a resulted however, no palpitations had a coronary event. She is not having any chest pain, shortness of breath, no ECG changes. Originally admitted with acute kidney injury, likely responsible for elevated troponins. INR still subtherapeutic. Patient taking Coumadin due to paroxysmal A. fib. Currently rate controlled. Stating she always takes a dose of 2.5 mg Coumadin. She follows with her primary care physician Dr. Aponte to have her INR checked monthly. She is instructed to take a 5 mg dose of Coumadin tonight and resume 2.5 mg thereafter. Additionally , she has been informed to get a follow-up INR upon discharge. The patient is instructed to see her PCP within 1 week of discharge. She is medically stable and ready for discharge this morning.
[2018-02-20 10:31] VITALS: BP 111/72
[2018-02-20] MEDS: metOLazone 2.5 MG TABLET PO SCH (12:31)
== END 2018-02-20 14:49 | disposition home or self-care (01) | DRG 392 ==
LOC: EMEROO 14:53 → 3BNU 14:53
PROVIDERS: ADMIT Internal Medicine; ATTEND Internal Medicine

== ENCOUNTER 2019-01-18 10:34 | Observation (INO) ==
--- NOTE | 2019-01-18 10:44 | Emergency Department Note ---
Disposition Clinical Impression: NSTEMI (non-ST elevated myocardial infarction) Disposition: Admitted As Inpatient Condition: Undetermined Time of Disposition: 16:23 SOB HPI - General Stated Complaint: diff breathing Time Seen by Provider: 01/18/19 10:37 Source: patient, EMS Mode of arrival: EMS Limitations: no limitations Nursing Notes Reviewed: Yes Vital Signs Reviewed: Yes - History of Present Illness 83-year-old female past medical history of facial cancer, CHF, diabetes, implantable pacemaker/defibrillator presenting for a gradual progressive worsening 3 day history of chest pain and shortness of breath. Patient would like to receive further information on obtaining a DNR Patient states that she is feeling lightheaded/dizzy, she states that she has had recent constipation which is abnormal for her and additional symptoms mentioned above. Patient currently denies abdominal pain/nausea/vomiting, numbness or paresthesias. Pt Subjective Complaint: shortness of breath, chest pain Onset (ago): day(s) Severity: severe Consistency/Duration: gradually worsening Known history of: congestive heart failure, diabetes Associated symptoms: Reports: chest pain. Denies: fever, parasthesias, nausea/vomiting, abdominal pain Cough present: No - Related Data Home Medications Medication Instructions Recorded Confirmed Aspirin [Adult Low Dose Aspirin EC] 81 mg PO QAM 10/02/15 01/18/19 Calcium Carbonate/Vitamin D3 2 each PO QAM 10/02/15 02/16/18 [Calcium 600 + Vit D Tablet] Digoxin [Lanoxin] 0.125 mg PO QAM 10/02/15 02/16/18 Levothyroxine [Synthroid] 150 mcg PO QAM 10/02/15 01/18/19 Loratadine [Claritin] 10 mg PO QAM 10/02/15 01/18/19 Nitroglycerin [Nitrostat] 0.4 mg SL Q5M PRN 10/02/15 02/16/18 Omeprazole [PriLOSEC] 40 mg PO BID 10/02/15 01/18/19 Warfarin [Coumadin] 2.5 mg PO DAILY 10/02/15 02/16/18 diazePAM [Valium] 10 mg PO BID PRN 10/02/15 01/18/19 Carvedilol 3.125 mg PO BID 01/12/17 01/18/19 Oxygen 2 l NS AD 02/16/17 02/16/18 metOLazone [Zaroxolyn] 2.5 mg PO Q48H 02/16/17 01/18/19 Spironolactone [Aldactone] 50 mg PO BID 02/16/18 01/18/19 Capsaicin 0.025% 1 appl TP BID 01/18/19 01/18/19 Furosemide [Lasix] 40 mg PO HS 01/18/19 01/18/19 Furosemide [Lasix] 80 mg PO QAM 01/18/19 01/18/19 Gabapentin [Neurontin] 100 mg PO HS 01/18/19 01/18/19 Humalog Mix 75-25 Kwikpen 8 units SQ HS 01/18/19 01/18/19 Humalog Mix 75-25 Kwikpen 16 units SQ QAM 01/18/19 01/18/19 Ketoconazole 2% CRM 1 appl TP DAILY 01/18/19 01/18/19 Lactulose 15 ml PO DAILY 01/18/19 01/18/19 Montelukast Sodium [Singulair] 10 mg PO DAILY 01/18/19 01/18/19 Sucralfate [Carafate] 1 gm PO BID 01/18/19 01/18/19 Triamcinolone Acet 0.1% CRM 1 applic TP BID 01/18/19 01/18/19 [Kenalog] Warfarin [Coumadin] 2.5 mg PO 1800 01/18/19 01/18/19 Previous Rx's Medication Instructions Recorded Magnesium Oxide [Magnesium] 400 mg PO BID #60 tablet 02/23/17 Insulin NPH/REG 70/30 (HUMAN) 5 unit SQ BIDWM 30 Days #1 mls 02/19/18 [Humulin 70/30 Vial] Potassium Chloride 10 meq PO DAILY 30 Days #30 02/19/18 tab.er.prt Allergies Allergy/AdvReac Type Severity Reaction Status Date / Time metoprolol Allergy Anaphylaxis Verified 02/16/18 16:54 oxycodone [From Percocet] AdvReac Intermediate See Verified 02/16/18 16:54 Comments fenofibrate [From Tricor] AdvReac Gastrointestinal Verified 02/16/18 16:54 Upset dye Allergy Anaphylaxis Uncoded 02/16/18 16:54 vicodin AdvReac Intermediate See Uncoded 02/16/18 16:54 Comments All systems ED: reviewed and negative except as stated. Review of Systems: As Per HPI Constitutional: Reports: weakness. Denies: fever, chills Cardiovascular: Reports: chest pain Respiratory: Reports: dyspnea Gastrointestinal: Reports: constipation. Denies: abdominal pain, nausea, vomiting, diarrhea, hematemesis, hematochezia Genitourinary: Denies: hematuria Musculoskeletal: Denies: back pain, neck pain Neurological: Reports: weakness. 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 Absent: scleral icterus - Neck Neck exam: Present: normal inspection, trachea midline - Chest Chest inspection: Present: normal inspection, symmetric chest wall rise - Respiratory Respiratory exam: Present: respiratory distress, accessory muscle use, prolonged expiratory phase, other (Diffuse rhonchi and rales noted.) - Cardiovascular Cardiovascular exam: Present: normal rhythm, tachycardia, normal heart sounds, +S1, +S2. Absent: systolic murmur, diastolic murmur, JVD, +S3, +S4 - Abdominal Exam Abdominal exam: Present: soft, Non-Tender, normal bowel sounds. Absent: distent ion, guarding, rebound, rigidity, organomegaly - Extremities Exam Extremities exam: Present: pedal edema (+1 pitting edema in bilateral lower extremities) - Neurological Exam Neurological exam: Present: alert, oriented X3 - Psychiatric Psychiatric exam: Present: normal affect, normal mood - Skin Skin exam: Present: warm, dry, intact, normal color. Absent: rash, cyanosis, diaphoresis, erythema, pallor, mottled Course Course Narrative: Likely CHF exacerbation CBC, BMP, BNP, chest x-ray, EKG, troponin Patient will be admitted to the hospital - Reevaluation(s) Reevaluation #1: EKG shows computer reading of acute MN in the inferior lateral leads. There are hyperacute T-wave changes when compared to old EKG. There are no significant ST segment elevations or depressions that are not seen on prior EKG. We will conserve called cardiology for further recommendations Aspirin and nitroglycerin to be given ED Patient states that she would like to take things "[id number]" regarding her care but clearly states that she does not want intubation or CPR if respiratory or cardiac arrest occurs. Vital Signs Temperature 97.7 F 01/18/19 10:36 Pulse Rate 68 01/18/19 10:36 Respiratory Rate 15 01/18/19 10:36 Blood Pressure 118/68 01/18/19 10:36 O2 Sat by Pulse Oximetry 97 01/18/19 10:36 Temperature 97.9 F 01/18/19 16:20 Pulse Rate 78 01/18/19 16:20 Respiratory Rate 18 01/18/19 16:20 Blood Pressure 125/76 01/18/19 16:20 O2 Sat by Pulse Oximetry 97 01/18/19 11:52 Oxygen Delivery Oxygen Delivery Nasal Cannula Shortness of Breath/Dyspnea - MDM Narrative Medical decision making narrative: Patient admitted to hospitalist medicine service for further evaluation and management of CHF exacerbation and ACS rule out. - Lab Data Lab results reviewed: Yes I reviewed the patient's lab results. Result diagrams: 01/18/19 10:51 01/18/19 10:51 Lab Results 01/18/19 01/18/19 01/18/19 Range/Units 10:51 10:51 10:51 WBC 7.0 (4.3-11.1) K/mcL RBC 4.29 (3.82-4.97) M/mcL Hgb 11.7 (11.5-15.4) g/dL Hct 37.2 (35.3-44.9) % MCV 86.7 (83.0-100.0) fL MCH 27.3 L (28.0-33.3) pg MCHC 31.5 L (31.6-35.5) g/dL RDW 14.6 H (11.5-14.5) % Plt Count 201 (140-400) K/mcL MPV 10.0 (9.4-12.4) fL Immature Gran % 0.3 (0-4) % Seg Neutrophils % 73.8 % Lymphocytes % 18.0 % Monocytes % 6.5 % Eosinophils % 1.0 % Basophils % 0.4 % Neutrophils # 5.2 (1.6-8.9) K/mcL Lymphocytes # 1.3 (0.6-4.6) K/mcL Monocytes # 0.5 (0.0-1.3) K/mcL Eosinophils # 0.1 (0.0-0.6) K/mcL Basophils # 0.0 (0.0-0.2) K/mcL Sodium 134 L (136-145) mEq/L Potassium 4.3 (3.5-5.1) mEq/L Chloride 100 (98-107) mEq/L Carbon Dioxide 24 (23-29) mEq/L BUN 37 H (8-23) mg/dL Creatinine 1.34 H (0.60-1.20) mg/dL Est GFR ( Amer) 46 L (> 60) Est GFR (Non-Af Amer) 38 L (> 60) BUN/Creatinine Ratio 28 H (6-26) Glucose 261 H (70-105) mg/dL Calculated Osmolality 296 (280-300) Calcium 9.6 (8.6-10.3) mg/dL Total Bilirubin 0.6 (0.3-1.0) mg/dL Direct Bilirubin 0.1 (0.0-0.2) mg/dL Indirect Bilirubin 0.5 (0.0-1.2) mg/dL AST 17 (13-39) Units/L ALT 8 (7-52) Units/L Alkaline Phosphatase 110 H (34-104) Units/L Troponin I 0.03 (< 0.04) ng/mL B-Natriuretic Peptide 342 H (Less than 100) pg/mL Serum Total Protein 7.5 (6.4-8.9) g/dL Albumin 4.5 (3.5-5.7) g/dL Globulin 3.0 (2.4-3.5) g/dL Albumin/Globulin Ratio 1.5 (1.1-2.2) - Radiology Data Radiology results reviewed: Yes I reviewed the patient's radiology results. Chest X-Ray 01/18/19 10:37 IMPRESSION: No acute cardiopulmonary process. D/ / 01/18/2019 10:58:25 Tyrell Thapa MD / [facility] Interpreting Provider: Tyrell Thapa MD Echocardiogram 01/18/19 13:41 Impressions: LVEF 20%. Moderately dilated left ventricle. Severe global left ventricular systolic dysfunction. Atypical septal motion consistent with paced rhythm. Indeterminate diastolic function. Mildly dilated right ventricle. Moderate right ventricular hypokinesis. Severely dilated left atrium. Severely dilated right atrium. Mild aortic regurgitation. Severe mitral regurgitation. Mitral valve leaflets are apically displaced due to LV enlargement. Moderate-severe tricuspid regurgitation. Severe pulmonary hypertension. Estimated RVSP is >90 mmHg. A device lead was visualized in the right atrium and right ventricle. Left Ventricular Wall Motion: Rest Echo Findings The apex, apical inferior, mid inferior, basal inferior, apical anterior, mid anterior, basal anterior, apical septal, mid inferior septal, basal inferior septal, apical lateral, mid anterior lateral, basal anterior lateral, mid anterior septal, mid inferior lateral, basal anterior septal and basal inferior lateral banerjee were hypokinetic. Findings: Study Quality * Technically adequate exam. ECG Findings * Paced rhythm. Left Ventricle * LVEF 20%. * Moderately dilated left ventricle. * Severe global left ventricular systolic dysfunction. * Atypical septal motion consistent with paced rhythm. * Indeterminate diastolic function. Right Ventricle * Mildly dilated right ventricle. * Moderate right ventricular hypokinesis. Left Atrium * Severely dilated left atrium. Right Atrium * Severely dilated right atrium. Aortic Valve * Aortic valve not well visualized. * Mild aortic regurgitation. * No aortic stenosis. Mitral Valve * Mitral valve leaflets are apically displaced due to LV enlargement. * Severe mitral regurgitation. * No mitral stenosis. Tricuspid Valve * Normal tricuspid valve structure. * Moderate-severe tricuspid regurgitation. * Severe pulmonary hypertension. * Estimated RVSP is >90 mmHg. * Estimated RA pressure is 10-20 mmHg. Pulmonic Valve * Normal pulmonic valve structure. * Mild pulmonic regurgitation. Aorta * Normally sized aortic root. Pericardium * The pericardium appears normal. IVC * The IVC is dilated. * < 50% respiratory change. Device lead * A device lead was visualized in the right atrium and right ventricle. Pulmonary Artery * Pulmonary artery not well visualized. - EKG Data EKG attestation: Yes I reviewed and interpreted this EKG. EKG results narrative: Patient EKG shows sinus rhythm with ventricular bigeminy left ventricular hypertrophy and concerns for an inferior lateral infarction. Heart rate is 84 bpm, TX interval is 67 bpm QRS duration is 150 ms, QT/QTc interval 45/485 ms, there are no significant ST segment changes or elevations which are acute 20 compared to old EKG, there are hyperacute inverted T waves noted throughout the inferior lateral leads, there are also pathologic Q waves noted in the inferior leads. This EKG shows significant changes when compared to prior EKG on 02/16/2018. We will contact cardiology for consultation at this time.
--- NOTE | 2019-01-18 10:58 | Emergency Department Note ---
Disposition Clinical Impression: NSTEMI (non-ST elevated myocardial infarction) Disposition: Admitted As Inpatient General Adult HPI - General Chief complaint: ED Chest Pain Stated complaint: diff breathing Time Seen by Provider: 01/18/19 10:37 Source: patient, EMS Mode of arrival: EMS Limitations: no limitations Nursing Notes Reviewed: Yes Vital Signs Reviewed: Yes - History of Present Illness HPI Narrative: Attestation note: Patient was seen with the emergency medicine resident/nurse practitioner/physician advertising sales assistant/transitional resident/medical student: Dr. Diaz Lawson I have personally performed a face to face evaluation on this patient. I have reviewed and agree with history and physical examination patient management and disposition. Briefly the salient points of the case are as follows: 83-year-old female history of multiple MIs CHF hypertension by EMS for increasing difficulty in breathing dyspnea on exertion mild chest discomfort. Patient's EKG shows ST depressions consistent with a non-ST elevation NC. Patient will undergo cardiac workup aspirin and nitroglycerin 1 EKG by cardiology. Patient did ask for DNR comfort care arrest. We will see a antique furniture reproducer recommendations are. Patient does live alone. Patient will be admitted. Providing 45 minutes critical care service this patient. Disposition pending Pain Scale: 2 - Related Data Home Medications Medication Instructions Recorded Confirmed Aspirin [Adult Low Dose Aspirin EC] 81 mg PO QAM 10/02/15 02/16/18 Calcium Carbonate/Vitamin D3 2 each PO QAM 10/02/15 02/16/18 [Calcium 600 + Vit D Tablet] Digoxin [Lanoxin] 0.125 mg PO QAM 10/02/15 02/16/18 Levothyroxine [Synthroid] 150 mcg PO QAM 10/02/15 02/16/18 Loratadine [Claritin] 10 mg PO QAM 10/02/15 02/16/18 Nitroglycerin [Nitrostat] 0.4 mg SL Q5M PRN 10/02/15 02/16/18 Omeprazole [PriLOSEC] 40 mg PO BID 10/02/15 02/16/18 Warfarin [Coumadin] 2.5 mg PO DAILY 10/02/15 02/16/18 diazePAM [Valium] 10 mg PO BID PRN 10/02/15 02/16/18 Carvedilol 3.125 mg PO BID 01/12/17 02/16/18 Oxygen 2 l NS AD 02/16/17 02/16/18 metOLazone [Zaroxolyn] 2.5 mg PO Q48H 02/16/17 02/16/18 Spironolactone [Aldactone] 50 mg PO BID 02/16/18 02/16/18 Previous Rx's Medication Instructions Recorded Magnesium Oxide [Magnesium] 400 mg PO BID #60 tablet 02/23/17 Sucralfate [Carafate] 1 gm PO QID #120 tablet 02/23/17 Furosemide [Lasix] 40 mg PO BIDDIURETIC 30 Days #60 02/19/18 tablet Insulin NPH/REG 70/30 (HUMAN) 5 unit SQ BIDWM 30 Days #1 mls 02/19/18 [Humulin 70/ Vial] Potassium Chloride 10 meq PO DAILY 30 Days #30 02/19/18 tab.er.prt Warfarin [Coumadin] 5 mg PO 1800 1 Days #1 tablet 02/20/18 Allergies Allergy/AdvReac Type Severity Reaction Status Date / Time metoprolol Allergy Anaphylaxis Verified 02/16/18 16:54 oxycodone [From Percocet] AdvReac Intermediate See Verified 02/16/18 16:54 Comments fenofibrate [From Tricor] AdvReac Gastrointestinal Verified 02/16/18 16:54 Upset dye Allergy Anaphylaxis Uncoded 02/16/18 16:54 vicodin AdvReac Intermediate See Uncoded 02/16/18 16:54 Comments Constitutional: Reports: weakness. Denies: fever, chills Cardiovascular: Reports: chest pain Respiratory: Reports: dyspnea Gastrointestinal: Reports: constipation. Denies: abdominal pain, nausea, vomiting, diarrhea, hematemesis, hematochezia Genitourinary: Denies: hematuria Musculoskeletal: Denies: back pain, neck pain Neurological: Reports: weakness. Denies: numbness, paresthesias Past Medical History - Past Medical History Medical history: Reports: arthritis, atrial fibrillation, cancer, cardiomyopathy, CHF, coronary artery disease, CVA, diabetes, GERD, hyperlipidemia, malignancy, osteoporosis, thyroid disease, TIA, valvular heart disease Surgical history: Reports: cancer surgery, coronary bypass (CABG), pacemaker/AICD, other, AICD, pacemaker Psychiatric history: Reports: no psych history KEY MAKER history: Reports: no KEY MAKER history - Social History Smoking Status: Former smoker Smokeless Tobacco Status: No Alcohol use: Reports: none Drug use: Reports: none Physical Exam - General Limitations: no limitations General appearance: alert, in distress (Moderate respiratory distress) Course Vital Signs Temperature 97.7 F 01/18/19 10:36 Pulse Rate 68 01/18/19 10:36 Respiratory Rate 15 01/18/19 10:36 Blood Pressure 118/68 01/18/19 10:36 O2 Sat by Pulse Oximetry 97 01/18/19 10:36 Temperature 97.7 F 01/18/19 10:36 Pulse Rate 68 01/18/19 10:36 Respiratory Rate 15 01/18/19 10:36 Blood Pressure 118/68 01/18/19 10:36 O2 Sat by Pulse Oximetry 98 01/18/19 10:44 Oxygen Delivery Oxygen Delivery Nasal Cannula
[2019-01-18] MEDS: Aspirin 81 MG TAB.CHEW PO SCH (11:04)
[2019-01-18] MEDS: Nitroglycerin 0.4 MG TAB.SUBL SL SCH ×3 (11:06→16:18)
[2019-01-18 11:18] LABS: Basophils % 0.4 %; Eosinophils # 0.1 K/mcL (0.0-0.6); Hematocrit 37.2 % (35.3-44.9); Hemoglobin 11.7 g/dL (11.5-15.4); Immature Granulocytes % 0.3 % (0-4); Lymphocytes # 1.3 K/mcL (0.6-4.6); Mean Corpuscular HGB Conc 31.5 g/dL (31.6-35.5); Mean Corpuscular Hemoglobin 27.3 pg (28.0-33.3); Mean Corpuscular Volume 86.7 fL (83.0-100.0); Monocytes # 0.5 K/mcL (0.0-1.3); Monocytes % 6.5 %; Neutrophils # 5.2 K/mcL (1.6-8.9); Platelet Count 201 K/mcL (140-400); Red Blood Count 4.29 M/mcL (3.82-4.97); Red Cell Distribution Width 14.6 % (11.5-14.5); Segmented Neutrophils % 73.8 %
[2019-01-18 11:27] LABS: Calcium 9.6 mg/dL (8.6-10.3); Potassium 4.3 mEq/L (3.5-5.1); Troponin I 0.03 ng/mL (< 0.04)
[2019-01-18] MEDS ORDERED: diazePAM 10 MG/2 ML SYRINGE IVP STA (12:32)
[2019-01-18] MEDS ORDERED: Naloxone 0.4 MG/ML INJ IVP PRN (13:22)
[2019-01-18] MEDS ORDERED: Nitroglycerin 0.4 MG TAB.SUBL SL PRN (13:24)
--- NOTE | 2019-01-18 13:32 | Internal Med History&Physical ---
Date of Encounter: 01/18/19 Time of Encounter: 13:28 Internal Medicine - H&P: HPI Chief complaint: chest pain Admitted From: Home Plans for Post Hospital Care: Home History of present illness: Ms. Mosley is a 83 year old female with history of CAD status post CABG, atrial fibrillation on Coumadin, heart failure reduced EF 30% status post AICD, hypothyroidism, CVAs along with multiple other medical conditions presented to the emergency department with chest pain. As per patient her chest pain started about 3 days ago, located in the left side of her chest and does not radiate. Pain occurs both at rest and on ambulation. She characterizes her pain as discomfort severity is 4 out of 10. Her pain was preceded by shortness of breath which is worsening for the past 3 days. Her shortness of breath occurs both at rest and on ambulation. She was prescribed 2 L of oxygen for her multiple cardiac comorbidities and has not been using her oxygen for the past 2 years however for the past 3 days she had to start using her oxygen both at rest and on ambulation. In addition to shortness of breath she also complains of lower extremity swelling and also increase in abdominal girth. She denies PND or orthopnea. While in the ED her EKG showed hyperacute T waves and cardiology was consulted and recommended conservative management and to follow the troponins. CODE STATUS discussed with the patient and she wishes to be DNR CCA DNI, she would not like to have any further cardiac interventions such as cardiac catheterization. He reports that she is had multiple heart surgeries in the past most of them at [facility] and was told by [place] resident services coordinator that no further interventions can be done with her heart so she wishes not to have any further heart catheterizations. She was endorsed for admission for further management of her CHF. She denies fever, chills, nausea, vomiting, diarrhea, calf tenderness, sick contacts, cold or heat intolerance, palpitations- however she does report that she has a nonproductive cough that started with her symptoms. Past Med Surg Social Fam HX - Past Medical History Medical history: arthritis, atrial fibrillation, cancer, cardiomyopathy, CHF, coronary artery disease, CVA, diabetes, GERD, hyperlipidemia, malignancy, osteoporosis, thyroid disease, TIA, valvular heart disease Additional medical history: skin cancer Psychiatric history: no psych history - Past Surgical History Surgical History: cancer surgery, coronary bypass (CABG), pacemaker/AICD, other, AICD, pacemaker Additional surgical history: throat surgery for polyps, CABG X2, skin cancer surgery - Social History Smoking Status: Former smoker Smokeless Tobacco Status: No Alcohol use: none Drug use: none - Family History Mother Living Status: Hx Family Cardiac Disorders: Yes Hx Family Endocrine Disorder: Yes (DM) Father Living Status: Hx Family Cardiac Disorders: Yes Hx Family Endocrine Disorder: Yes (DM) Internal Medicine - H&P: Meds Aspirin [Adult Low Dose Aspirin EC] 81 mg PO QAM 10/02/15 [History] Calcium Carbonate/Vitamin D3 [Calcium 600 + Vit D Tablet] 2 each PO QAM 10/02/15 [History] Digoxin [Lanoxin] 0.125 mg PO QAM 10/02/15 [History] Levothyroxine [Synthroid] 150 mcg PO QAM 10/02/15 [History] Loratadine [Claritin] 10 mg PO QAM 10/02/15 [History] Nitroglycerin [Nitrostat] 0.4 mg SL Q5M PRN 10/02/15 [History] Omeprazole [PriLOSEC] 40 mg PO BID 10/02/15 [History] Warfarin [Coumadin] 2.5 mg PO DAILY 10/02/15 [History] diazePAM [Valium] 10 mg PO BID PRN 10/02/15 [History] Carvedilol 3.125 mg PO BID 01/12/17 [History] Oxygen 2 l NS AD 02/16/17 [History] metOLazone [Zaroxolyn] 2.5 mg PO Q48H 02/16/17 [History] Magnesium Oxide [Magnesium] 400 mg PO BID #60 tablet 02/23/17 [Rx] Sucralfate [Carafate] 1 gm PO QID #120 tablet 02/23/17 [Rx] Spironolactone [Aldactone] 50 mg PO BID 02/16/18 [History] Furosemide [Lasix] 40 mg PO BIDDIURETIC 30 Days #60 tablet 02/19/18 [Rx] Insulin NPH/REG 70/30 (HUMAN) [Humulin 70/30 Vial] 5 unit SQ BIDWM 30 Days #1 mls 02/19/18 [Rx] Potassium Chloride 10 meq PO DAILY 30 Days #30 tab.er.prt 02/19/18 [Rx] Warfarin [Coumadin] 5 mg PO 1800 1 Days #1 tablet 02/20/18 [Rx] Allergy/AdvReac Type Severity Reaction Status Date / Time metoprolol Allergy Anaphylaxis Verified 02/16/18 16:54 oxycodone [From Percocet] AdvReac Intermediate See Verified 02/16/18 16:54 Comments fenofibrate [From Tricor] AdvReac Gastrointestinal Verified 02/16/18 16:54 Upset dye Allergy Anaphylaxis Uncoded 02/16/18 16:54 vicodin AdvReac Intermediate See Uncoded 02/16/18 16:54 Comments All Systems PM: A 10-system review of systems was performed and is negative for pertinent findings except as documented above in the HPI. - Constitutional Vitals: Temp Pulse Resp BP Pulse Ox 97.7 F 76 20 108/49 97 01/18/19 10:36 01/18/19 11:52 01/18/19 11:52 01/18/19 11:52 01/18/19 11:52 Exam: General: Patient is alert, oriented, no acute distress, speaks in full sentences Head: atraumatic, normocephalic, Eye: normal appearance, PERRL, no scleral icterus, no conjunctival injection ENT: mucous membranes moist, normal external ear exam Neck: normal inspection, trachea midline, full ROM, Chest: normal inspection, symmetric chest rise Respiratory: Good respiratory effort. Bilateral breath sounds are clear without wheezing, crackles, or rhonchi. Cardiovascular: Regular rate and rhythm. s1 and s2 No clicks, rubs, gallops, or murmors. Abdomen: Bowel sounds present normoactive x-4 quadrants. Abdomen is soft, nondistended. no Epigastric tenderness. No guarding or rebound. No organomegaly noted, obese musculoskeletal: Spontaneously moving all extremities. 2+ edema, no calf tenderness Skin: warm, dry, intact. Neuro: Alert and oriented x4. No focal deficit Psych: Patient's affect is normal Internal Med - H&P Results - Labs CBC & Chem 7: 01/18/19 10:51 01/18/19 10:51 Labs: Short CBC 01/18/19 Range/Units 10:51 WBC 7.0 (4.3-11.1) K/mcL Hgb 11.7 (11.5-15.4) g/dL Hct 37.2 (35.3-44.9) % Plt Count 201 (140-400) K/mcL Neutrophils # 5.2 (1.6-8.9) K/mcL BMP 01/18/19 10:51 Sodium 134 L Potassium 4.3 Chloride 100 Carbon Dioxide 24 BUN 37 H Creatinine 1.34 H Glucose 261 H Calcium 9.6 Cardiac Enzymes 01/18/19 Range/Units 10:51 Troponin I 0.03 (< 0.04) ng/mL - Impressions ITS Impressions Chest X-Ray 01/18/19 10:37 IMPRESSION: No acute cardiopulmonary process. D/ / 01/18/2019 10:58:25 Tyrell Thapa MD / kenia Interpreting Provider: Tyrell Thapa MD - Assessment and Plan (1) Acute exacerbation of CHF (congestive heart failure) Current Visit: No Status: Acute Assessment and plan: Acute on chronic heart failure with reduced EF 30% s/p AICD Lasix IV 40 mg daily- watch renal functions- discontinue if creatinine worsens daily weights, strict I/O fluid restriction 1500 ml oxygen via nasal cannula to keep sats >92% consider bipap if she is in respiratory distress. continue ASA, BB hold spironolactone for now while diuresing lipid panel in AM LFTS ordered and abdominal US ( has increased girth, could not appreciate ascites on exam) Qualifiers: Qualified Code(s): I50.43 - Acute on chronic combined systolic (congestive) and diastolic (congestive) heart failure (2) Chest pain Current Visit: Yes Status: Acute Assessment and plan: Most likely secondary to acute CHF exacerbation and underlying CAD Cardiology was consulted and saw the patient along with EKG and recommended to follow troponins for now and continue the home medications along with diuretics. Telemetry monitoring First troponin was negative continue to follow every 6 hours along with EKG Continue with aspirin Nitroglycerin every 5 minutes as needed for chest pain Continue with the beta george lipid panel in the morning Echocardiogram Discussed by myself and by the resident services coordinator on-call and she would not like to pursue any further invasive cardiac interventions /cardiac catheterization Qualifiers: Chest pain type: precordial pain Qualified Code(s): R07.2 - Precordial pain (3) Acute renal failure superimposed on stage 3 chronic kidney disease Current Visit: Yes Status: Acute Assessment and plan: UA, urine electrolytes, urine osmolality Renal ultrasound to rule out hydronephrosis Strict intake and output Daily weights Avoid nephrotoxic medications Follow renal functions closely Qualifiers: Acute renal failure type: unspecified Qualified Code(s): N17.9 - Acute kidney failure, unspecified; N18.3 - Chronic kidney disease, stage 3 (moderate) (4) Atrial fibrillation Current Visit: No Status: Chronic Assessment and plan: Continue with home medications Is on Coumadin (pharmacy to dose) INR stat Qualifiers: Atrial fibrillation type: permanent Qualified Code(s): I48.2 - Chronic atrial fibrillation (5) Advance directive discussed with patient Current Visit: Yes Status: Acute Assessment and plan: Advanced Erbitux discussed with the patient and she wishes to be DNR CCA DNI she would not like to have any further invasive cardiac interventions Emotional support provided (6) IDDM (insulin dependent diabetes mellitus) Current Visit: Yes Status: Acute Assessment and plan: sliding scale insulin - adjust as per fingersticks A1c in AM (7) DVT prophylaxis Current Visit: No Status: Acute Assessment and plan: Continue with Coumadin SCDs - Time Spent With Patient Total time spent is greater than 50% in coordination of care (as documented) at patient's floor/unit and/or counseling patient:
[2019-01-18] MEDS ORDERED: Furosemide 20 MG/2 ML VIAL IVP ONE (13:50)
[2019-01-18] MEDS ORDERED: D5% in Water 1,000 ML IVC PRN (13:57)
[2019-01-18] MEDS ORDERED: Dextrose Gel 15 GM/37.5 ML TUBE PO PRN ×2 (13:57)
[2019-01-18] MEDS ORDERED: *HR* Dextrose 50 % in Water (Syg) 50 ML SYRINGE IVP PRN (13:57)
[2019-01-18] MEDS ORDERED: Perflutren Lipid Microsphere 1.3 ML in 0.9 % Sodium Chloride 8.7 ML IVP ONE (14:47)
--- NOTE | 2019-01-18 14:52 | Cardiology Consult Note ---
Date of Encounter: 01/19/19 Time of Encounter: 12:00 Assessment and Plan (1) NSTEMI (non-ST elevated myocardial infarction) Current Visit: Yes Status: Acute Patient is currently chest pain-free. She states she would not want any cardiac intervention but just wants to be comfortable. Please obtain records of procedure done at [facility]. Meanwhile trend troponin, obtain serial EKG. Continue aspirin 81 mg daily, beta george and statin (2) Ischemic cardiomyopathy Current Visit: No Status: Chronic Status post AICD. Interrogate ICD. Continue guideline directed medical therapy (3) Heart failure with reduced ejection fraction, NYHA class III Current Visit: Yes Status: Acute She needs to be diuresed to improve her symptoms of shortness of breath. Strict inputs and outputs monitoring, fluid restricted low-salt diet. (4) Atrial fibrillation Current Visit: No Status: Chronic Rate controlled. Continue Coreg 3.125 mg twice a day, Coumadin for anticoagulation Qualifiers: Atrial fibrillation type: permanent Qualified Code(s): I48.2 - Chronic atrial fibrillation Discussion w patient/family: The assessment and plan as outlined above was discussed with the patient and/or family members who expressed understanding and agreement. All questions were an swered. Thank you for involving us in the care of your patient. Please call with any questions. History of Present Illness Consult date: 01/18/19 History of present illness: Ms. Mosley is a 83 year old female Ms. Mosley is a very pleasant 83 year old female with history of CAD status post CABG, atrial fibrillation on Coumadin, ischemic cardiomyopathy, HFrEF with EF 30% status post AICD, who presented with left-sided chest pressure 3/10 in intensity, on mild exertion, non-radiating over the past 3 days. Associated shortness of breath with orthopnea, abdominal bloating and lower extremity swelling. She had a cardiac catheterization at [facility] 5 years ago, and was reportedly told that "nothing could be done" for her heart disease Past Med Surg Social Fam HX - Past Medical History Medical history: arthritis, atrial fibrillation, cancer, cardiomyopathy, CHF, coronary artery disease, CVA, diabetes, GERD, hyperlipidemia, malignancy, osteoporosis, thyroid disease, TIA, valvular heart disease Additional medical history: skin cancer Psychiatric history: no psych history - Past Surgical History Surgical History: cancer surgery, coronary bypass (CABG), pacemaker/AICD, other, AICD, pacemaker Additional surgical history: throat surgery for polyps, CABG X2, skin cancer surgery - Social History Smoking Status: Former smoker Smokeless Tobacco Status: No Alcohol use: none Drug use: none - Family History Mother Living Status: Hx Family Cardiac Disorders: Yes Hx Family Endocrine Disorder: Yes (DM) Father Living Status: Hx Family Cardiac Disorders: Yes Hx Family Endocrine Disorder: Yes (DM) Medications and Allergies Levothyroxine [Synthroid] 150 mcg PO QAM 10/02/15 [History] Loratadine [Claritin] 10 mg PO QAM 10/02/15 [History] Warfarin [Coumadin] 2.5 mg PO DAILY 10/02/15 [History] diazePAM [Valium] 10 mg PO BID PRN 10/02/15 [History] Carvedilol 3.125 mg PO BID 01/12/17 [History] Oxygen 2 l NS AD 02/16/17 [History] metOLazone [Zaroxolyn] 2.5 mg PO Q48H 02/16/17 [History] Spironolactone [Aldactone] 50 mg PO BID 02/16/18 [History] Aspirin [Lo-Dose Aspirin EC] 81 mg PO DAILY 01/18/19 [History] Clotrimazole 1% CRM [Lotrimin 1%] 1 appl TP BID PRN 01/18/19 [History] Furosemide [Lasix] 40 mg PO HS 01/18/19 [History] Furosemide [Lasix] 80 mg PO QAM 01/18/19 [History] Insulin Lispro Protamin/Lispro [Humalog Mix 75-25 Kwikpen] 8 units SQ HS 01/18/19 [History] Insulin Lispro Protamin/Lispro [Humalog Mix 75-25 Kwikpen] 16 units SQ QAM 01/18/19 [History] Montelukast Sodium [Singulair] 10 mg PO DAILY 01/18/19 [History] Omeprazole [PriLOSEC] 40 mg PO BID 01/18/19 [History] Sucralfate [Carafate] 1 gm PO BID 01/18/19 [History] Triamcinolone Acet 0.1% CRM [Kenalog] 1 applic TP BID 01/18/19 [History] Allergy/AdvReac Type Severity Reaction Status Date / Time metoprolol Allergy Anaphylaxis Verified 01/18/19 18:59 oxycodone [From Percocet] AdvReac Intermediate See Verified 01/18/19 18:59 Comments fenofibrate [From Tricor] AdvReac Gastrointestinal Verified 01/18/19 18:59 Upset dye Allergy Anaphylaxis Uncoded 01/18/19 18:59 vicodin AdvReac Intermediate See Uncoded 01/18/19 18:59 Comments All Systems Review: The remainder of the systems were reviewed and are negative - Constitutional Constitutional: no fever(s) - EENT Eyes: blurred vision, no loss of vision Nose, mouth and throat: no bleeding gums - Cardiovascular Cardiovascular: as per HPI, no palpitations, no syncope - Respiratory Respiratory: cough, dyspnea, no wheezing - Gastrointestinal Gastrointestinal: no abdominal pain - Genitourinary Genitourinary: no dysuria - Neurological Neurological: no abnormal speech - Hematological/Lymphatic Hematologic/Lymphatic: easy bleeding Physical Examination Vital Signs, Last 4 Hours Pulse Resp BP Pulse Ox 01/18/19 11:52 76 20 108/49 97 01/18/19 11:16 73 22 112/53 97 01/18/19 11:12 69 21 124/67 97 01/18/19 11:07 79 24 111/64 97 General: Conversant Neck: No JVD Cardiac: Normal S1 and S2, No Murmur, Other (Irregularly irregular rate and rhythm) Lungs: No Wheeze, Rales, Rhonchi, Other (Diminished breath sounds bilaterally, no wheezes) Neuro: Alert and responsive Abdomen: Soft, Non-Tender Extremities: Other (3+ bilateral pedal edema) Results 01/19/19 01:53 01/19/19 01:53 Lab Results 01/18/19 01/18/19 01/18/19 10:51 10:51 10:51 WBC 7.0 Hgb 11.7 Hct 37.2 Plt Count 201 Sodium 134 L Potassium 4.3 Chloride 100 Carbon Dioxide 24 BUN 37 H Creatinine 1.34 H Glucose 261 H Calcium 9.6 Troponin I 0.03 B-Natriuretic Peptide 342 H - EKG Interpretation EKG results cardiology: personally reviewed (T wave inversions in the anterolateral leads) Consult Discharge Plan - Plan Referrals: Ary Aponte MD [Primary Care Provider] - (Appointment has been requested. Our offices will call with an appointment time and date.)
[2019-01-18 15:56] LABS: Albumin 4.5 g/dL (3.5-5.7); Albumin/Globulin Ratio 1.5 (1.1-2.2); Bilirubin,Direct 0.1 mg/dL (0.0-0.2); Bilirubin,Indirect 0.5 mg/dL (0.0-1.2); Bilirubin,Total 0.6 mg/dL (0.3-1.0); Total Protein 7.5 g/dL (6.4-8.9)
[2019-01-18 16:14] LABS: INR 2.6; Prothrombin Time 29.2 Seconds (9.4-12.1)
[2019-01-18] MEDS: Insulin LISPRO 300 UNITS/3 ML VIAL SQ SCH ×2 (16:27→20:52)
[2019-01-18] MEDS ORDERED: Warfarin perPT PO PRN (18:00)
[2019-01-18] MEDS ORDERED: *HR* Warfarin 2.5 MG TABLET PO ONE (18:00)
[2019-01-18 18:08] LABS: Bilirubin,Urine Negative (Negative); Blood,Urine Negative (Negative); Clarity,Urine Clear (Clear); Color,Urine Yellow (Yellow); Glucose,Urine (UA) Normal (Normal); Ketones,Urine Negative (Negative); Leukocyte Esterase,Urine Trace (Negative); Nitrite,Urine Negative (Negative); PH,Urine 6.5 pH Units (5.0-8.0); Protein,Urine Negative (Neg-Trace); Specific Gravity,Urine 1.008 (1.010-1.025); Urobilinogen,Urine Normal (Normal)
[2019-01-18 18:09] LABS: Bacteria,Urine None Seen per hpf (None-Few); Hyaline Casts,Urine None Seen per lpf (None-Few); Potassium,Urine 42.7 mEq/L; Squamous Epithelial Cell,Urine Many per lpf (None-Few); WBC,Urine 0-3 per hpf (0-3)
[2019-01-18] MEDS: Furosemide 40 MG/4 ML VIAL IVP SCH (20:32)
[2019-01-18] MEDS: Sucralfate 1 GM TABLET PO SCH (20:32)
[2019-01-18] MEDS: metOLazone 2.5 MG TABLET PO SCH (20:32)
[2019-01-18] MEDS: Gabapentin 100 MG CAPSULE PO SCH (20:32)
[2019-01-18] MEDS: diazePAM 10 MG TABLET PO PRN (22:33)
[2019-01-18] MEDS: Capsaicin 0.025% 60 GM TUBE TP SCH (22:37)
[2019-01-18] MEDS: Triamcinolone Acet 0.1% CRM 15 GM TUBE TP SCH (22:37)
[2019-01-19 02:26] LABS: Basophils % 0.5 %; Eosinophils # 0.1 K/mcL (0.0-0.6); Eosinophils % 1.2 %; Hematocrit 38.5 % (35.3-44.9); Hemoglobin 12.1 g/dL (11.5-15.4); Immature Granulocytes % 0.3 % (0-4); Lymphocytes # 1.8 K/mcL (0.6-4.6); Lymphocytes % 24.3 %; Mean Corpuscular HGB Conc 31.4 g/dL (31.6-35.5); Mean Corpuscular Hemoglobin 27.5 pg (28.0-33.3); Mean Corpuscular Volume 87.5 fL (83.0-100.0); Mean Platelet Volume 10.1 fL (9.4-12.4); Monocytes # 0.6 K/mcL (0.0-1.3); Monocytes % 8.5 %; Neutrophils # 4.9 K/mcL (1.6-8.9); Platelet Count 194 K/mcL (140-400); Red Cell Distribution Width 14.6 % (11.5-14.5); Segmented Neutrophils % 65.2 %
[2019-01-19 02:33] LABS: INR 2.5
[2019-01-19 02:55] LABS: Calcium 9.6 mg/dL (8.6-10.3); Chol/HDL Ratio 6.7 (0-4.9); Magnesium 2.1 mg/dL (1.6-2.6); Potassium 3.6 mEq/L (3.5-5.1); Troponin I 0.04 ng/mL (< 0.04)
[2019-01-19 03:06] LABS: Thyroid Stimulating Hormone 10.325 mcIU/mL (0.340-5.600)
[2019-01-19 04:55] LABS: Estimated Average Glucose 169 mg/dl; Hemoglobin A1C 7.5 %
[2019-01-19] MEDS: Sucralfate 1 GM TABLET PO SCH ×2 (08:37→16:49)
[2019-01-19] MEDS ORDERED: Furosemide 40 MG/4 ML VIAL IVP SCH (09:00)
[2019-01-19] MEDS: Insulin LISPRO 300 UNITS/3 ML VIAL SQ SCH ×4 (09:06→20:19)
--- NOTE | 2019-01-19 09:06 | Internal Med Progress Note ---
<Martin Dias - Last Filed: 01/19/19 12:17> Hospitalist Progress Note - Encounter Date of Encounter: 01/19/19 Time of Encounter: 09:06 - Subjective Interval History: Ms. Mosley is a 83 year old female with history of CAD status post CABG, atrial fibrillation on Coumadin, heart failure reduced EF 30% status post AICD, hypothyroidism, CVAs along with multiple other medical conditions presented to the emergency department with chest pain x 3 days located in the left side of her chest and does not radiate. Pain occurs both at rest and on ambulation. She characterizes her pain as discomfort 4/10, associated with dypsnea. Admits to worsening lower extremity swelling as well. She was prescribed 2 L of oxygen for her multiple cardiac comorbidities and has not been using her oxygen for the past 2 years however for the past 3 days she had to start using her oxygen both at rest and on ambulation. She denies PND or orthopnea. She is on Lasix 80mg AM and 40mg qHS and reports compliance. While in the ED her EKG showed hyperacute T waves and cardiology was consulted and recommended conservative management. Troponins 0.04, 0.04. She is admitted for CHF exacerbation and NSTEMI. CODE STATUS discussed with the patient and she wishes to be DNR CCA DNI, she would not like to have any further cardiac interventions such as cardiac catheterization. He reports that she is had multiple heart surgeries in the past most of them at [facility] and was told by [facility] aircraft part assembler that no further interventions can be done with her heart so she wishes not to have any further heart catheterizations. She denies fever, chills, nausea, vomiting, diarrhea, calf tenderness, sick contacts, cold or heat intolerance, palpitations. Had difficulty eating this AM. request medication reconciliation. No difficulty voiding, +BM - Exam Vitals: Temp Pulse Resp BP Pulse Ox 98.1 F 83 16 109/70 99 01/19/19 06:51 01/19/19 06:51 01/19/19 06:51 01/19/19 06:51 01/19/19 06:51 Exam: General: Patient is alert, oriented, no acute distress, speaks in full sentences Head: atraumatic, normocephalic, Eye: normal appearance, PERRL, no scleral icterus, no conjunctival injection ENT: mucous membranes moist, normal external ear exam Neck: normal inspection, trachea midline, full ROM, Chest: normal inspection, symmetric chest rise Respiratory: Good respiratory effort. Bilateral breath sounds are clear without wheezing, crackles, or rhonchi. Cardiovascular: Regular rate and rhythm. s1 and s2 No clicks, rubs, gallops, or murmors. Abdomen: Bowel sounds present normoactive x-4 quadrants. Abdomen is soft, nondistended. no Epigastric tenderness. No guarding or rebound. No organomegaly noted, obese musculoskeletal: Spontaneously moving all extremities. 2+ edema, no calf tenderness Skin: warm, dry, intact. Neuro: Alert and oriented x4. No focal deficit Psych: Patient's affect is normal - Assessment and Plan (1) Acute exacerbation of CHF (congestive heart failure) Current Visit: No Status: Acute Assessment and Plan: Echo with LVEF 20%, severe systolic dysfunction CXR no acute abnormalities Abdominal ultrasound without ascites Continue strict I/Os. She has lost >1kg in the last day but continues to be fl uid overloaded Continue with IV lasix 40mg BID, daily weights History of CKD stage III, continue with AM labs to monitor Continue diabetic and cardiac diet (2) NSTEMI (non-ST elevated myocardial infarction) Current Visit: Yes Status: Acute Assessment and Plan: 83F presents with chest pain, history of CAD s/p CABG, CHF s/p AICD EKG with ST changes Troponin mildly elevated 0.04/0.04 Continue cardiac monitoring Cardiology on board. Patient does not want any interventions, no [facility] Palliative has been consulted. Patient not ready for hospice. She has home health nurse already. No acute changes needed. Continue with ASA, Coreg, Nitro as needed for CP. Will start Imdur 30mg PO daily Patient will be here tonight for CHF exacerbation management with diuresis(see below) Expect discharge home tomorrow We will obtain records from [facility] from previous cardiac interventions (3) Chest pain Current Visit: Yes Status: Acute Assessment and Plan: Acute chest pain in the setting of NSTEMI Patient has not required SL nitro since admission We will start her on Imdur 30mg PO daily. (4) Palliative care encounter Current Visit: Yes Status: Acute Assessment and Plan: Patient with NSTEMI, does not want further intervention. Palliative seen. Patient not ready for hospice. Will continue current management. (5) Atrial fibrillation Current Visit: No Status: Chronic Assessment and Plan: Chronic and stable since admission. Continue with rate control with Coreg. CHADVASC2 > 5. Continue with home coumadin dose AM PT/INR (6) Acute renal failure superimposed on stage 3 chronic kidney disease Current Visit: No Status: Acute Assessment and Plan: acute on chronic CKD. Patient with CHF exacerbation, we will continue with IV lasix for now and monitor kidney function. K+ supplementation as needed. AM labs Avoid further nephrotoxins if possible (7) Advance directive discussed with patient Current Visit: No Status: Acute (8) IDDM (insulin dependent diabetes mellitus) Current Visit: No Status: Acute Assessment and Plan: Chronic and stable. Continue SSI DVT Prophylaxis: Patient is on Coudamdin for Afib, SCDs - Time Spent with Patient Total time spent is greater than 50% in coordination of care (as documented) at patient's floor/unit and/or counseling patient: 25 - 35 minutes Plan of Care Discussed with: patient Internal Medicine: Result - Labs CBC & Chem 7: 01/19/19 01:53 01/19/19 01:53 Labs: Short CBC 01/18/19 01/19/19 Range/Units 10:51 01:53 WBC 7.0 7.5 (4.3-11.1) K/mcL Hgb 11.7 12.1 (11.5-15.4) g/dL Hct 37.2 38.5 (35.3-44.9) % Plt Count 201 194 (140-400) K/mcL Neutrophils # 5.2 4.9 (1.6-8.9) K/mcL BMP 01/18/19 01/19/19 10:51 01:53 Sodium 134 L 138 Potassium 4.3 3.6 Chloride 100 99 Carbon Dioxide 24 30 H BUN 37 H 35 H Creatinine 1.34 H 1.18 Glucose 261 H 121 H Calcium 9.6 9.6 Cardiac Enzymes 01/18/19 01/18/19 01/18/19 Range/Units 10:51 15:54 21:48 Troponin I 0.03 0.03 0.04 H* (< 0.04) ng/mL 01/19/19 Range/Units 01:53 Troponin I 0.04 H* (< 0.04) ng/mL Liver Function 01/18/19 Range/Units 10:51 Total Bilirubin 0.6 (0.3-1.0) mg/dL Direct Bilirubin 0.1 (0.0-0.2) mg/dL AST 17 (13-39) Units/L ALT 8 (7-52) Units/L Alkaline Phosphatase 110 H (34-104) Units/L Albumin 4.5 (3.5-5.7) g/dL Urine 01/18/19 Range/Units 17:57 Urine Color Yellow (Yellow) Urine Clarity Clear (Clear) Urine pH 6.5 (5.0-8.0) pH Units Ur Specific [place] 1.008 L (1.010-1.025) Urine Protein Negative (Neg-Trace) mg/dL Urine Glucose (UA) Normal (Normal) mg/dL - ABG Interpretation ABG results: PT/INR, D-dimer PT 28.0 Seconds (9.4-12.1) H 01/19/19 01:53 - Impressions Impressions Chest X-Ray 01/18/19 10:37 IMPRESSION: No acute cardiopulmonary process. D/ / 01/18/2019 10:58:25 Tyrell Thapa MD / [facility] Interpreting Provider: Tyrell Thapa MD Echocardiogram 01/18/19 13:41 Impressions: LVEF 20%. Moderately dilated left ventricle. Severe global left ventricular systolic dysfunction. Atypical septal motion consistent with paced rhythm. Indeterminate diastolic function. Mildly dilated right ventricle. Moderate right ventricular hypokinesis. Severely dilated left atrium. Severely dilated right atrium. Mild aortic regurgitation. Severe mitral regurgitation. Mitral valve leaflets are apically displaced due to LV enlargement. Moderate-severe tricuspid regurgitation. Severe pulmonary hypertension. Estimated RVSP is >90 mmHg. A device lead was visualized in the right atrium and right ventricle. Left Ventricular Wall Motion: Rest Echo Findings The apex, apical inferior, mid inferior, basal inferior, apical anterior, mid anterior, basal anterior, apical septal, mid inferior septal, basal inferior septal, apical lateral, mid anterior lateral, basal anterior lateral, mid anterior septal, mid inferior lateral, basal anterior septal and basal inferior lateral banerjee were hypokinetic. Findings: Study Quality * Technically adequate exam. ECG Findings * Paced rhythm. Left Ventricle * LVEF 20%. * Moderately dilated left ventricle. * Severe global left ventricular systolic dysfunction. * Atypical septal motion consistent with paced rhythm. * Indeterminate diastolic function. Right Ventricle * Mildly dilated right ventricle. * Moderate right ventricular hypokinesis. Left Atrium * Severely dilated left atrium. Right Atrium * Severely dilated right atrium. Aortic Valve * Aortic valve not well visualized. * Mild aortic regurgitation. * No aortic stenosis. Mitral Valve * Mitral valve leaflets are apically displaced due to LV enlargement. * Severe mitral regurgitation. * No mitral stenosis. Tricuspid Valve * Normal tricuspid valve structure. * Moderate-severe tricuspid regurgitation. * Severe pulmonary hypertension. * Estimated RVSP is >90 mmHg. * Estimated RA pressure is 10-20 mmHg. Pulmonic Valve * Normal pulmonic valve structure. * Mild pulmonic regurgitation. Aorta * Normally sized aortic root. Pericardium * The pericardium appears normal. IVC * The IVC is dilated. * < 50% respiratory change. Device lead * A device lead was visualized in the right atrium and right ventricle. Pulmonary Artery * Pulmonary artery not well visualized. Abdomen Ultrasound 01/18/19 18:30 IMPRESSION: No evidence of ascites on a 4 quadrant survey of the abdomen and pelvis. Incidentally included kidneys are grossly unremarkable to the extent that they are included on the study. D/ / Christi Beck MD / Christi Beck MD Interpreting Provider: Christi Beck MD Retroperitoneum Ultrasound 01/18/19 18:30 IMPRESSION: Small amount of left perinephric fluid. Renal ultrasound appearance is otherwise unremarkable without evidence of hydronephrosis. D/ / Christi Beck MD / Christi Beck MD Interpreting Provider: Christi Beck MD Consult Discharge Plan - Plan Referrals: Ary Aponte MD [Primary Care Provider] - (Appointment has been requested. Our offices will call with an appointment time and date.) <Yenifer Arnold - Last Filed: 01/19/19 15:15> Hospitalist Progress Note - Encounter Date of Encounter: 01/19/19 - Exam Vitals: Temp Pulse Resp BP Pulse Ox 97.9 F 73 16 106/71 98 01/19/19 11:58 01/19/19 11:58 01/19/19 11:58 01/19/19 11:58 01/19/19 11:58 - Assessment and Plan (1) Acute exacerbation of CHF (congestive heart failure) Current Visit: No Status: Acute (2) Atrial fibrillation Current Visit: No Status: Chronic (3) DVT prophylaxis Current Visit: No Status: Acute (4) Acute renal failure superimposed on stage 3 chronic kidney disease Current Visit: No Status: Acute (5) Chest pain Current Visit: Yes Status: Acute (6) Advance directive discussed with patient Current Visit: No Status: Acute (7) IDDM (insulin dependent diabetes mellitus) Current Visit: No Status: Acute - Time Spent with Patient Total time spent is greater than 50% in coordination of care (as documented) at patient's floor/unit and/or counseling patient: Internal Medicine: Result - Labs CBC & Chem 7: 01/19/19 01:53 01/19/19 01:53 Labs: Short CBC 01/19/19 Range/Units 01:53 WBC 7.5 (4.3-11.1) K/mcL Hgb 12.1 (11.5-15.4) g/dL Hct 38.5 (35.3-44.9) % Plt Count 194 (140-400) K/mcL Neutrophils # 4.9 (1.6-8.9) K/mcL BMP 01/19/19 01:53 Sodium 138 Potassium 3.6 Chloride 99 Carbon Dioxide 30 H BUN 35 H Creatinine 1.18 Glucose 121 H Calcium 9.6 Cardiac Enzymes 01/18/19 01/18/19 01/19/19 Range/Units 15:54 21:48 01:53 Troponin I 0.03 0.04 H* 0.04 H* (< 0.04) ng/mL Liver Function 01/18/19 Range/Units 10:51 Total Bilirubin 0.6 (0.3-1.0) mg/dL Direct Bilirubin 0.1 (0.0-0.2) mg/dL AST 17 (13-39) Units/L ALT 8 (7-52) Units/L Alkaline Phosphatase 110 H (34-104) Units/L Albumin 4.5 (3.5-5.7) g/dL Urine 01/18/19 Range/Units 17:57 Urine Color Yellow (Yellow) Urine Clarity Clear (Clear) Urine pH 6.5 (5.0-8.0) pH Units Ur Specific [place] 1.008 L (1.010-1.025) Urine Protein Negative (Neg-Trace) mg/dL Urine Glucose (UA) Normal (Normal) mg/dL - ABG Interpretation ABG results: PT/INR, D-dimer PT 28.0 Seconds (9.4-12.1) H 01/19/19 01:53 - Impressions Impressions Echocardiogram 01/18/19 13:41 Impressions: LVEF 20%. Moderately dilated left ventricle. Severe global left ventricular systolic dysfunction. Atypical septal motion consistent with paced rhythm. Indeterminate diastolic function. Mildly dilated right ventricle. Moderate right ventricular hypokinesis. Severely dilated left atrium. Severely dilated right atrium. Mild aortic regurgitation. Severe mitral regurgitation. Mitral valve leaflets are apically displaced due to LV enlargement. Moderate-severe tricuspid regurgitation. Severe pulmonary hypertension. Estimated RVSP is >90 mmHg. A device lead was visualized in the right atrium and right ventricle. Left Ventricular Wall Motion: Rest Echo Findings The apex, apical inferior, mid inferior, basal inferior, apical anterior, mid anterior, basal anterior, apical septal, mid inferior septal, basal inferior septal, apical lateral, mid anterior lateral, basal anterior lateral, mid anterior septal, mid inferior lateral, basal anterior septal and basal inferior lateral banerjee were hypokinetic. Findings: Study Quality * Technically adequate exam. ECG Findings * Paced rhythm. Left Ventricle * LVEF 20%. * Moderately dilated left ventricle. * Severe global left ventricular systolic dysfunction. * Atypical septal motion consistent with paced rhythm. * Indeterminate diastolic function. Right Ventricle * Mildly dilated right ventricle. * Moderate right ventricular hypokinesis. Left Atrium * Severely dilated left atrium. Right Atrium * Severely dilated right atrium. Aortic Valve * Aortic valve not well visualized. * Mild aortic regurgitation. * No aortic stenosis. Mitral Valve * Mitral valve leaflets are apically displaced due to LV enlargement. * Severe mitral regurgitation. * No mitral stenosis. Tricuspid Valve * Normal tricuspid valve structure. * Moderate-severe tricuspid regurgitation. * Severe pulmonary hypertension. * Estimated RVSP is >90 mmHg. * Estimated RA pressure is 10-20 mmHg. Pulmonic Valve * Normal pulmonic valve structure. * Mild pulmonic regurgitation. Aorta * Normally sized aortic root. Pericardium * The pericardium appears normal. IVC * The IVC is dilated. * < 50% respiratory change. Device lead * A device lead was visualized in the right atrium and right ventricle. Pulmonary Artery * Pulmonary artery not well visualized. Abdomen Ultrasound 01/18/19 18:30 IMPRESSION: No evidence of ascites on a 4 quadrant survey of the abdomen and pelvis. Incidentally included kidneys are grossly unremarkable to the extent that they are included on the study. D/ / Christi Beck MD / Christi Beck MD Interpreting Provider: Christi Beck MD Retroperitoneum Ultrasound 01/18/19 18:30 IMPRESSION: Small amount of left perinephric fluid. Renal ultrasound appearance is otherwise unremarkable without evidence of hydronephrosis. D/ / Christi Beck MD / Christi Beck MD Interpreting Provider: Christi Beck MD - Attending Attestation I examined this patient and my medical decision-making was reviewed with the Resident Physician Dr. Dias. I agree with the documented findings, disposition and treatment plan as described except to the extent set forth below. Ms. Mosley is a 83 y/o F with known past medical history of CAD status post PCI, ischemic cardiomyopathy, systolic CHF status post AICD, hypertension and hyperlipidemia patient presented to ER with a progressively worsening shortness of breath and volume overload with b/l LE edema. She also complained of int ermittent chest pain. She was admitted in the hospital and placed on laboratory monitor. Her serial troponin slightly elevated at 0.04, however adynamic. Patient was evaluated by aircraft part assembler. Pt do not wanted to proceed with any further cardiac work up. However she would like to continue the medical treatment for CHF exacerbation and ok to try Imdur for her CP. So cont IV Lasix and started on Imdur 30mg for CP Gen: A, A, O x3 Chest: Dimisnihed BS b/l, no crackles , no rales heart: S1S2+ RRR No murmurs Ext: 2+ pedal edema <Martin Dias - Last Filed: 01/19/19 12:17> (3) Chest pain Qualifiers: Chest pain type: precordial pain Qualified Code(s): R07.2 - Precordial pain (5) Atrial fibrillation Qualifiers: Atrial fibrillation type: permanent Qualified Code(s): I48.2 - Chronic atrial fibrillation (6) Acute renal failure superimposed on stage 3 chronic kidney disease Qualifiers: Acute renal failure type: unspecified Qualified Code(s): N17.9 - Acute kidney failure, unspecified; N18.3 - Chronic kidney disease, stage 3 (moderate) <Yenifer Arnold - Last Filed: 01/19/19 15:15> (2) Atrial fibrillation Qualifiers: Atrial fibrillation type: permanent Qualified Code(s): I48.2 - Chronic atrial fibrillation (4) Acute renal failure superimposed on stage 3 chronic kidney disease Qualifiers: Acute renal failure type: unspecified Qualified Code(s): N17.9 - Acute kidney failure, unspecified; N18.3 - Chronic kidney disease, stage 3 (moderate) (5) Chest pain Qualifiers: Chest pain type: precordial pain Qualified Code(s): R07.2 - Precordial pain
[2019-01-19] MEDS: Aspirin Enteric Coated 81 MG Tablet PO SCH (09:23)
[2019-01-19] MEDS: Loratadine 10 MG TABLET PO SCH (09:23)
[2019-01-19] MEDS: Furosemide 40 MG/4 ML VIAL IVP SCH ×2 (09:23→20:18)
[2019-01-19] MEDS: Lactulose Oral Soln 20 GM/30 ML UDC PO SCH (09:24)
[2019-01-19] MEDS: Triamcinolone Acet 0.1% CRM 15 GM TUBE TP SCH ×2 (09:24→20:20)
[2019-01-19] MEDS: Capsaicin 0.025% 60 GM TUBE TP SCH ×2 (09:24→20:20)
[2019-01-19] MEDS: Aspirin 81 MG TAB.CHEW PO SCH (09:27)
--- NOTE | 2019-01-19 13:17 | Palliative - Consult Note ---
Date of Encounter: 01/19/19 Time of Encounter: 12:30 - Assessment and Plan (1) Chest pain due to CAD Current Visit: Yes Status: Acute Assessment and plan: Has Nitro available if needed. Hospice would be beneficial for her to manage further chest pain at home with low dose opioids and prevent further hospitalizations, but she declines. (2) Dyspnea on exertion Current Visit: No Status: Acute Assessment and plan: Continues care with supportive oxygen and IV diuretics. (3) Advance care planning Current Visit: Yes Status: Acute Assessment and plan: Patient lives alone in large home she has rented for many years. Has 5 children, both of her daughters have medical conditions (Johanne with end stage copd, and Bebe with Parkinsons). One son James, resides in [place], and Honorio and Min [facility]. States that her children rotate coming every week and checking on her. States she has nurse that comes monthly for bloodwork, but not sure who this is through. She is independent in ADL's, although states she cannot navigate stairs any longer and has trouble finding someone to do laundry. She has oxygen in place, but states hasn't used it for 2 yts. Her 10 yrs ago under her care, and she had hospice support with him as well. Discussed patient goals - she remains consistent with what has been stated thus far in her record. She does not want any further cardiac workup, and wants to be comfortable. Our discussion including the following : she is eligible for hospice care, Code status, advanced directives, home care, her AICD and quality of life. Patient is very determined in her discussion. She does desire to be DNR-CC - however, does not want defibrillator deactivated. States she has been shocked before and "knows what that feels like", but she feels that unless she is actively dying, turning it off prior is "suicide". I discussed at length, this is a resuscitative device, and the pacemaker is not turned off, only the defib, and she verbalized understanding, but not changing any decision. She did complete and sign DNrcc state form and copies provided to patient and placed on her medical record. I did discuss at length the support that hospice could provide and could provide her care where she would not have to return to hospital, but she declines this at this time. Also discussed importance of advanced directives and medical power of admitted attorneys, she refused to complete this and desired her personal admitted attorneys to provide this. She states she is not eligible for Medicaid to get passport type services to assist with her issues of care at home. At the end of conversation, I did express to patient I was concerned without hospice in place, she would end up having things done that might not be in alignment with her wishes, she continues to decline. D/W Dr. Dias. Total time spent with patient in advanced care planning and coordination of care and counseling - 60 min At this time, we do not have any outpatient services to offer. Palliative will sign off. Please call if needed. (4) Heart failure with reduced ejection fraction, NYHA class III Current Visit: Yes Status: Acute (5) Palliative care encounter Current Visit: Yes Status: Acute Palliative-CN HPI - Data of Consult Consult date: 01/19/19 Requesting Physician: Yenifer Arnold MD Primary Care Provider: Ary Aponte - Consult Narrative History of present illness: Ms. Mosley is a 83 year old female who presented to the ER with chest pain that has been intermittent the last 3 days. States has also had increasing shortness of breath as well. Pain was in left chest, did not radiate. She has significant cardiac history with CABG x2, Systolic heart failure with AICD, atrial fib on anticoagulation. She states that she was told by [facility] 3 yrs ago after a catheterization, they were unable to stent, and she was not a candidate for further intervention. Patient EKG on arrival did show changes and cardiology was consulted. Troponins were slightly elevated. Patient declined any further workup or testing for her heart. States that she has seen Dr. Justice in the past and he manages/monitors her device, but Dr. Ary Aponte handles most of her medications. Patient did have repeat echocardiogram performed, and EF has now decreased to 2 0% (Last known was 30%). Palliative was consulted to assist with goals of care discussion. Upon my visit, pt is up and walking around room. Appears younger than stated age. Denies chest pain, anxiety, nausea. Does states becomes short of breath with activity. States not able to navigate stairs at her home any longer. Last time she tried, she was shocked by her AICD. Lives alone, has 5 children. States hopes to be going home soon. No visitors are present. CC: Yenifer Arnold MD - Time Spent with Patient Time: Total time spent is greater than 50% in coordination of care (as documented) at patient's floor/unit and/or counseling patient: Past Med Surg Social Fam HX - Past Medical History Medical history: arthritis, atrial fibrillation, cancer, cardiomyopathy, CHF, coronary artery disease, CVA, diabetes, GERD, hyperlipidemia, malignancy, osteoporosis, thyroid disease, TIA, valvular heart disease Additional medical history: skin cancer Psychiatric history: no psych history - Past Surgical History Surgical History: cancer surgery, coronary bypass (CABG), pacemaker/AICD, other, AICD, pacemaker Additional surgical history: throat surgery for polyps, CABG X2, skin cancer surgery - Social History Smoking Status: Former smoker Smokeless Tobacco Status: No Alcohol use: none Drug use: none - Family History Mother Living Status: Hx Family Cardiac Disorders: Yes Hx Family Endocrine Disorder: Yes (DM) Father Living Status: Hx Family Cardiac Disorders: Yes Hx Family Endocrine Disorder: Yes (DM) Medications and Allergies Levothyroxine [Synthroid] 150 mcg PO QAM 10/02/15 [History] Loratadine [Claritin] 10 mg PO QAM 10/02/15 [History] Warfarin [Coumadin] 2.5 mg PO DAILY 10/02/15 [History] diazePAM [Valium] 10 mg PO BID PRN 10/02/15 [History] Carvedilol 3.125 mg PO BID 01/12/17 [History] Oxygen 2 l NS AD 02/16/17 [History] metOLazone [Zaroxolyn] 2.5 mg PO Q48H 02/16/17 [History] Spironolactone [Aldactone] 50 mg PO BID 02/16/18 [History] Aspirin [Lo-Dose Aspirin EC] 81 mg PO DAILY 01/18/19 [History] Clotrimazole 1% CRM [Lotrimin 1%] 1 appl TP BID PRN 01/18/19 [History] Furosemide [Lasix] 40 mg PO HS 01/18/19 [History] Furosemide [Lasix] 80 mg PO QAM 01/18/19 [History] Insulin Lispro Protamin/Lispro [Humalog Mix 75-25 Kwikpen] 8 units SQ HS 01/18/19 [History] Insulin Lispro Protamin/Lispro [Humalog Mix 75-25 Kwikpen] 16 units SQ QAM 01/18/19 [History] Montelukast Sodium [Singulair] 10 mg PO DAILY 01/18/19 [History] Omeprazole [PriLOSEC] 40 mg PO BID 01/18/19 [History] Sucralfate [Carafate] 1 gm PO BID 01/18/19 [History] Triamcinolone Acet 0.1% CRM [Kenalog] 1 applic TP BID 01/18/19 [History] Allergy/AdvReac Type Severity Reaction Status Date / Time metoprolol Allergy Anaphylaxis Verified 01/18/19 18:59 oxycodone [From Percocet] AdvReac Intermediate See Verified 01/18/19 18:59 Comments fenofibrate [From Tricor] AdvReac Gastrointestinal Verified 01/18/19 18:59 Upset dye Allergy Anaphylaxis Uncoded 01/18/19 18:59 vicodin AdvReac Intermediate See Uncoded 01/18/19 18:59 Comments All systems: reviewed and no additional remarkable complaints except as stated (intermittent chest pain, dyspnea on exertion) Palliative Care-Exam - Constitutional Vitals: Temp Pulse Resp BP Pulse Ox 97.9 F 73 16 106/71 98 01/19/19 11:58 01/19/19 11:58 01/19/19 11:58 01/19/19 11:58 01/19/19 11:58 General appearance: Present: no acute distress - Head Head Exam: Present: normal inspection, normocephalic - Eye Eye exam: Present: normal appearance, PERRL - Respiratory Respiratory exam: Present: decreased breath sounds, CTAB - Cardiovascular Cardiovascular exam: Present: irregular rhythm - GI/Abdominal Exam GI/Abdominal exam: Present: normal bowel sounds, soft - Extremities Exam Extremities exam: Present: normal capillary refill Additional comments: 1+ bilateral lower extremity edema - Neurological Exam Neurological exam: Present: alert, oriented X3, strengths equal and symetr throughout - Skin Skin exam: Present: dry, pallor, warm Internal Medicine - CN: Reslt - Labs CBC & Chem 7: 01/19/19 01:53 01/19/19 01:53 Labs: Short CBC 01/19/19 Range/Units 01:53 WBC 7.5 (4.3-11.1) K/mcL Hgb 12.1 (11.5-15.4) g/dL Hct 38.5 (35.3-44.9) % Plt Count 194 (140-400) K/mcL Neutrophils # 4.9 (1.6-8.9) K/mcL BMP 01/18/19 01/19/19 10:51 01:53 Sodium 134 L 138 Potassium 4.3 3.6 Chloride 100 99 Carbon Dioxide 24 30 H BUN 37 H 35 H Creatinine 1.34 H 1.18 Glucose 261 H 121 H Calcium 9.6 9.6 Cardiac Enzymes 01/18/19 01/18/19 01/18/19 Range/Units 10:51 15:54 21:48 Troponin I 0.03 0.03 0.04 H* (< 0.04) ng/mL 01/19/19 Range/Units 01:53 Troponin I 0.04 H* (< 0.04) ng/mL Liver Function 01/18/19 Range/Units 10:51 Total Bilirubin 0.6 (0.3-1.0) mg/dL Direct Bilirubin 0.1 (0.0-0.2) mg/dL AST 17 (13-39) Units/L ALT 8 (7-52) Units/L Alkaline Phosphatase 110 H (34-104) Units/L Albumin 4.5 (3.5-5.7) g/dL Urine 01/18/19 Range/Units 17:57 Urine Color Yellow (Yellow) Urine Clarity Clear (Clear) Urine pH 6.5 (5.0-8.0) pH Units Ur Specific Twining 1.008 L (1.010-1.025) Urine Protein Negative (Neg-Trace) mg/dL Urine Glucose (UA) Normal (Normal) mg/dL - ABG Interpretation ABG results: PT/INR, D-dimer PT 28.0 Seconds (9.4-12.1) H 01/19/19 01:53 - Impressions Impressions Chest X-Ray 01/18/19 10:37 IMPRESSION: No acute cardiopulmonary process. D/ / 01/18/2019 10:58:25 Tyrell Thapa MD / [facility] Interpreting Provider: Tyrell Thapa MD Echocardiogram 01/18/19 13:41 Impressions: LVEF 20%. Moderately dilated left ventricle. Severe global left ventricular systolic dysfunction. Atypical septal motion consistent with paced rhythm. Indeterminate diastolic function. Mildly dilated right ventricle. Moderate right ventricular hypokinesis. Severely dilated left atrium. Severely dilated right atrium. Mild aortic regurgitation. Severe mitral regurgitation. Mitral valve leaflets are apically displaced due to LV enlargement. Moderate-severe tricuspid regurgitation. Severe pulmonary hypertension. Estimated RVSP is >90 mmHg. A device lead was visualized in the right atrium and right ventricle. Left Ventricular Wall Motion: Rest Echo Findings The apex, apical inferior, mid inferior, basal inferior, apical anterior, mid anterior, basal anterior, apical septal, mid inferior septal, basal inferior septal, apical lateral, mid anterior lateral, basal anterior lateral, mid anterior septal, mid inferior lateral, basal anterior septal and basal inferior lateral banerjee were hypokinetic. Findings: Study Quality * Technically adequate exam. ECG Findings * Paced rhythm. Left Ventricle * LVEF 20%. * Moderately dilated left ventricle. * Severe global left ventricular systolic dysfunction. * Atypical septal motion consistent with paced rhythm. * Indeterminate diastolic function. Right Ventricle * Mildly dilated right ventricle. * Moderate right ventricular hypokinesis. Left Atrium * Severely dilated left atrium. Right Atrium * Severely dilated right atrium. Aortic Valve * Aortic valve not well visualized. * Mild aortic regurgitation. * No aortic stenosis. Mitral Valve * Mitral valve leaflets are apically displaced due to LV enlargement. * Severe mitral regurgitation. * No mitral stenosis. Tricuspid Valve * Normal tricuspid valve structure. * Moderate-severe tricuspid regurgitation. * Severe pulmonary hypertension. * Estimated RVSP is >90 mmHg. * Estimated RA pressure is 10-20 mmHg. Pulmonic Valve * Normal pulmonic valve structure. * Mild pulmonic regurgitation. Aorta * Normally sized aortic root. Pericardium * The pericardium appears normal. IVC * The IVC is dilated. * < 50% respiratory change. Device lead * A device lead was visualized in the right atrium and right ventricle. Pulmonary Artery * Pulmonary artery not well visualized. Abdomen Ultrasound 01/18/19 18:30 IMPRESSION: No evidence of ascites on a 4 quadrant survey of the abdomen and pelvis. Incidentally included kidneys are grossly unremarkable to the extent that they are included on the study. D/ / Christi Beck MD / Christi Beck MD Interpreting Provider: Christi Beck MD Retroperitoneum Ultrasound 01/18/19 18:30 IMPRESSION: Small amount of left perinephric fluid. Renal ultrasound appearance is otherwise unremarkable without evidence of hydronephrosis. D/ / Christi Beck MD / Christi Beck MD Interpreting Provider: Christi Beck MD Consult Discharge Plan - Plan Referrals: Ary Aponte MD [Primary Care Provider] - (Appointment has been requested. Our offices will call with an appointment time and date.) Palliative Quality Palliative Quality: Screen for Code Status: Yes, Screen for Goals of Care: Yes, Screen for Pain: Yes, If Pain Regimen Started, Initiate Bowel Regimen: NA, Screen for Nausea/Vomitting: Yes Code Status: 01/18/19 13:22 Resuscitation Status: Active [RES] Routine Comment: Resuscitation Status: [id number]
--- NOTE | 2019-01-19 13:21 | Cardiology Progress Note ---
Date of Encounter: 01/19/19 Time of Encounter: 13:18 Assessment and Plan (1) Heart failure with reduced ejection fraction, NYHA class III Current Visit: Yes Status: Acute Per cardiology: -Admitted with CHF. Known ICM. -On IV diuresis, currently net negative ~1.5L. Weight improved. -States symptom improvement. -Continue IV diuresis until euvolemic. -Strict i/os, fluid restrictions, daily weights. -CHF education reviewed with patient. -Cardiology will sign off, will arrange outpatient follow up. (2) Elevated troponin Current Visit: No Status: Acute Per cardiology: -Troponins negative, 0.04 x2 in the setting of CHF. -Had reported chest pain. After diuresis and addition of imdur, patient is now chest pain free. -Patient wishes to be DNR-CC and declines further intervention. -Medical management. No cardiac rehab consult warranted. (3) Ischemic cardiomyopathy Current Visit: No Status: Chronic Per cardiology: -Known ICM. TTE with LVEF 20%. -ON BB, Not on nancy/arb due to hypotension. -ON lasix and metalazone. -Continue current medical management. (4) Atrial fibrillation Current Visit: No Status: Chronic Per cardiology: -Rate controlled. Continue Coreg 3.125 mg twice a day, Coumadin for anticoagulation Qualifiers: Atrial fibrillation type: permanent Qualified Code(s): I48.2 - Chronic atrial fibrillation Discussion w patient/family: The assessment and plan as outlined above was discussed with the patient who expressed understanding and agreement. All questions were answered. Thank you for involving us in the care of your patient. Please call with any questions. Discussed and reviewed with . Subjective Principal diagnosis: CHF, chest pain Interval history: Patient denies chest pain today. States she has been up walking without chest pain. States breathing is improved. Reports continued edema, however improved. Objective Vital Signs, Last 4 Hours Temp Pulse Resp BP Pulse Ox 01/19/19 11:58 97.9 F 73 16 106/71 98 General: Conversant, No Apparent Distress HEENT: Atraumatic, Normocephaly, Mucus Membranes Moist Neck: No JVD, Normal carotid pulses Cardiac: Reg Rate and Rhythm, Normal S1 and S2, No Murmur Lungs: Normal Breath Sounds, No Wheeze, Rales, Rhonchi Neuro: Alert and responsive, No focal deficits noted Abdomen: Soft, Non-Tender Skin: No rashes noted on visualized skin Musculoskeletal: No Chest Wall Tenderness Extremities: No Clubbing, No Cyanosis, Normal Pulses, Other (1+ bilateral lower extremity pitting edema. ) Results 01/19/19 01:53 01/19/19 01:53 Lab Results Impressions Chest X-Ray 01/18/19 10:37 IMPRESSION: No acute cardiopulmonary process. D/ / 01/18/2019 10:58:25 Tyrell Thapa MD / [facility] Interpreting Provider: Tyrell Thapa MD Echocardiogram 01/18/19 13:41 Impressions: LVEF 20%. Moderately dilated left ventricle. Severe global left ventricular systolic dysfunction. Atypical septal motion consistent with paced rhythm. Indeterminate diastolic function. Mildly dilated right ventricle. Moderate right ventricular hypokinesis. Severely dilated left atrium. Severely dilated right atrium. Mild aortic regurgitation. Severe mitral regurgitation. Mitral valve leaflets are apically displaced due to LV enlargement. Moderate-severe tricuspid regurgitation. Severe pulmonary hypertension. Estimated RVSP is >90 mmHg. A device lead was visualized in the right atrium and right ventricle. Left Ventricular Wall Motion: Rest Echo Findings The apex, apical inferior, mid inferior, basal inferior, apical anterior, mid anterior, basal anterior, apical septal, mid inferior septal, basal inferior septal, apical lateral, mid anterior lateral, basal anterior lateral, mid anterior septal, mid inferior lateral, basal anterior septal and basal inferior lateral banerjee were hypokinetic. Findings: Study Quality * Technically adequate exam. ECG Findings * Paced rhythm. Left Ventricle * LVEF 20%. * Moderately dilated left ventricle. * Severe global left ventricular systolic dysfunction. * Atypical septal motion consistent with paced rhythm. * Indeterminate diastolic function. Right Ventricle * Mildly dilated right ventricle. * Moderate right ventricular hypokinesis. Left Atrium * Severely dilated left atrium. Right Atrium * Severely dilated right atrium. Aortic Valve * Aortic valve not well visualized. * Mild aortic regurgitation. * No aortic stenosis. Mitral Valve * Mitral valve leaflets are apically displaced due to LV enlargement. * Severe mitral regurgitation. * No mitral stenosis. Tricuspid Valve * Normal tricuspid valve structure. * Moderate-severe tricuspid regurgitation. * Severe pulmonary hypertension. * Estimated RVSP is >90 mmHg. * Estimated RA pressure is 10-20 mmHg. Pulmonic Valve * Normal pulmonic valve structure. * Mild pulmonic regurgitation. Aorta * Normally sized aortic root. Pericardium * The pericardium appears normal. IVC * The IVC is dilated. * < 50% respiratory change. Device lead * A device lead was visualized in the right atrium and right ventricle. Pulmonary Artery * Pulmonary artery not well visualized. Abdomen Ultrasound 01/18/19 18:30 IMPRESSION: No evidence of ascites on a 4 quadrant survey of the abdomen and pelvis. Incidentally included kidneys are grossly unremarkable to the extent that they are included on the study. D/ / Christi Beck MD / Christi Beck MD Interpreting Provider: Christi Beck MD Retroperitoneum Ultrasound 01/18/19 18:30 IMPRESSION: Small amount of left perinephric fluid. Renal ultrasound appearance is otherwise unremarkable without evidence of hydronephrosis. D/ / Christi Beck MD / Christi Beck MD Interpreting Provider: Christi Beck MD Active Medications Aspirin [facility]in Ec) [facility] [place] Stop: 07/21/19 09:01 Last Admin: 01/19/19 09:23 Dose: 81 mg Documented by: Calcium Carbonate (Tums) 500 mg PO QAM [facility] Stop: 07/21/19 09:01 Last Admin: 01/19/19 10:30 Dose: Not Given Documented by: Capsaicin (Trixaicin) 1 appl TP BID [facility] Stop: 07/20/19 21:01 Last Admin: 01/19/19 09:24 Dose: Not Given Documented by: Carvedilol (Coreg) 3.125 mg PO BIDWM [facility] Stop: 07/20/19 17:01 Last Admin: 01/19/19 09:23 Dose: 3.125 mg Documented by: Dextrose/Water (Dextrose 50% (Syg)) 25 ml IVP AD PRN PRN Reason: Hypoglycemia Stop: 07/20/19 13:58 Diazepam (Valium) 10 mg PO BID PRN PRN Reason: Anxiety Stop: 07/20/19 17:09 Last Admin: 01/18/19 22:33 Dose: 10 mg Documented by: Furosemide (Lasix) 40 mg IVP BID [facility] Stop: 07/20/19 21:01 Last Admin: 01/19/19 09:23 Dose: 40 mg Documented by: Gabapentin (Neurontin) 100 mg PO [facility] Stop: 07/20/19 21:01 Last Admin: 01/18/19 20:32 Dose: Not Given Documented by: Glucagon (Glucagen) 1 mg IM ONCE PRN PRN Reason: Hypoglycemia Stop: 07/20/19 13:58 Glucose (Gluctose) 15 gm PO ONCE PRN PRN Reason: Hypoglycemia Stop: 07/20/19 13:58 Glucose (Gluctose) 30 gm PO ONCE PRN PRN Reason: Hypoglycemia Stop: 07/20/19 13:58 Dextrose (Dextrose 5%) 1,000 mls @ 100 mls/hr IVC .Q10H PRN PRN Reason: HYPOGLYCEMIA Stop: 07/20/19 13:58 Insulin Human Lispro (Humalog) [facility]; Protocol Stop: 07/20/19 16:31 Last Admin: 01/19/19 12:05 Dose: 4 units Documented by: Insulin Human Lispro (Humalog) 0 units SQ [facility]; Protocol Stop: 07/20/19 21:01 Last Admin: 01/18/19 20:52 Dose: Not Given Documented by: Isosorbide Mononitrate (Imdur) 30 mg PO DAILY [facility] Stop: 07/21/19 12:27 Lactulose (Lactulose) 20 gm PO DAILY [facility] Stop: 07/21/19 09:01 Last Admin: 01/19/19 09:24 Dose: Not Given Documented by: Levothyroxine Sodium (Synthroid) 150 mcg PO 0630 [facility] Stop: 07/21/19 06:31 Last Admin: 01/19/19 05:51 Dose: 150 mcg Documented by: Loratadine (Claritin) 10 mg PO QAM [facility]; Protocol Stop: 07/21/19 09:01 Last Admin: 01/19/19 09:23 Dose: 10 mg Documented by: Metolazone (Zaroxolyn) 2.5 mg PO Q48H [facility] Stop: 07/20/19 17:16 Last Admin: 01/18/19 20:32 Dose: 2.5 mg Documented by: Montelukast Sodium (Singulair) 10 mg PO DAILY [facility] Stop: 07/21/19 09:01 Last Admin: 01/19/19 09:23 Dose: 10 mg Documented by: Naloxone HCl (Narcan) 0.4 mg IVP Q2MPRN PRN PRN Reason: SEE COMMENTS Stop: 07/20/19 13:23 Nitroglycerin (Nitroglycerin) 0.4 mg SL Q5M PRN PRN Reason: Chest Pain Stop: 07/20/19 13:25 Omeprazole (Prilosec) 40 mg PO BIDAC [facility] Stop: 07/20/19 18:46 Last Admin: 01/19/19 08:37 Dose: 40 mg Documented by: Sucralfate (Carafate) 1 gm PO BID [facility] Stop: 07/20/19 21:01 Last Admin: 01/19/19 08:37 Dose: 1 gm Documented by: Triamcinolone Acetonide (Kenalog) 1 appl TP BID [facility] Stop: 07/20/19 21:01 Last Admin: 01/19/19 09:24 Dose: Not Given Documented by: Warfarin Sodium (Coumadin Perpt) 1 each PO DAILY@1800 PRN PRN Reason: SEE COMMENTS Stop: 07/20/19 18:01 Warfarin Sodium (Coumadin) 2.5 mg PO 1800 ONE Stop: 01/19/19 18:01 Laboratory Tests 01/18/19 01/18/19 01/18/19 10:51 15:54 21:48 Hgb INR Creatinine 1.34 H Troponin I 0.03 0.03 0.04 H* 01/19/19 01/19/19 01/19/19 01:53 01:53 01:53 Hgb 12.1 INR 2.5 Creatinine 1.18 Troponin I 0.04 H* - Imaging and Cardiology Chest Xray: report reviewed Echo: report reviewed - EKG Interpretation EKG results cardiology: other (Telemetry reviewed with average HR previous 12 hours noted to be 78, paced rhythm.) Consult Discharge Plan - Plan Referrals: Ary Aponte MD [Primary Care Provider] - (Appointment has been requested. Our offices will call with an appointment time and date.)
[2019-01-19] MEDS: Isosorbide MONOnitrate (24 HR) 30 MG TAB.ER.24H PO SCH (15:23)
[2019-01-19] MEDS ORDERED: *HR* Warfarin 2.5 MG TABLET PO ONE (18:00)
[2019-01-19] MEDS: Gabapentin 100 MG CAPSULE PO SCH (20:20)
[2019-01-19] MEDS: diazePAM 10 MG TABLET PO PRN (22:19)
[2019-01-20 04:30] LABS: INR 2.5; Prothrombin Time 28.7 Seconds (9.4-12.1)
[2019-01-20 04:32] LABS: Calcium 9.5 mg/dL (8.6-10.3); Potassium 3.1 mEq/L (3.5-5.1)
[2019-01-20 07:50] VITALS: BP 110/66
[2019-01-20] MEDS: Sucralfate 1 GM TABLET PO SCH (08:35)
[2019-01-20] MEDS: Furosemide 40 MG/4 ML VIAL IVP SCH (08:36)
[2019-01-20] MEDS: Isosorbide MONOnitrate (24 HR) 30 MG TAB.ER.24H PO SCH (08:36)
[2019-01-20] MEDS: Aspirin Enteric Coated 81 MG Tablet PO SCH (08:37)
[2019-01-20] MEDS: Loratadine 10 MG TABLET PO SCH (08:37)
[2019-01-20] MEDS: Capsaicin 0.025% 60 GM TUBE TP SCH (08:37)
[2019-01-20] MEDS: Lactulose Oral Soln 20 GM/30 ML UDC PO SCH (08:41)
[2019-01-20] MEDS ORDERED: Isosorbide MONOnitrate (24 HR) 30 MG TAB.ER.24H PO SCH (09:00)
--- NOTE | 2019-01-20 09:09 | Discharge Summary ---
<Martin Dias - Last Filed: 01/20/19 09:03> Orders not resulted at time of discharge: Pending orders 01/18/19 17:57 Culture,Urine [RM] Stat 01/21/19 04:00 PT/INR [Prothrombin Time INR] [COAG] AM 0400 01/22/19 04:00 PT/INR [Prothrombin Time INR] [COAG] AM 0400 01/23/19 04:00 PT/INR [Prothrombin Time INR] [COAG] AM 0400 Date of Encounter: 01/20/19 Time of Encounter: :19 - Discharge Diagnosis (1) CHF exacerbation Priority: Primary Status: Acute Qualifiers: Heart failure type: systolic Qualified Code(s): I50.23 - Acute on chronic systolic (congestive) heart failure (2) NSTEMI (non-ST elevated myocardial infarction) Priority: Primary Status: Acute (3) Chest pain Priority: Secondary Status: Acute Qualifiers: Chest pain type: precordial pain Qualified Code(s): R07.2 - Precordial pain (4) Palliative care encounter Priority: Secondary Status: Acute (5) Atrial fibrillation Priority: Secondary Status: Chronic Qualifiers: Atrial fibrillation type: permanent Qualified Code(s): I48.2 - Chronic atrial fibrillation (6) Acute renal failure superimposed on stage 3 chronic kidney disease Priority: Secondary Status: Acute Qualifiers: Acute renal failure type: unspecified Qualified Code(s): N17.9 - Acute kidney failure, unspecified; N18.3 - Chronic kidney disease, stage 3 (moderate) (7) Advance directive discussed with patient Priority: Secondary Status: Acute (8) IDDM (insulin dependent diabetes mellitus) Priority: Secondary Status: Acute Hospital course: Ms. Mosley is a 83 year old female with history of CAD status post CABG, atrial fibrillation on Coumadin, heart failure reduced EF 30% status post AICD, hypothyroidism, CVAs along with multiple other medical conditions presented to the emergency department with chest pain x 3 days located in the left side of her chest and does not radiate. Pain occurs both at rest and on ambulation. S he characterizes her pain as discomfort 4/10, associated with dypsnea. Admits to worsening lower extremity swelling as well. She was prescribed 2 L of oxygen for her multiple cardiac comorbidities and has not been using her oxygen for the past 2 years however for the past 3 days she had to start using her oxygen both at rest and on ambulation. She denies PND or orthopnea. She is on Lasix 80mg AM and 40mg qHS and reports compliance. While in the ED her EKG showed hyperacute T waves and cardiology was consulted and recommended conservative management. Troponins 0.04, 0.04. She is admitted for CHF exacerbation and NSTEMI. CODE STATUS discussed with the patient and she wishes to be DNR CCA DNI, she would not like to have any further cardiac interventions such as cardiac catheterization. He reports that she is had multiple heart surgeries in the past most of them at [facility] and was told by [facility] radiology equipment servicer that no further interventions can be done with her heart so she wishes not to have any further heart catheterizations. Palliative was consulted, and patient would prefer to take care of herself at home. She does not wish to pursue hospice at this time. For her intermittent chest pain and NSTEMI, this has improved since admission. She is encouraged to use Nitro SL as needed. We will also start her on Imdur 30mg PO daily. She will follow up with her PCP and cardiology. Continue with Coumadin, Carvedilol, ASA, BP medications. For her CHF exacerbation, we have continued to diurese her and LE edema has improved. She has loss >2L since admission. Continue with lasix 80mg qAM + 40mg qPM + metolazone 2.5mg PO [id number]. Management plan has been discussed with palliative and with patient. She is agreeable. Discharge discussed with: patient - Time Spent with Patient Total time spent providing and/or coordinating discharge services: Time spent: Greater than 30 minutes - Discharge Medications Prescriptions: New Isosorbide MONOnitrate (24 HR) [Imdur] 30 mg PO DAILY #30 tab.er.24h Nitroglycerin 0.4 mg SL Q5M PRN #30 tab.subl PRN Reason: Chest Pain Continued Loratadine [Claritin] 10 mg PO QAM Levothyroxine [Synthroid] 150 mcg PO QAM diazePAM [Valium] 10 mg PO BID PRN PRN Reason: Anxiety Warfarin [Coumadin] 2.5 mg PO DAILY Carvedilol 3.125 mg PO BID Oxygen 2 l NS AD metOLazone [Zaroxolyn] 2.5 mg PO Q48H Spironolactone [Aldactone] 50 mg PO BID Furosemide [Lasix] 80 mg PO QAM Furosemide [Lasix] 40 mg PO HS Insulin Lispro Protamin/Lispro [Humalog Mix 75-25 Kwikpen] 16 units SQ QAM Insulin Lispro Protamin/Lispro [Humalog Mix 75-25 Kwikpen] 8 units SQ HS Montelukast Sodium [Singulair] 10 mg PO DAILY Sucralfate [Carafate] 1 gm PO BID Triamcinolone Acet 0.1% CRM [Kenalog] 1 applic TP BID Aspirin [Lo-Dose Aspirin EC] 81 mg PO DAILY Clotrimazole 1% CRM [Lotrimin 1%] 1 appl TP BID PRN PRN Reason: Itching Omeprazole [PriLOSEC] 40 mg PO BID Home Medications: Levothyroxine [Synthroid] 150 mcg PO QAM 10/02/15 [History] Loratadine [Claritin] 10 mg PO QAM 10/02/15 [History] Warfarin [Coumadin] 2.5 mg PO DAILY 10/02/15 [History] diazePAM [Valium] 10 mg PO BID PRN 10/02/15 [History] Carvedilol 3.125 mg PO BID 01/12/17 [History] Oxygen 2 l NS AD 02/16/17 [History] metOLazone [Zaroxolyn] 2.5 mg PO Q48H 02/16/17 [History] Spironolactone [Aldactone] 50 mg PO BID 02/16/18 [History] Aspirin [Lo-Dose Aspirin EC] 81 mg PO DAILY 01/18/19 [History] Clotrimazole 1% CRM [Lotrimin 1%] 1 appl TP BID PRN 01/18/19 [History] Furosemide [Lasix] 40 mg PO HS 01/18/19 [History] Furosemide [Lasix] 80 mg PO QAM 01/18/19 [History] Insulin Lispro Protamin/Lispro [Humalog Mix 75-25 Kwikpen] 8 units SQ HS 01/18/19 [History] Insulin Lispro Protamin/Lispro [Humalog Mix 75-25 Kwikpen] 16 units SQ QAM 01/18/19 [History] Montelukast Sodium [Singulair] 10 mg PO DAILY 01/18/19 [History] Omeprazole [PriLOSEC] 40 mg PO BID 01/18/19 [History] Sucralfate [Carafate] 1 gm PO BID 01/18/19 [History] Triamcinolone Acet 0.1% CRM [Kenalog] 1 applic TP BID 01/18/19 [History] Isosorbide MONOnitrate (24 HR) [Imdur] 30 mg PO DAILY #30 tab.er.24h 01/20/19 [Rx] Nitroglycerin 0.4 mg SL Q5M PRN #30 tab.subl 01/20/19 [Rx] Allergies/Adverse Reactions: Allergy/AdvReac Type Severity Reaction Status Date / Time metoprolol Allergy Anaphylaxis Verified 01/18/19 18:59 oxycodone [From Percocet] AdvReac Intermediate See Verified 01/18/19 18:59 Comments fenofibrate [From Tricor] AdvReac Gastrointestinal Verified 01/18/19 18:59 Upset dye Allergy Anaphylaxis Uncoded 01/18/19 18:59 vicodin AdvReac Intermediate See Uncoded 01/18/19 18:59 Comments Date of admission: 01/18/19 13:30 Primary care physician: Ary Aponte Consults: 01/18/19 11:12 Consult to Cardiology [CONS] Stat Comment: Consulting Provider: [facility] Reason for Consult: Chest pain, shortness breath, EKG changes Time Notified: 11:13 Call Completed: Yes 01/18/19 16:38 Consult to Nurse Navigator [CONS] Routine Comment: CHF 01/19/19 09:06 Consult to Palliative Care [CONS] Routine Comment: Consulting Provider: [facility] Reason for Consult: chronically ill patient with CAD, does not wish for cardiac intervention. Call Completed: Yes - Constitutional Vitals: Temp Pulse Resp BP Pulse Ox 98.1 F 83 18 110/66 97 01/20/19 07:48 01/20/19 07:48 01/20/19 07:48 01/20/19 07:48 01/20/19 07:48 General appearance: Present: A&O X 3 Exam: General: Patient is alert, oriented, no acute distress, speaks in full sentences Head: atraumatic, normocephalic, Eye: normal appearance, PERRL, no scleral icterus, no conjunctival injection ENT: mucous membranes moist, normal external ear exam Neck: normal inspection, trachea midline, full ROM, Chest: normal inspection, symmetric chest rise Respiratory: Good respiratory effort. Bilateral breath sounds are clear without wheezing, crackles, or rhonchi. Cardiovascular: Regular rate and rhythm. s1 and s2 No clicks, rubs, gallops, or murmors. Abdomen: Bowel sounds present normoactive x-4 quadrants. Abdomen is soft, nondistended. no Epigastric tenderness. No guarding or rebound. No organomegaly noted, obese musculoskeletal: Spontaneously moving all extremities. 2+ edema, no calf tenderness Skin: warm, dry, intact. Neuro: Alert and oriented x3. No focal deficit Psych: Patient's affect is normal - Patient Status Disposition: Home Health Service Condition: Undetermined Functional capacity at discharge: independent ambulation Overall status at discharge: patient is progressing back to baseline - Discharge Instructions Instructions: Nitroglycerin (By mouth), Isosorbide Mononitrate (By mouth) Follow Up With: Ary Aponte MD [Primary Care Provider] - (Appointment has been requested. Our offices will call with an appointment time and date.) Additional Instructions: Imdur 30mg PO daily has been added to your medications for your chest pain. Please return to ED if your symptoms worsen. Follow up with your PCP. - Diet and Activity Activity: increase activity as tolerated Diet: advance to your usual diet <Yenifer Arnold - Last Filed: 01/20/19 12:59> Orders not resulted at time of discharge: Pending orders 01/18/19 17:57 Culture,Urine [RM] Stat Date of Encounter: 01/20/19 - Discharge Diagnosis (1) Acute exacerbation of CHF (congestive heart failure) Status: Chronic (2) Atrial fibrillation Status: Chronic Qualifiers: Atrial fibrillation type: permanent Qualified Code(s): I48.2 - Chronic atrial fibrillation (3) DVT prophylaxis Status: Acute (4) Acute renal failure superimposed on stage 3 chronic kidney disease Status: Acute Qualifiers: Acute renal failure type: unspecified Qualified Code(s): N17.9 - Acute kidney failure, unspecified; N18.3 - Chronic kidney disease, stage 3 (moderate) (5) Chest pain Status: Acute Qualifiers: Chest pain type: precordial pain Qualified Code(s): R07.2 - Precordial pain (6) Advance directive discussed with patient Status: Acute (7) IDDM (insulin dependent diabetes mellitus) Status: Acute Hospital course: Ms. Mosley is a 83 year old female - Time Spent with Patient Total time spent providing and/or coordinating discharge services: Date of admission: 01/18/19 13:30 Primary care physician: Ary Aponte Consults: 01/18/19 11:12 Consult to Cardiology [CONS] Stat Comment: Consulting Provider: [facility] Reason for Consult: Chest pain, shortness breath, EKG changes Time Notified: 11:13 Call Completed: Yes 01/18/19 16:38 Consult to Nurse Navigator [CONS] Routine Comment: CHF 01/19/19 09:06 Consult to Palliative Care [CONS] Routine Comment: Consulting Provider: [facility] Reason for Consult: chronically ill patient with CAD, does not wish for cardiac intervention. Call Completed: Yes - Constitutional Vitals: Temp Pulse Resp BP Pulse Ox 98.1 F 83 18 110/66 97 01/20/19 07:48 01/20/19 07:48 01/20/19 07:48 01/20/19 07:48 01/20/19 07:48 - Attending Attestation I examined this patient and my medical decision-making was reviewed with the Resident Physician Dr. Dias. I agree with the documented findings, disposition and treatment plan as described except to the extent set forth below. Ms. Mosley is a 83 y/o F with known past medical history of CAD status post PCI, ischemic cardiomyopathy, systolic CHF status post AICD, hypertension and hyperlipidemia patient presented to ER with a progressively worsening shortness of breath and volume overload with b/l LE edema. She also complained of intermittent chest pain. She was admitted in the hospital and placed on monitor tech. Her serial troponin slightly elevated at 0.04, however adynamic. Patient was evaluated by radiology equipment servicer. Pt do not wanted to proceed with any fu rther cardiac work up. However she would like to continue the medical treatment for CHF exacerbation and ok to try Imdur for her CP. So contiued IV Lasix and started on Imdur 30mg for CP. She denied any CP. Her b/l pedal edema also better today. Will add Metolazone to her diuretics. Medically stable to d/c home today Gen: A, A, O x3 Chest: Dimisnihed BS b/l, no crackles , no rales heart: S1S2+ RRR No murmurs Ext: 1+ pedal edema
--- NOTE | 2019-01-20 09:23 | Physician Discharge Referral ---
Home Health/Hosp Referral Info Transfer to: Home Health - Diagnosis (1) CHF exacerbation Priority: Primary Status: Acute (2) NSTEMI (non-ST elevated myocardial infarction) Priority: Primary Status: Acute (3) Chest pain Priority: Secondary Status: Acute (4) Palliative care encounter Priority: Secondary Status: Acute (5) Atrial fibrillation Priority: Secondary Status: Chronic (6) Acute renal failure superimposed on stage 3 chronic kidney disease Priority: Secondary Status: Acute (7) Advance directive discussed with patient Priority: Secondary Status: Acute (8) IDDM (insulin dependent diabetes mellitus) Priority: Secondary Status: Acute - Respiratory Orders Smoking Cessation: Smoking cessation has been advised. For more information, call the [place] Tobacco Quit Line at 2-226-AKSI-NOW. - Transfer Medications Prescriptions: Isosorbide MONOnitrate (24 HR) [Imdur] 30 mg PO DAILY #30 tab.er.24h Nitroglycerin 0.4 mg SL Q5M PRN #30 tab.subl PRN Reason: Chest Pain Home Medications: Levothyroxine [Synthroid] 150 mcg PO QAM 10/02/15 [History] Loratadine [Claritin] 10 mg PO QAM 10/02/15 [History] Warfarin [Coumadin] 2.5 mg PO DAILY 10/02/15 [History] diazePAM [Valium] 10 mg PO BID PRN 10/02/15 [History] Carvedilol 3.125 mg PO BID 01/12/17 [History] Oxygen 2 l NS AD 02/16/17 [History] metOLazone [Zaroxolyn] 2.5 mg PO Q48H 02/16/17 [History] Spironolactone [Aldactone] 50 mg PO BID 02/16/18 [History] Aspirin [Lo-Dose Aspirin EC] 81 mg PO DAILY 01/18/19 [History] Clotrimazole 1% CRM [Lotrimin 1%] 1 appl TP BID PRN 01/18/19 [History] Furosemide [Lasix] 40 mg PO HS 01/18/19 [History] Furosemide [Lasix] 80 mg PO QAM 01/18/19 [History] Insulin Lispro Protamin/Lispro [Humalog Mix 75-25 Kwikpen] 8 units SQ HS 01/18/19 [History] Insulin Lispro Protamin/Lispro [Humalog Mix 75-25 Kwikpen] 16 units SQ QAM 01/18/19 [History] Montelukast Sodium [Singulair] 10 mg PO DAILY 01/18/19 [History] Omeprazole [PriLOSEC] 40 mg PO BID 01/18/19 [History] Sucralfate [Carafate] 1 gm PO BID 01/18/19 [History] Triamcinolone Acet 0.1% CRM [Kenalog] 1 applic TP BID 01/18/19 [History] Isosorbide MONOnitrate (24 HR) [Imdur] 30 mg PO DAILY #30 tab.er.24h 01/20/19 [Rx] Nitroglycerin 0.4 mg SL Q5M PRN #30 tab.subl 01/20/19 [Rx] Allergies/Adverse Reactions: Allergy/AdvReac Type Severity Reaction Status Date / Time metoprolol Allergy Anaphylaxis Verified 01/18/19 18:59 oxycodone [From Percocet] AdvReac Intermediate See Verified 01/18/19 18:59 Comments fenofibrate [From Tricor] AdvReac Gastrointestinal Verified 01/18/19 18:59 Upset dye Allergy Anaphylaxis Uncoded 01/18/19 18:59 vicodin AdvReac Intermediate See Uncoded 01/18/19 18:59 Comments Certification: Further, I certify that my clinical findings support that this patient is homebound (i.e. absences from home require considerable and taxing effort and are for medical reasons or amish services or infrequently or short duration when for other reasons) because: Homebound Reason: Patient requires assistance of a person or device to safely leave home, Absences from home are contraindicated except to recieve medical care, Leaving home requires considerable and taxing effort due to condition, Severity of cardiac or pulmonary status limits activity tolerance Attestation: My signature below is to certify that this patient is under my care and that I, or nurse practitioner, or a physician's quality assurance assistant working with me, has a [id number] encounter with this patient.
[2019-01-20] MEDS ORDERED: *HR* Warfarin 2.5 MG TABLET PO ONE (18:00)
--- NOTE | 2019-01-23 11:06 | Electrocardiograph Report ---
[facility] Test Date: 2019-01-18 Pat Name: Wally Mosley Department: [id number] Room: 3B24 Gender: F End Packer: : [id number] Requested By: Casey Banks Order Number: [id number] Reading MD: Umair Villanueva Measurements Intervals [place] Rate: 84 P: 0 AR: 67 QRS: -90 QRSD: 150 T: 108 QT: 485 QTc: 485 Interpretive Statements Sinus rhythm Ventricular bigeminy Short AR interval LVH with IVCD, LAD and secondary repol abnrm Inferior infarct, acute (RCA) Lateral leads are also involved Probable RV involvement, suggest recording right precordial leads Electronically Signed On 01-23-2019 11:04:39 EDT by Umair Villnaueva
== END 2019-01-20 11:35 | disposition home health service (06) ==
LOC: 3BNU 10:34 → EMEROOARM 10:34 → SUATTDRO 13:30 → 3BNU 14:23
PROVIDERS: ADMIT Internal Medicine; ATTEND Family Medicine